=== PATIENT | male | born 1970 | race African-American/Black ===

== ENCOUNTER 2022-05-27 08:09 | Emergency (ER) | payer BC, SELFPAY ==
[2022-05-27 08:16] VITALS: BP 188/110; PULSE 72; RESP 20; TEMP 36.3; O2SAT 97
--- NOTE | 2022-05-27 08:31 | ED.SOB ---
HPI - SOB/Dyspnea General Chief Complaint: Upper Respiratory Infection Stated Complaint: Asthma Attack Time Seen by Provider: 05/27/22 08:32 Source: patient and RN notes reviewed Mode of arrival: ambulatory Limitations: no limitations History of Present Illness HPI Narrative: 51-year-old male presents with concern for asthma attack. He reports history of asthma. Reports since Wednesday he has been having episodes of shortness of breath and he has been using his albuterol inhaler. Reports since last night the albuterol inhaler does not seem to be helping as much, he had trouble sleeping because of his shortness of breath. Reports he is easily winded when doing normal activities such as walking across the room. He has never been hospitalized for asthma. He denies body aches, chills, sweats, fever. He reports nasal congestion and rhinorrhea. He denies known sick contacts. He last used his albuterol inhaler around 4 AM MD elicited complaint: asthma attack Related Data Home Medications Medication Instructions Recorded Confirmed albuterol 90 mcg/actuation aerosol mcg inhalation 05/27/22 inhaler atorvastatin 40 mg tablet 40 mg PO DAILY 05/27/22 05/27/22 gabapentin 300 mg capsule 300 mg PO DAILY 05/27/22 05/27/22 losartan 25 mg tablet 25 mg PO DAILY 05/27/22 05/27/22 metformin 1,000 mg tablet 1,000 mg PO BID 05/27/22 05/27/22 metoprolol succinate 50 mg 50 mg PO DAILY 05/27/22 05/27/22 tablet,extended release 24 hr Allergies Allergy/AdvReac Type Severity Reaction Status Date / Time morphine Allergy Itching Verified 05/27/22 08:36 Review of Systems Review of Systems: CONSTITUTIONAL: Denies malaise, chills, sweats, or fever. EYES: Denies visual changes, redness, or discharge. ENT: Reports rhinorrhea, congestion. Denies sinus pain, otalgia and sore throat. CARDIOVASCULAR: Denies chest pain, palpitations, or edema. RESPIRATORY: Reports cough, dyspnea. GASTROINTESTINAL: Denies abdominal pain, nausea, vomiting, diarrhea SKIN: Denies rash or itching. MUSCULOSKELETAL: Denies myalgia. NEUROLOGIC: Denies headache. All systems reviewed & are unremarkable except as noted in HPI and below PMFSH Comments At time of signature, agree with nursing past medical, surgical, social and family history. There is no relevant family history pertinent to the presenting complaint Exam Narrative: GENERAL: Well-appearing, well-nourished, and in no acute distress. HEAD: Normocephalic EYES: PERRLA, conjunctivae clear ENT: Nares clear, clear discharge. Mucous membranes moist. TM pearly gale with sharp light reflex bilaterally; no tragal tenderness. Oropharynx not erythematous without lesions. Tonsils not enlarged and without exudate, no drooling, no hoarseness, no trismus, uvula midline. NECK: Supple. No lymphadenopathy CHEST: Aeration fair, very scattered tight wheeze, otherwise clear to auscultation, breath sounds equal. No rhonchi, rales, or stridor. No respiratory distress, speaks in full sentences. HEART: Regular rate and rhythm. No murmur heard. SKIN: Warm, dry, no rash. NEURO: Alert and oriented x3. PSYCH: Normal mood and affect Course Course Emergency Course: Patient is aware of diagnosis, understands and agrees to treatment plan. Anticipatory guidance given. Patient agrees to follow-up as directed and is aware of reasons to seek care at the emergency department. Portions of this record may have been created with voice recognition software Level of Care: Express Care Visit Reevaluation(s) Reevaluation #1: Aeration improved after DuoNeb. Patient reports symptoms of shortness of breath have improved Date: 05/27/22 Time: 09:14 Vital Signs Vital signs: Vital Signs Temperature 97.4 F L 05/27/22 08:16 Pulse Rate 72 05/27/22 08:16 Respiratory Rate 20 05/27/22 08:16 Blood Pressure 188/110 H 05/27/22 08:16 Pulse Oximetry 97 05/27/22 08:16 Oxygen Delivery Room Air 05/27/22 08:16 Temperature 97.4 F L 05/27/22 0
[2022-05-27 08:40] VITALS: BP 200/110
[2022-05-27] MEDS: IPRATROPIUM BR 0.02% INH SOLN 0.5 MG/2.5 ML VIAL INHALATION (08:46)
[2022-05-27] MEDS: ALBUTEROL SULFATE NEB 2.5 MG/3 ML INH INHALATION (08:46)
== END 2022-05-27 09:16 | disposition home or self-care (01) ==
PROVIDERS: Emergency Provider Nurse Practitioner
DX: J45.901 Unspecified asthma with (acute) exacerbation (principal); E78.00 Pure hypercholesterolemia, unspecified; I10 Essential (primary) hypertension; E11.9 Type 2 diabetes mellitus without complications; Z95.1 Presence of aortocoronary bypass graft
CPT/HCPCS: 94640; 99213; G0463

== ENCOUNTER 2023-05-03 09:21 | Inpatient (IN) | payer BC, SELFPAY ==
[2023-05-03] VITALS (17 sets, daily range): BP systolic 140–190; BP diastolic 80–110; PULSE 80–92; RESP 16–22; TEMP 36.5–37.4; O2SAT 96–100; BMI 40.1
--- NOTE | ~2023-05-03 | US_ITS ---
EXAMINATION: US venous doppler [facility] DATE: 05/03/2023 18:56 INDICATION: edema . TECHNIQUE: Grayscale images without and with compression and Doppler images of the bilateral lower ex tremity veins were obtained. COMPARISON: None FINDINGS: The right common femoral vein, profunda (deep) femoral vein, femoral vein, popliteal vein, peroneal v ein, posterior tibial veins, gastrocnemius vein, and greater saphenous vein are patent. The left common femoral vein, profunda (deep) femoral vein, femoral vein, popliteal vein, peroneal v ein, posterior tibial veins, gastrocnemius vein, and greater saphenous vein are patent. IMPRESSION: Patent bilateral lower extremity veins. No evidence of deep venous thrombosis. Reviewed, dictated and finalized at location K.
--- NOTE | ~2023-05-03 | XR_ITS ---
EXAMINATION: XR chest 2V DATE: 05/03/2023 10:16 INDICATION: Chest pain and shortness of breath TECHNIQUE: AP and lateral views of the chest are obtained. COMPARISON: None available FINDINGS: There are minimal airspace opacities of the left lung base. No pleural effusion or pneumoth orax. The heart size is normal. Median sternotomy wires are consistent with prior cardiac surgery. Th ere is mild thoracic spondylosis. IMPRESSION: 1. Minimal left basilar airspace opacity, consistent with atelectasis versus pneumonia. Reviewed, dictated and finalized at location B. IMPRESSION: 1. Minimal left basilar airspace opacity, consistent with atelectasis versus pn eumonia.
--- NOTE | 2023-05-03 09:26 | ECG_ITS ---
Measurements Intervals [place] Rate: 87 P: 48 NM: 150 QRS: -38 QRSD: 113 T: 78 QT: 355 QTc: 428 Interpretive Statements SINUS RHYTHM POSSIBLE LEFT ATRIAL ENLARGEMENT [-0.1mV P WAVE IN V1/V2] LEFT ANTERIOR SUPERIOR HEMIBLOCK ABNORMAL ECG INTERPRETATION BASED ON A DEFAULT AGE OF 40 YEARS NO PREVIOUS ECG AVAILABLE FOR COMPARISON Electronically Signed On 05-03-2023 16:55:58 CDT by Valdo Layne M.D.
[2023-05-03] MEDS: ASPIRIN 81 MG CHEWABLE TABLET 324 MG PO (09:36)
[2023-05-03 09:55] LABS: Basophils Absolute Auto 0.1 K/mm3 (0.0-0.1); Basophils Percent Auto 0.5 % (0.2-1.2); Eosinophils Absolute Auto 0.3 K/mm3 (0-0.3); Eosinophils Percent Auto 2.5 % (0-4.4); Hemoglobin 12.4 g/dL (14.0-18.0); Immature Granulocyte Absolute 0.04 K/mm3 (0.00-0.031); Immature Granulocyte Percent A 0.4 % (0-0.5); Lymphocytes Absolute Auto 1.68 K/mm3 (0.9-3.2); Mean Corpuscular HGB Conc 30.2 g/dl (32-36); Mean Corpuscular Hemoglobin 23.5 pg (26-34); Mean Corpuscular Volume 77.7 fl (80-100); Mean Platelet Volume 10.6 fl (7.4-10.4); Monocytes Absolute Auto 0.7 K/mm3 (0.1-0.6); Neutrophils Absolute Auto 7.8 K/mm3 (1.3-6.7); Neutrophils Percent Auto 73.6 % (45.5-73.1); Platelet Count Result 282 k/mm3 (150-375); Red Blood Count 5.28 M/mm3 (4.6-6.20); Red Cell Distribution Width 16.5 % (11.5-14.5); White Blood Count 10.5 K/mm3 (4.5-10.0)
[2023-05-03 10:07] LABS: Alanine Aminotransferase 27 U/L (6-50); Albumin Level 4.4 g/dL (3.5-5.1); Alkaline Phosphatase 87 U/L (38-126); Anion Gap 11 mmol/L (8-16); Aspartate Amino Transferase 45 U/L (17-59); Bilirubin,Total 0.7 mg/dL (0.2-1.3); Blood Urea Nitrogen 17 mg/dL (9-20); Calcium 9.7 mg/dL (8.4-10.2); Carbon Dioxide 24 mmol/L (22-30); Chloride 96 mmol/L (98-107); Estimated Glomerular Filt Rate > 60; Glucose 424 mg/dL (65-110); INR 0.9; Lipase 181 U/L (23-300); Potassium 4.2 mmol/L (3.4-5.0); Prothrombin Time 12.3 Seconds (11.1-14.7); Sodium 131 mmol/L (137-145)
[2023-05-03 10:08] LABS: Partial Thromboplastin Time 24.4 SECONDS (22.3-36.8)
[2023-05-03 10:16] LABS: Troponin I 0.022 ng/mL (0.000-0.034)
--- NOTE | 2023-05-03 12:04 | PC.NURSE ---
Pts daughter called for update. This RN let daughter know that we are waiting on repeat labs and she can call back later for further update.
[2023-05-03 12:43] LABS: Troponin I 0.095 ng/mL (0.000-0.034)
--- NOTE | 2023-05-03 13:30 | ED.CHESTPAIN ---
HPI - Chest Pain General Chief Complaint: Chest Pain Stated Complaint: chest pain and sob Time Seen by Provider: 05/03/23 09:27 History of Present Illness HPI narrative: Patient is a 52-year-old male who presents ER with chest pain and shortness of breath. Ongoing over the last 4 days. Has history of cardiac bypass. Symptoms are worse with exertion. He does have some mild shortness of breath. Bleeding patient reports he has been having congestion and a productive cough. No lower extremity swelling or cramping. Reports compliance with home medication. Related Data Home Medications Medication Instructions Recorded Confirmed losartan 25 mg tablet 25 mg PO DAILY 05/27/22 05/03/23 metformin 1,000 mg tablet 1,000 mg PO BID 05/27/22 05/03/23 atorvastatin 80 mg tablet 80 mg PO DAILY 05/03/23 05/03/23 empagliflozin 25 mg tablet 25 mg PO DAILY 05/03/23 05/03/23 (Jardiance) fluoxetine 20 mg capsule 40 mg PO DAILY 05/03/23 05/03/23 gabapentin 400 mg capsule 400 mg PO QID 05/03/23 05/03/23 hydrochlorothiazide 25 mg tablet 25 mg PO DAILY 05/03/23 05/03/23 metoprolol succinate 100 mg 100 mg PO DAILY 05/03/23 05/03/23 tablet,extended release 24 hr Allergies Allergy/AdvReac Type Severity Reaction Status Date / Time morphine Allergy Itching Verified 05/03/23 09:34 Review of Systems Review of Systems: All systems reviewed & are unremarkable except as noted in HPI and below Constitutional: Constitutional: Denies chills, Denies fatigue and Denies fever(s) ENT: Denies nasal congestion and Denies sore throat Cardiovascular: Cardiovascular: Reports chest pain, Denies rapid heart rate and Denies radiating jaw, neck or arm pain Respiratory: Respiratory: Reports cough, Reports dyspnea and Denies wheezing Gastrointestinal: Gastrointestinal: Denies abdominal pain, Denies nausea and Denies vomiting Musculoskeletal: Musculoskeletal: Denies back pain, Denies arthralgias, Denies joint swelling and Denies muscle cramps Integumentary/Breasts: Skin/Breast: Denies erythema and Denies rash PMF Past Medical History Medical History (Updated 05/03/23 @ 19:58 by Devin Sotelo MD) Asthma Coronary artery disease History of rhabdomyolysis Hypertension associated with diabetes Mixed diabetic hyperlipidemia associated with type 2 diabetes mellitus Morbid obesity with BMI of 40.0-44.9, adult DANITA (obstructive sleep apnea) Peripheral neuropathy Type 2 diabetes mellitus Surgical History Surgical History (Updated 05/03/23 @ 16:35 by Alona Dash PA-C) History of five vessel coronary artery bypass (2019) Done at [place]. Family History Family History Other Coronary artery disease Social History Social History Social History: Surrogate medical decision maker: yoli Dumont. Code status: Full code. Smoking status: Never smoker Alcohol intake: current Alcohol use details: History of heavier alcohol use. Occasional binges. Substance use: never Lack of Transportation: No Lack of Food: Never True Current Housing: I Have Housing Concerned About Future Housing: No Difficulty Paying Gas/Electric Bills: No Difficulty Paying for Meds: No Currently Unemployed: No Education: High School Diploma/GED Difficulty w/ Childcare or Family Care: No Additional living arrangements comments: Lives with severino and several of her family members have moved into their home as well. Additional occupation/education comments: Software. Spiritual care concerns: No Exam Narrative: GENERAL: Well-appearing, well-nourished, and in no acute distress. HEAD: Normocephalic, atraumatic. EYES: PERRL and EOMI. ENT: Mucous membranes moist. CHEST: Clear to auscultation. No respiratory distress. HEART: Regular rate and rhythm. Normal peripheral pulses. ABDOMEN: Soft, nontender, nondistended. EXT
[2023-05-03] MEDS: HEPARIN SODIUM 5,000 UNITS/ML VIAL 4000 UNITS IV PUSH ×2 (14:04→21:24)
[2023-05-03] MEDS: HEPARIN SOD/D5W 100 UNITS/ML 25,000 UNITS/250 ML BAG 10 UNITS IV CONT (14:05)
--- NOTE | 2023-05-03 15:42 | PM.CNCAR ---
Assessment and Plan Assessment and plan (1) NSTEMI (non-ST elevated myocardial infarction): Code(s): I21.4 - Non-ST elevation (NSTEMI) myocardial infarction Status: Acute Assessment and Plan: Patient presents with concerning chest pressure some atypical constant over past several days nonetheless with a prior known history of 5 vessel bypass 2019 and multiple risk factors including diabetes mellitus, hypertension, hyperlipidemia with elevated troponin concerning for NSTEMI. Keep patient NPO after midnight. Agree with anticoagulation with heparin infusion for now. Continue aspirin 81 mg daily for antiplatelet therapy. Continue atorvastatin 40 mg bedtime, Toprol XL 50 mg daily. We discussed risk versus benefit in this regard medical management versus invasive angiography for definitive evaluation of coronary anatomy. Patient verbalized understanding. Repeat 12 lead ECG. Repeat troponin in a.m.. If severe and unrelenting chest pain and or hemodynamic instability or urgent coronary angiography may be considered. Patient is hemodynamically stable and on room air at this time. Continue monitor closely. Continue to monitor on telemetry. Discussed risks and benefits invasive angiography versus medical therapy. All questions answered to his satisfaction. Add nitroglycerin paste given chest pain and uncontrolled hypertension. -aspirin 81 mg daily, atorvastatin 40 mg daily. Continue beta christian for antianginal therapy. Nitropaste as above for antianginal benefit. -will plan to keep patient NPO after midnight for anticipated invasive angiography and delineation of coronary anatomy. Risks vs benefits of invasive angiography discussed. Continue monitor patient very closely in IMU. Patient high risk for complications including arrhythmias. 2D echocardiogram in a.m.. (2) Hypertension associated with diabetes: Code(s): E11.59 - Type 2 diabetes mellitus with other circulatory complications; I15.2 - Hypertension secondary to endocrine disorders Status: Acute Assessment and Plan: Patient hypertensive at presentation and remains so. Resume antihypertensive therapy including losartan 25 mg daily and Toprol XL 50 mg daily for blood pressure control. (3) Upper respiratory infection: Code(s): J06.9 - Acute upper respiratory infection, unspecified Status: Acute Assessment and Plan: Patient presents with symptoms suggestive of URI with ongoing cough despite azithromycin and prednisone. However, while there may be a component of musculoskeletal chest pain due to frequent coughing troponin elevation concerning for NSTEMI as a separate process of the chest x-ray suggests possible atelectasis versus pneumonia bronchodilator therapy per hospitalist service with albuterol. Remains on prednisone. Need for antibiotics per primary service. (4) Mixed diabetic hyperlipidemia associated with type 2 diabetes mellitus: Code(s): E11.69 - Type 2 diabetes mellitus with other specified complication; E78.2 - Mixed hyperlipidemia Status: Acute Assessment and Plan: Continue atorvastatin 40 mg bedtime. Check lipid panel. Goal LDL less than 70. Further adjustments as appropriate. (5) DANITA (obstructive sleep apnea): Code(s): G47.33 - Obstructive sleep apnea (adult) (pediatric) Status: Acute Assessment and Plan: Patient has yet to receive CPAP at home but states it was due this week. Will place CPAP while in hospital. (6) Diabetes mellitus: Qualifiers: Diabetes mellitus type: type 2 Diabetes mellitus skilled nursing insulin use: without skilled nursing use Diabetes mellitus complication status: with circulatory complication Code(s): E11.9 - Type 2 diabetes mellitus without complications Status: Acute Assessment and Plan: Glucose control per primary service. Hyperglycemia contributed by use of prednisone for treatment of URI symptoms. (7) Morbid obesity with BMI of 40.0-44.9
--- NOTE | 2023-05-03 15:52 | PM.IMHP ---
H&P: HPI History of Present Illness Date/Time: 05/03/23 15:30 Chief Complaint: Chest pain. Narrative: This is a very pleasant 52-year-old male with coronary artery disease status post 5 vessel bypass in 2019, hypertension, hyperlipidemia, type 2 diabetes mellitus, and asthma who presented to the emergency department via private vehicle from home for evaluation of chest pain. The patient provides the following history. He normally has a dry cough but last week it became productive of yellowish-brown sputum. He was seen in urgent care at which time he was prescribed a Z-Ronald for an upper respiratory infection; he tested negative for COVID at that time. He continues to have cough however his phlegm is now clear. The last several days he has started wheezing which has not improved with his rescue inhaler. He is now having nonradiating, diffuse anterior chest pressure. On occasion he has palpitations and sensations of racing heart as well. He has been sweating more than normal and has had some nausea and lightheadedness. Some family members have had similar URI symptoms as well. He reports increasing stress recently. He denies fever, chills, pleuritic pain, orthopnea, paroxysmal nocturnal dyspnea, vomiting, and calf pain. In the ED: He was afebrile on arrival. Blood pressure has been as high as 190/106. Labs were significant for WBC count 10.5, hemoglobin 12.4, sodium 131, potassium 4.2, creatinine 1.00, glucose 424, 0.095. EKG showed a sinus rhythm with left axis deviation no acute ST segment elevations or depressions. He was given aspirin 324 mg and has been started on heparin drip and is being admitted in this setting for close monitoring and Cardiology consultation. Review of Systems Review of Systems: Twelve systems were reviewed. He reports having a runny nose and some sore throat last week when he had the cough but that has improved somewhat. He continues to have a cough as detailed above. His most recent hemoglobin A1c was 7.2%. Random glucose today however was over 400. No history of DVT. Except as documented, all other systems were reviewed and are negative. [facility] Past Medical History Medical History (Updated 05/03/23 @ 16:19 by Alona Dash PA-C) Asthma Coronary artery disease History of rhabdomyolysis Hypertension associated with diabetes Mixed diabetic hyperlipidemia associated with type 2 diabetes mellitus Morbid obesity with BMI of 40.0-44.9, adult Peripheral neuropathy Type 2 diabetes mellitus Surgical History Surgical History (Updated 05/03/23 @ 16:35 by Alona Dash PA-C) History of five vessel coronary artery bypass (2019) Done at [place]. Family History Family History (Updated 05/03/23 @ 16:02 by Alona Dash PA-C) Other Coronary artery disease Social History Social History (Updated 05/03/23 @ 16:06 by Alona Dash PA-C) Social History: Surrogate medical decision maker: yoli Dumont. Code status: Full code. Smoking status: Never smoker Alcohol intake: current Alcohol use details: History of heavier alcohol use. Occasional binges. Additional living arrangements comments: Lives with severino and several of her family members have moved into their home as well. Additional occupation/education comments: Software. Meds Home Medications and Allergies Home Medications Medication Instructions Recorded Confirmed Type albuterol 90 mcg/actuation aerosol mcg inhalation 05/27/22 History inhaler albuterol sulfate 90 mcg/actuation 2 puff inhalation QID PRN 05/27/22 Rx aerosol inhaler shortness of breath or wheezing #8.5 grams atorvastatin 40 mg tablet 40 mg PO DAILY 05/27/22 05/27/22 History gabapentin 300 mg capsule 300 mg PO DAILY 05/27/22 05/27/22 History losartan 25 mg tablet 25 mg PO DAILY 05/27/22 05/27/22 History metformin 1,000 mg tablet 1,000 mg PO BID 05/27/22 05/27/22 History metoprolol succinate 50 mg 50 mg PO DAILY 05/27/22 05/27/22 Histor
[2023-05-03 15:54] LABS: Troponin I 0.234 ng/mL (0.000-0.034)
[2023-05-03] MEDS: NITROGLYCERIN SL 0.4 MG TABLET SUBLINGUAL (16:02)
--- NOTE | 2023-05-03 16:14 | ECG_ITS ---
Measurements Intervals [place] Rate: 82 P: 29 MI: 145 QRS: -31 QRSD: 111 T: 63 QT: 372 QTc: 435 Interpretive Statements SINUS RHYTHM LEFT ANTERIOR SUPERIOR HEMIBLOCK ABNORMAL ECG COMPARED TO ECG 05/03/2023 09:31:52 NO SIGNIFICANT DIFFERENCE Electronically Signed On 05-03-2023 17:19:31 CDT by Valdo Layne M.D.
--- NOTE | 2023-05-03 16:19 | ADMGEN ---
This patient, Simba Quijano, was admitted to IMU Room 205-02. Patient/family oriented to hospital policies and general routines including ID bracelet, bed and alarms, visiting hours, pain management, procedures, bathroom and other care routines, personal items, smoking policy, room service/diet, and visiting hours. Information on how to activate the Rapid Response Team has been discussed. Patient/Family are encouraged to report perceived risks to care and to ask questions if they do not understand what they are told or what they should do.
[2023-05-03 17:18] LABS: Iron 60 ug/dL (49-181); Percent Iron Saturation 13 % (20-50)
[2023-05-03 18:36] LABS: Hemoglobin A1C 11.9 % (<5.7)
[2023-05-03 18:55] LABS: Glucose Point of Care 309 mg/dl (65-105)
[2023-05-03] MEDS: INSULIN ASPART (*BKC) 100 UNITS/ML SUB-Q ×2 (18:57→21:35)
[2023-05-03 19:08] LABS: Folic Acid > 20.0 ng/mL (2.76->20)
[2023-05-03 20:19] LABS: Partial Thromboplastin Time 29.7 SECONDS (22.3-36.8)
[2023-05-03 20:24] LABS: Glucose Point of Care 302 mg/dl (65-105)
[2023-05-03] MEDS: IPRATROPIUM BR 0.02% INH SOLN 0.5 MG/2.5 ML VIAL INHALATION (20:32)
[2023-05-03] MEDS: ALBUTEROL SULFATE NEB 2.5 MG/3 ML INH INHALATION (20:32)
[2023-05-03] MEDS: NITROGLYCERIN OINTMENT 1 INCH DOSE 0.5 INCH TRANSDERM (21:47)
[2023-05-04] VITALS (22 sets, daily range): BP systolic 101–155; BP diastolic 35–94; PULSE 71–90; RESP 20–22; TEMP 36.3–36.7; O2SAT 94–99
--- NOTE | 2023-05-04 | ECHO_ITS ---
Patient Info Name: Simba Quijano Age: 52 years : 1970 Gender: Male Ht: 72 in Wt: 294 lbs BSA: 2.66 m2 HR: 80 bpm BP: 145 / 35 mmHg Heart Rhythm: Sinus Rhythm Technical Quality: Poor Exam Date: 05/04/2023 3:25 PM Exam Location: [facility] Patient Status: Inpatient Admit Date: 05/03/2023 Staff Ordering Physician: Santy Sanchez MD (cuauhtemoc/balaji) Furnace Caretaker: Chirag Capone RDCS Attending Provider: Erum Ardon DO Referring Physician: Daniel MORALES; Exam Type: CA echo dop color flow w con Study Info Indications - NSTEMI Complete two-dimensional, color flow and Doppler transthoracic echocardiogram is performed with contrast to opacify the left ventricle and to improve the deliniation of the left ventricle endocardial borders. Reason for Poor Study: poor echocardiographic windows Summary 1. Technically difficult study with limited views. Definity contrast enhancement administered. 2. Left ventricular chamber dimension is normal. 3. Left ventricular systolic function is normal, estimated at 65-70%. 4. There is moderately increased left ventricular wall thickness. 5. The left ventricular diastolic function is grade II diastolic dysfunction. 6. There is no aortic valve stenosis. 7. There is trace mitral valve regurgitation. 8. There is trace tricuspid valve regurgitation. 9. No pulmonary hypertension, estimated pulmonary arterial systolic pressure is 10 mmHg. Left Ventricle Left ventricular chamber dimension is normal. Left ventricular systolic function is normal, estimated at 65-70%. There is moderately increased left ventricular wall thickness. The left ventricular diastolic function is grade II diastolic dysfunction. Technically difficult study with limited views. Definity contrast enhancement administered. Right Ventricle Right ventricular chamber dimension is normal. Right ventricular systolic function is normal. Left Atria Left atrial chamber dimension is normal. Right Atria Right atrial chamber dimension is not well visualized. Aortic Valve The aortic valve is not well visualized. There is no aortic valve stenosis. There is no aortic valve regurgitation. Pulmonic Valve The pulmonic valve is not well visualized. Mitral Valve The mitral valve has normal leaflets. There is trace mitral valve regurgitation. The mitral valve annulus is mildly calcified. Tricuspid Valve The tricuspid valve leaflets are not well visualized. There is trace tricuspid valve regurgitation. No pulmonary hypertension, estimated pulmonary arterial systolic pressure is 10 mmHg. Pericardium/Pleural The pericardium appears normal. There is no pericardial effusion. Aorta The aortic root size at the sinus of Valsalva is normal. The prox ascending aorta size is normal. There is mild aortic atherosclerosis. Left Ventricular Outflow Tract Name Value Normal LVOT 2D LVOT Diameter 1.99 cm LVOT Doppler LVOT Peak Gradient 3 mmHg LVOT Mean Gradient 2 mmHg LVOT VTI 19.86 cm LVOT VTI/AV VTI Ratio 0.66 LVOT Stroke Volume 61.99 ml LVOT C
[2023-05-04] MEDS: AZITHROMYCIN 250 MG TABLET 500 MG PO (00:14)
[2023-05-04 00:58] LABS: Influenza A QL RT-PCR Negative (Negative); Influenza B QL RT-PCR Negative (Negative); SARS-CoV-2 RNA PCR Negative (Negative)
[2023-05-04 04:00] LABS: Basophils Percent Auto 0.4 % (0.2-1.2); Eosinophils Absolute Auto 0.3 K/mm3 (0-0.3); Eosinophils Percent Auto 2.9 % (0-4.4); Hematocrit 38.1 % (42.0-52.0); Immature Granulocyte Absolute 0.06 K/mm3 (0.00-0.031); Immature Granulocyte Percent A 0.6 % (0-0.5); Lymphocytes Absolute Auto 1.85 K/mm3 (0.9-3.2); Lymphocytes Percent Auto 18.6 % (18.3-44.2); Mean Corpuscular HGB Conc 31.5 g/dl (32-36); Mean Platelet Volume 9.9 fl (7.4-10.4); Monocytes Absolute Auto 0.8 K/mm3 (0.1-0.6); Monocytes Percent Auto 7.8 % (2.6-8.5); Neutrophils Percent Auto 69.7 % (45.5-73.1); Platelet Count Result 256 k/mm3 (150-375); Red Blood Count 5.01 M/mm3 (4.6-6.20); Red Cell Distribution Width 16.1 % (11.5-14.5)
[2023-05-04 04:12] LABS: Anion Gap 8 mmol/L (8-16); Blood Urea Nitrogen 18 mg/dL (9-20); Calcium 9.5 mg/dL (8.4-10.2); Carbon Dioxide 24 mmol/L (22-30); Chloride 99 mmol/L (98-107); Estimated CRCL calculation 106 ml/min; Estimated Glomerular Filt Rate > 60; Glucose 348 mg/dL (65-110); Potassium 4.3 mmol/L (3.4-5.0); Sodium 131 mmol/L (137-145)
[2023-05-04 04:13] LABS: Partial Thromboplastin Time 38.8 SECONDS (22.3-36.8)
--- NOTE | 2023-05-04 04:20 | PCRCNOTE ---
Pt refused to wear CPAP over night. Says he couldn't tolerate it yet. RN aware
[2023-05-04] MEDS: HEPARIN SODIUM 5,000 UNITS/ML VIAL 4000 UNITS IV PUSH ×2 (04:36→12:25)
--- NOTE | 2023-05-04 05:01 | PCRCNOTE ---
PT REFUSED 02:00 JULIA DAS.
[2023-05-04] MEDS: NITROGLYCERIN OINTMENT 1 INCH DOSE 0.5 INCH TRANSDERM ×2 (05:18→12:40)
[2023-05-04] MEDS: HEPARIN SOD/D5W 100 UNITS/ML 25,000 UNITS/250 ML BAG 18 UNITS IV CONT (05:53)
[2023-05-04] MEDS: INSULIN ASPART (*BKC) 100 UNITS/ML 8 UNITS SUB-Q (06:13)
[2023-05-04] MEDS: INSULIN ASPART (*BKC) 100 UNITS/ML SUB-Q ×4 (08:28→20:20)
[2023-05-04 08:33] LABS: Glucose Point of Care 277 mg/dl (65-105)
[2023-05-04] MEDS: IPRATROPIUM BR 0.02% INH SOLN 0.5 MG/2.5 ML VIAL INHALATION ×3 (08:56→22:05)
[2023-05-04] MEDS: ALBUTEROL SULFATE NEB 2.5 MG/3 ML INH INHALATION ×3 (08:56→22:06)
[2023-05-04] MEDS: ATORVASTATIN 40 MG TABLET 80 MG PO (10:07)
[2023-05-04] MEDS: AZITHROMYCIN 250 MG TABLET PO (10:08)
[2023-05-04] MEDS: LOSARTAN POTASSIUM 25 MG TABLET PO ×2 (10:08→12:39)
[2023-05-04] MEDS: FLUoxetine HCL 20 MG CAPSULE 40 MG PO (10:08)
[2023-05-04] MEDS: EMPAGLIFLOZIN 25 MG TABLET PO (10:08)
[2023-05-04] MEDS: GABAPENTIN 400 MG CAPSULE PO ×4 (10:08→19:27)
[2023-05-04] MEDS: hydroCHLOROthiazide 25 MG TABLET PO (10:08)
[2023-05-04] MEDS: METOPROLOL SUCCINATE EXT REL 100 MG TABCR PO (10:09)
[2023-05-04] MEDS: ACETAMINOPHEN 325 MG TABLET 650 MG PO ×2 (10:09→19:27)
[2023-05-04 10:52] LABS: Partial Thromboplastin Time 57.7 SECONDS (22.3-36.8)
--- NOTE | 2023-05-04 11:45 | PM.PNCARD ---
Progress Note: A&P Assessment and Plan (1) Non-ST elevated myocardial infarction (non-STEMI): Code(s): I21.4 - Non-ST elevation (NSTEMI) myocardial infarction Status: Acute Assessment and Plan: Patient presents with concerning chest pressure, some atypical features, constant over past several days. Nonetheless with a prior known history of 5 vessel bypass 2019 and multiple risk factors including diabetes mellitus, hypertension, hyperlipidemia with elevated troponin concerning for NSTEMI.? Agree with anticoagulation with heparin infusion for now.? Continue aspirin 81 mg daily for antiplatelet therapy.? Continue atorvastatin 80 mg bedtime, Toprol XL 100mg daily.? Dr. Sweet discussed with the patient on 05/03 regarding cardiac catheterization vs medical management with regard to indications for cardiac cath and risks vs benefits of management/treatment options. Patient was agreeable to cardiac cath on 05/03, however, upon my discussion with the patient this morning, he states he does not want cardiac cath at this time and wants to do medical management. Recommendations: - Heparin drip for total of 48 hours. - ASA 81mg once daily - High-intensity statin - Continue Toprol. - Will optimize antianginal therapy with the addition of Imdur 30mg QD. - Needs better blood pressure control. Increase Losartan to 50mg as noted below. - Obtain echocardiogram. (2) Hypertension associated with diabetes: Code(s): E11.59 - Type 2 diabetes mellitus with other circulatory complications; I15.2 - Hypertension secondary to endocrine disorders Status: Acute Assessment and Plan: Patient hypertensive at presentation and remains so. On Losartan 25mg QD, HCTZ 25mg QD, and Toprol 100mg QD. Will increase Losartan to 50mg to optimize blood pressure control. (3) Upper respiratory infection: Code(s): J06.9 - Acute upper respiratory infection, unspecified Status: Acute Assessment and Plan: Patient presents with symptoms suggestive of URI with ongoing cough despite azithromycin and prednisone.? However, while there may be a component of musculoskeletal chest pain due to frequent coughing troponin elevation concerning for NSTEMI as a separate process of the chest x-ray suggests possible atelectasis versus pneumonia bronchodilator therapy per hospitalist service with albuterol.? Remains on prednisone.? Need for antibiotics per primary service. Blood cultures ordered and pending. (4) Mixed diabetic hyperlipidemia associated with type 2 diabetes mellitus: Code(s): E11.69 - Type 2 diabetes mellitus with other specified complication; E78.2 - Mixed hyperlipidemia Status: Acute Assessment and Plan: Continue atorvastatin 80 mg bedtime.? Check lipid panel.? Goal LDL less than 70.? Further adjustments as appropriate. (5) DANITA (obstructive sleep apnea): Code(s): G47.33 - Obstructive sleep apnea (adult) (pediatric) Status: Acute Assessment and Plan: Patient has yet to receive CPAP at home but states it was due this week.? Will place CPAP while in hospital. (6) Diabetes mellitus: Qualifiers: Diabetes mellitus type: type 2 Diabetes mellitus skilled nursing insulin use: without skilled nursing use Diabetes mellitus complication status: with circulatory complication Code(s): E11.9 - Type 2 diabetes mellitus without complications Status: Acute Assessment and Plan: Glucose control per primary service.? Hyperglycemia contributed by use of prednisone for treatment of URI symptoms. (7) Morbid obesity with BMI of 40.0-44.9, adult: Code(s): E66.01 - Morbid (severe) obesity due to excess calories; Z68.41 - Body mass index [BMI] 40.0-44.9, adult Status: Acute Assessment and Plan: Lifestyle modification counseling. Subjective Date/time seen: 05/04/23 11:45 Interval history: Reason for visit: NSTEMI HPI: Patient is a very pleasant 52-year-old Afro-[place] male with
[2023-05-04 12:12] LABS: Cholesterol 284 mg/dL (0-200); HDL Direct 40 mg/dL
[2023-05-04 12:22] LABS: LDL Cholesterol Direct 97 mg/dL
[2023-05-04 12:35] LABS: Glucose Point of Care 274 mg/dl (65-105)
[2023-05-04] MEDS: ISOSORBIDE MONONITRATE 30 MG TAB.ER.24H PO (12:40)
[2023-05-04 12:46] LABS: Triglycerides 1293 mg/dL (<150)
[2023-05-04] MEDS: PERFLUTREN LIPID MICROSPHERES 1.5 ML VIAL DILUTED TO 10 ML TOTAL VOLUME IV PUSH (15:50)
--- NOTE | 2023-05-04 16:07 | PM.IMPN ---
Progress Note: A&P Assessment and Plan (1) Non-ST elevated myocardial infarction: Code(s): I21.4 - Non-ST elevation (NSTEMI) myocardial infarction Status: Acute (2) Type 2 diabetes mellitus with hyperglycemia: Code(s): E11.65 - Type 2 diabetes mellitus with hyperglycemia Status: Acute (3) Upper respiratory infection: Code(s): J06.9 - Acute upper respiratory infection, unspecified Status: Acute (4) Abnormal chest x-ray: Code(s): R93.89 - Abnormal findings on diagnostic imaging of other specified body structures Status: Acute (5) Coronary artery disease: Code(s): I25.10 - Atherosclerotic heart disease of [place] coronary artery without angina pectoris Status: Acute (6) Asthma: Code(s): J45.909 - Unspecified asthma, uncomplicated Status: Acute (7) Hypertension associated with diabetes: Code(s): E11.59 - Type 2 diabetes mellitus with other circulatory complications; I15.2 - Hypertension secondary to endocrine disorders Status: Acute Plan The patient presented to the emergency department for evaluation of anterior chest pressure he has also reported to have dry cough over the past week but has progressed to become productive with yellow brown sputum. He was prescribed a Z-Ronald for the infection test negative for COVID. Assault did to be wheezy with did improve with rescue inhaler reports some palpitation no fever chills not present to the ER. In the ED was afebrile hypertensive WBC 10.5 blood sugar was 424. Troponin was 0.095. Chest x-ray showed minimal left basilar airspace disease. Treated for community-acquired pneumonia with ceftriaxone and azithromycin Serial troponin elevated from 0.095-0.234 to 0.190. Suggestive of non ST elevation [place]. Started on heparin drip. Aspirin and beta-christian with statin Cardiology has been consulted and plan for medical management Discussed with Cardiology Type 2 diabetes with hyperglycemia A1c came back elevated at 11.9. Start basal bolus regimen Hyperlipidemia on atorvastatin at home. 284/. TG quite elevated. Atorvastatin dose has been increased to 80 mg Venous duplex negative for DVT CAD status post CABG in 2019 Subjective Date/time seen: 05/04/23 16:07 Interval history: no overnight events ,feels much better. no fever, chills. couhging is less. no fruther cehst pain. on heaprin gtt. discussed with nursing staff. Review of Systems Review of Systems: All systems reviewed & are unremarkable except as noted in HPI and below Exam Narrative: General: Well-developed, nontoxic-appearing gentleman sitting up in bed in no acute distress. HEENT: PERRL, EOMI. Sclera anicteric. Oral mucosa moist. Neck: Supple. Respiratory: Lungs are clear to auscultation bilaterally. Cardiovascular: Regular rate and rhythm with S1-S2. Gastrointestinal: Abdomen is soft, obese, nontender, and nondistended with positive bowel sounds. Skin: Warm and dry. Extremities: No cyanosis or clubbing. trace lower extremity edema softening to the knees. Neurological: Alert. Cranial nerves 2-12 are grossly intact. Speech is clear. No facial asymmetry. No gross focal deficits to casual conversation. Psychiatric: Pleasant and cooperative with normal mood and affect. Judgment and insight intact. Objective Data Vital Signs Vital Signs: Vital Signs - 24 hr 05/03/23 18:00 05/03/23 20:00 05/03/23 20:35 Temperature 97.7 F Pulse Rate 81 85 83 Respiratory Rate 20 22 H Blood Pressure 160/87 H Pulse Oximetry 97 Oxygen Delivery 05/03/23 20:00 05/03/23 23:08 05/04/23 00:00 Temperature 97.9 F Pulse Rate 83 90 90 Respiratory Rate 22 H 22 H 22 H Blood Pressure 152/95 H Pulse Oximetry 97 99 99 Oxygen Delivery Room Air Room Air 05/03/23 20:00 05/03/23 22:00 05/04/23 00:00 Temperature Pulse Rate 84 85 86 Respiratory Rate Blood Pressure Pulse Oximetry Oxygen Delivery
[2023-05-04 16:14] LABS: Glucose Point of Care 226 mg/dl (65-105)
[2023-05-04] MEDS: HEPARIN SOD/D5W 100 UNITS/ML 25,000 UNITS/250 ML BAG 20 UNITS IV CONT (19:26)
[2023-05-04 19:45] LABS: Partial Thromboplastin Time 70.9 SECONDS (22.3-36.8)
[2023-05-04 20:02] LABS: Glucose Point of Care 276 mg/dl (65-105)
[2023-05-04] MEDS: INSULIN GLARGINE (*BKC) 100 UNITS/ML 20 UNITS SUB-Q (21:30)
[2023-05-05] VITALS (22 sets, daily range): BP systolic 102–119; BP diastolic 62–75; PULSE 65–86; RESP 18–22; TEMP 36.1–36.6; O2SAT 94–98
[2023-05-05] MEDS: ALBUTEROL SULFATE NEB 2.5 MG/3 ML INH INHALATION ×4 (02:57→20:10)
[2023-05-05] MEDS: IPRATROPIUM BR 0.02% INH SOLN 0.5 MG/2.5 ML VIAL INHALATION ×4 (02:57→20:10)
[2023-05-05 03:34] LABS: Basophils Percent Auto 0.4 % (0.2-1.2); Eosinophils Absolute Auto 0.3 K/mm3 (0-0.3); Eosinophils Percent Auto 3.6 % (0-4.4); Hematocrit 39.6 % (42.0-52.0); Hemoglobin 12.2 g/dL (14.0-18.0); Immature Granulocyte Absolute 0.06 K/mm3 (0.00-0.031); Immature Granulocyte Percent A 0.6 % (0-0.5); Lymphocytes Absolute Auto 2.07 K/mm3 (0.9-3.2); Lymphocytes Percent Auto 21.9 % (18.3-44.2); Mean Corpuscular HGB Conc 30.8 g/dl (32-36); Mean Corpuscular Hemoglobin 23.6 pg (26-34); Mean Corpuscular Volume 76.6 fl (80-100); Monocytes Absolute Auto 0.6 K/mm3 (0.1-0.6); Monocytes Percent Auto 6.2 % (2.6-8.5); Neutrophils Absolute Auto 6.4 K/mm3 (1.3-6.7); Neutrophils Percent Auto 67.3 % (45.5-73.1); Platelet Count Result 266 k/mm3 (150-375); Red Blood Count 5.17 M/mm3 (4.6-6.20); White Blood Count 9.5 K/mm3 (4.5-10.0)
[2023-05-05 03:48] LABS: Partial Thromboplastin Time 69.6 SECONDS (22.3-36.8)
[2023-05-05 03:49] LABS: Alanine Aminotransferase 35 U/L (6-50); Albumin Level 4.3 g/dL (3.5-5.1); Alkaline Phosphatase 82 U/L (38-126); Anion Gap 8 mmol/L (8-16); Aspartate Amino Transferase 66 U/L (17-59); Bilirubin,Total 0.4 mg/dL (0.2-1.3); Blood Urea Nitrogen 19 mg/dL (9-20); Carbon Dioxide 26 mmol/L (22-30); Chloride 97 mmol/L (98-107); Estimated CRCL calculation 97 ml/min; Estimated Glomerular Filt Rate > 60; Glucose 287 mg/dL (65-110); Magnesium 2.2 mg/dL (1.6-2.3); Sodium 131 mmol/L (137-145)
[2023-05-05] MEDS: HEPARIN SODIUM 5,000 UNITS/ML VIAL 4000 UNITS IV PUSH (04:30)
[2023-05-05] MEDS: HEPARIN SOD/D5W 100 UNITS/ML 25,000 UNITS/250 ML BAG 22 UNITS IV CONT (04:30)
[2023-05-05 08:32] LABS: Glucose Point of Care 271 mg/dl (65-105)
[2023-05-05] MEDS: ASPIRIN 81 MG ENTERIC TABLET PO (09:09)
[2023-05-05] MEDS: ATORVASTATIN 40 MG TABLET 80 MG PO (09:10)
[2023-05-05] MEDS: GABAPENTIN 400 MG CAPSULE PO ×4 (09:10→20:12)
[2023-05-05] MEDS: ACETAMINOPHEN 325 MG TABLET 650 MG PO ×2 (09:11→20:10)
[2023-05-05] MEDS: EMPAGLIFLOZIN 25 MG TABLET PO (09:12)
[2023-05-05] MEDS: AZITHROMYCIN 250 MG TABLET PO (09:12)
[2023-05-05] MEDS: FLUoxetine HCL 20 MG CAPSULE 40 MG PO (09:12)
[2023-05-05] MEDS: METOPROLOL SUCCINATE EXT REL 100 MG TABCR PO (09:13)
[2023-05-05] MEDS: LOSARTAN POTASSIUM 50 MG TABLET PO (09:13)
[2023-05-05] MEDS: ISOSORBIDE MONONITRATE 30 MG TAB.ER.24H PO (09:13)
[2023-05-05] MEDS: hydroCHLOROthiazide 25 MG TABLET PO (09:14)
[2023-05-05] MEDS: INSULIN ASPART (*BKC) 100 UNITS/ML SUB-Q ×4 (09:17→20:12)
[2023-05-05] MEDS: INSULIN ASPART (*BKC) 100 UNITS/ML 7 UNITS SUB-Q ×3 (09:17→17:47)
--- NOTE | 2023-05-05 09:18 | IVDEFINITY ---
Prior to administration of IV Definity the patient was educated on the risks and benefits of the imaging enhancing agent including potential adverse side effects. The patient verbalized understanding. Allergies were verified. No exclusion criteria were identified and at least one of the following inclusion criteria were met: 1) physician request, 2) patient technically difficult to image (per the [place] [employer] guidelines of two or more segments not discernable within the apical view), or 3) questionable left ventricular function. ?
--- NOTE | 2023-05-05 10:37 | PM.IMPN ---
Progress Note: A&P Assessment and Plan (1) Non-ST elevated myocardial infarction: Code(s): I21.4 - Non-ST elevation (NSTEMI) myocardial infarction Status: Acute (2) Type 2 diabetes mellitus with hyperglycemia: Code(s): E11.65 - Type 2 diabetes mellitus with hyperglycemia Status: Acute (3) Upper respiratory infection: Code(s): J06.9 - Acute upper respiratory infection, unspecified Status: Acute (4) Abnormal chest x-ray: Code(s): R93.89 - Abnormal findings on diagnostic imaging of other specified body structures Status: Acute (5) Coronary artery disease: Code(s): I25.10 - Atherosclerotic heart disease of [place] coronary artery without angina pectoris Status: Acute (6) Asthma: Code(s): J45.909 - Unspecified asthma, uncomplicated Status: Acute (7) Hypertension associated with diabetes: Code(s): E11.59 - Type 2 diabetes mellitus with other circulatory complications; I15.2 - Hypertension secondary to endocrine disorders Status: Acute Plan COMMUNITY-ACQUIRED PNEUMONIA The patient presented to the emergency department for evaluation of anterior chest pressure he has also reported to have dry cough over the past week but has progressed to become productive with yellow brown sputum. He was prescribed a Z-Ronald for the infection test negative for COVID. AND wheezy with did improve with rescue inhaler reports some palpitation no fever chills not present to the ER. In the ED was afebrile hypertensive WBC 10.5 Chest x-ray showed minimal left basilar airspace disease. Treated for community-acquired pneumonia with ceftriaxone and azithromycin NSTEMI Serial troponin elevated from 0.095-0.234 to 0.190. Suggestive of non ST elevation [place]. Started on heparin drip. Aspirin and beta-christian with statin Cardiology has been consulted and plan for medical management Discussed with Cardiology Per willow machine tender, patient was agreeable to cardiac cath Cardiac is a.m. tomorrow Uncontrolled type 2 diabetes with hyperglycemia A1c came back elevated at 11.9. Start basal bolus regimen Glucose is better controlled now Hyperlipidemia on atorvastatin at home. 284/. TG quite elevated. Atorvastatin dose has been increased to 80 mg Venous duplex negative for DVT CAD status post CABG in 2019 Subjective Date/time seen: 05/05/23 10:37 Interval history: Saw and examined the patient. Patient still has intermittent chest pain, has cough with some phlegm, patient is afebrile, hemodynamically stable. Exam Narrative: General: Well-developed, nontoxic-appearing gentleman sitting up in bed in no acute distress. HEENT: PERRL, EOMI. Sclera anicteric. Oral mucosa moist. Neck: Supple. Respiratory: Lungs are clear to auscultation bilaterally. Cardiovascular: Regular rate and rhythm with S1-S2. Gastrointestinal: Abdomen is soft, obese, nontender, and nondistended with positive bowel sounds. Skin: Warm and dry. Extremities: No cyanosis or clubbing. trace lower extremity edema softening to the knees. Neurological: Alert. Cranial nerves 2-12 are grossly intact. Speech is clear. No facial asymmetry. No gross focal deficits to casual conversation. Psychiatric: Pleasant and cooperative with normal mood and affect. Judgment and insight intact. Objective Data Vital Signs Vital Signs: Vital Signs - 24 hr 05/04/23 12:00 05/04/23 13:15 05/04/23 13:36 Temperature 97.6 F Pulse Rate 79 80 74 Respiratory Rate 21 H 20 20 Blood Pressure 136/77 Pulse Oximetry 94 Oxygen Delivery 05/04/23 12:00 05/04/23 14:00 05/04/23 16:00 Temperature 97.3 F L Pulse Rate 85 71 71 Respiratory Rate 21 H Blood Pressure 110/66 Pulse Oximetry 96 Oxygen Delivery 05/04/23 20:00 05/04/23 16:00 05/04/23 18:00 Temperature 97.3 F L Pulse Rate 72 81 82 Respiratory Rate 22 H Blood Pressure 101/69 Pulse Oximetry 98 Oxygen Delivery
[2023-05-05 10:43] LABS: Partial Thromboplastin Time 85.7 SECONDS (22.3-36.8)
[2023-05-05 12:05] LABS: Glucose Point of Care 288 mg/dl (65-105)
[2023-05-05] MEDS: SODIUM CHLORIDE 1 GM TABLET PO ×2 (12:52→17:47)
[2023-05-05] MEDS: NITROGLYCERIN OINTMENT 1 INCH DOSE 0.5 INCH TRANSDERM (13:31)
--- NOTE | 2023-05-05 14:09 | PM.PNCARD ---
Progress Note: A&P Assessment and Plan (1) Non-ST elevated myocardial infarction (non-STEMI): Code(s): I21.4 - Non-ST elevation (NSTEMI) myocardial infarction Status: Acute Assessment and Plan: Patient presents with concerning chest pressure described as an elephant sitting on his chest as well as some atypical features, constant over past several days but worse with exertion as well and mild troponin elevation with concerning trend. Nonetheless with a prior known history of 5 vessel bypass 2019 and multiple risk factors including diabetes mellitus, hypertension, hyperlipidemia with elevated troponin concerning for NSTEMI.? Agree with anticoagulation with heparin infusion for now.? Continue aspirin 81 mg daily for antiplatelet therapy.? Continue atorvastatin 80 mg bedtime, Toprol XL 100mg daily.? Patient declined left heart catheterization yesterday as was previously recommended. However, after further consideration and discussion with me he states he is now willing to proceed with angiography and is concerned about his risk moving forward if he does not proceed. He understands risks and benefits in this regard. All questions answered to his satisfaction. He understands he angiography will need to be performed for femoral approach given his history of CABG. He is in agreement. Patient will be made NPO after midnight. Will hold heparin infusion at approximately 5:00 a.m. 05/06/2023 to be performed by Dr. Layne. Recommendations: - Heparin drip for total of 48 hours. Discontinue tomorrow morning. - ASA 81mg once daily. Additional antiplatelet therapy post coronary angiography as appropriate. - High-intensity statin with atorvastatin 80 mg daily - Continue Toprol 100 mg daily for BP control and antianginal therapy. -continue antianginal therapy with Imdur 30mg QD. Discontinue nitroglycerin paste. -EF preserved by echocardiogram although technically difficult study EF approximately 60% with moderate concentric left ventricular hypertrophy. Echocardiogram reviewed. -further recommendations after coronary angiography. We discuss potential for optimize medical management, possibility of percutaneous intervention/stent implantation in the very unlikely but possible circumstance in which repeat CABG may be warranted. (2) Hypertension associated with diabetes: Code(s): E11.59 - Type 2 diabetes mellitus with other circulatory complications; I15.2 - Hypertension secondary to endocrine disorders Status: Acute Assessment and Plan: Patient hypertensive at presentation much better controlled after addition of Imdur 30 mg daily and continuation of Losartan 25mg QD, HCTZ 25mg QD, and Toprol XL 100mg QD. Will hold off on increasing losartan to avoid symptomatic hypotension. (3) Upper respiratory infection: Code(s): J06.9 - Acute upper respiratory infection, unspecified Status: Acute Assessment and Plan: Patient presents with symptoms suggestive of URI with ongoing cough despite azithromycin and prednisone.? However, while there may be a component of musculoskeletal chest pain due to frequent coughing troponin elevation concerning for NSTEMI as a separate process of the chest x-ray suggests possible atelectasis versus pneumonia bronchodilator therapy per hospitalist service with albuterol.? Remains on prednisone.? Need for antibiotics per primary service. Further management including need for antibiotics per primary service. He remains on azithromycin orally. (4) Mixed diabetic hyperlipidemia associated with type 2 diabetes mellitus: Code(s): E11.69 - Type 2 diabetes mellitus with other specified complication; E78.2 - Mixed hyperlipidemia Status: Acute Assessment and Plan: Continue atorvastatin 80 mg bedtime.? Check lipid panel.? Goal LDL less than 70.? Further adjustments as appropriate. (5) DANITA (obstructive sleep apnea): Code(s): G47.33 - Obstructive sleep apnea (adult) (pediatric)
[2023-05-05] MEDS: HEPARIN SOD/D5W 100 UNITS/ML 25,000 UNITS/250 ML BAG 24 UNITS IV CONT (15:45)
[2023-05-05 16:44] LABS: Partial Thromboplastin Time 100.8 SECONDS (22.3-36.8)
[2023-05-05 17:00] LABS: Glucose Point of Care 239 mg/dl (65-105)
[2023-05-05 19:59] LABS: Glucose Point of Care 281 mg/dl (65-105)
[2023-05-05] MEDS: INSULIN GLARGINE (*BKC) 100 UNITS/ML 20 UNITS SUB-Q (20:12)
[2023-05-05] MEDS: HYDROcodone/acetaminophen (*CRX) 5-325 MG TABLET 1 TAB PO (21:38)
[2023-05-05] MEDS: guaiFENesin/DEXTROMETHORPHAN 10 ML UDC PO (21:39)
[2023-05-06] VITALS (26 sets, daily range): BP systolic 96–147; BP diastolic 58–81; PULSE 55–75; RESP 16–22; TEMP 36–36.6; O2SAT 92–99
[2023-05-06] MEDS: ALBUTEROL SULFATE NEB 2.5 MG/3 ML INH INHALATION ×3 (02:27→21:02)
[2023-05-06] MEDS: IPRATROPIUM BR 0.02% INH SOLN 0.5 MG/2.5 ML VIAL INHALATION ×3 (02:28→21:02)
[2023-05-06 04:54] LABS: Hematocrit 38.8 % (42.0-52.0); Hemoglobin 12.2 g/dL (14.0-18.0); Mean Corpuscular HGB Conc 31.4 g/dl (32-36); Mean Corpuscular Hemoglobin 23.9 pg (26-34); Mean Corpuscular Volume 75.9 fl (80-100); Mean Platelet Volume 10.2 fl (7.4-10.4); Platelet Count Result 264 k/mm3 (150-375); Red Blood Count 5.11 M/mm3 (4.6-6.20); Red Cell Distribution Width 15.8 % (11.5-14.5); White Blood Count 9.2 K/mm3 (4.5-10.0)
[2023-05-06 05:07] LABS: Anion Gap 3 mmol/L (8-16); Blood Urea Nitrogen 22 mg/dL (9-20); Calcium 9.8 mg/dL (8.4-10.2); Carbon Dioxide 30 mmol/L (22-30); Chloride 97 mmol/L (98-107); Estimated CRCL calculation 89 ml/min; Estimated Glomerular Filt Rate > 60; Glucose 202 mg/dL (65-110); Potassium 4.3 mmol/L (3.4-5.0); Sodium 130 mmol/L (137-145)
[2023-05-06 05:09] LABS: Partial Thromboplastin Time 118.7 SECONDS (22.3-36.8)
[2023-05-06 08:45] LABS: Glucose Point of Care 203 mg/dl (65-105)
--- NOTE | 2023-05-06 09:09 | PM.IMPN ---
Progress Note: A&P Assessment and Plan (1) Non-ST elevated myocardial infarction: Code(s): I21.4 - Non-ST elevation (NSTEMI) myocardial infarction Status: Acute (2) Type 2 diabetes mellitus with hyperglycemia: Code(s): E11.65 - Type 2 diabetes mellitus with hyperglycemia Status: Acute (3) Upper respiratory infection: Code(s): J06.9 - Acute upper respiratory infection, unspecified Status: Acute (4) Abnormal chest x-ray: Code(s): R93.89 - Abnormal findings on diagnostic imaging of other specified body structures Status: Acute (5) Coronary artery disease: Code(s): I25.10 - Atherosclerotic heart disease of [place] coronary artery without angina pectoris Status: Acute (6) Asthma: Code(s): J45.909 - Unspecified asthma, uncomplicated Status: Acute (7) Hypertension associated with diabetes: Code(s): E11.59 - Type 2 diabetes mellitus with other circulatory complications; I15.2 - Hypertension secondary to endocrine disorders Status: Acute (8) Uncontrolled hypertension: Code(s): I10 - Essential (primary) hypertension Status: Acute Plan COMMUNITY-ACQUIRED PNEUMONIA The patient presented to the emergency department for evaluation of anterior chest pressure he has also reported to have dry cough over the past week but has progressed to become productive with yellow brown sputum. He was prescribed a Z-Ronald for the infection test negative for COVID. AND wheezy with did improve with rescue inhaler reports some palpitation no fever chills not present to the ER. In the ED was afebrile hypertensive WBC 10.5 Chest x-ray showed minimal left basilar airspace disease. Treated for community-acquired pneumonia with ceftriaxone and azithromycin NSTEMI Serial troponin elevated from 0.095-0.234 to 0.190. Suggestive of non ST elevation [place]. Started on heparin drip. Aspirin and beta-christian with statin Cardiology has been consulted and plan for medical management Discussed with Cardiology Per hogshead liner, patient was agreeable to cardiac cath Cardiac is a.m. Per cardiology report: Severe multivessel coronary artery disease involving occlusion of the mid LAD as well as high-grade stenosis of the ramus intermedius branch and 1st OM circumflex branch as well as of the mid trunk of the circumflex.? The bifurcating RPDA appears to have 1 limb which is occluded and there is high-grade stenosis in the largest distal RPL branch as well. Uncontrolled hypertension Blood pressure 202/110 POA in the ED hypertension urgency Chronic patient is on losartan 50 mg daily p.o. metoprolol succinate 100 mg daily p.o. hydrochlorothiazide 25 mg daily p.o. Blood pressure is controlled in the target Uncontrolled type 2 diabetes with hyperglycemia A1c came back elevated at 11.9. Start basal bolus regimen Glucose is better controlled now Hyperlipidemia on atorvastatin at home. 284/. TG quite elevated. Atorvastatin dose has been increased to 80 mg Venous duplex negative for DVT CAD status post CABG in 2019 Subjective Date/time seen: 05/06/23 09:09 Interval history: Saw and examined the patient. Patient denies chest pain, shortness breast, cough, headache, focal weakness, vision change,, patient is afebrile, hemodynamically stable. Exam Narrative: General: Well-developed, nontoxic-appearing gentleman sitting up in bed in no acute distress. HEENT: PERRL, EOMI. Sclera anicteric. Oral mucosa moist. Neck: Supple. Respiratory: Lungs are clear to auscultation bilaterally. Cardiovascular: Regular rate and rhythm with S1-S2. Gastrointestinal: Abdomen is soft, obese, nontender, and nondistended with positive bowel sounds. Skin: Warm and dry. Extremities: No cyanosis or clubbing. trace lower extremity edema softening to the knees. Need to insert inside at right groin without hematoma Neurological: Alert. Cranial nerves 2-12 are grossly intact. Sp
[2023-05-06] MEDS: ISOSORBIDE MONONITRATE 30 MG TAB.ER.24H PO (09:32)
[2023-05-06] MEDS: LOSARTAN POTASSIUM 50 MG TABLET PO (09:32)
[2023-05-06] MEDS: ATORVASTATIN 40 MG TABLET 80 MG PO (09:32)
[2023-05-06] MEDS: METOPROLOL SUCCINATE EXT REL 100 MG TABCR PO (09:32)
[2023-05-06] MEDS: ASPIRIN 81 MG ENTERIC TABLET PO (09:33)
--- NOTE | 2023-05-06 11:46 | WPDMODSED ---
Moderate Sedation Note-Pt Data Patient Data Diagnosis: multivessel coronary disease status post CABG chest pain/ACS Present Complaint: intermittent back pain and thoracic back pain Procedure to be performed/Plan: left heart catheterization with coronary and CECILIA and vein graft angiography Allergies Allergy/AdvReac Type Severity Reaction Status Date / Time morphine Allergy Itching Verified 05/03/23 09:34 Home Medications Medication Instructions Recorded Confirmed Type albuterol sulfate 90 mcg/actuation 2 puff inhalation QID PRN 05/27/22 05/03/23 Rx aerosol inhaler shortness of breath or wheezing #8.5 grams losartan 25 mg tablet 25 mg PO DAILY 05/27/22 05/03/23 History metformin 1,000 mg tablet 1,000 mg PO BID 05/27/22 05/03/23 History atorvastatin 80 mg tablet 80 mg PO DAILY 05/03/23 05/03/23 History empagliflozin 25 mg tablet 25 mg PO DAILY 05/03/23 05/03/23 History (Jardiance) fluoxetine 20 mg capsule 40 mg PO DAILY 05/03/23 05/03/23 History gabapentin 400 mg capsule 400 mg PO QID 05/03/23 05/03/23 History hydrochlorothiazide 25 mg tablet 25 mg PO DAILY 05/03/23 05/03/23 History metoprolol succinate 100 mg 100 mg PO DAILY 05/03/23 05/03/23 History tablet,extended release 24 hr Current Medications: Active Medications Acetaminophen (Acetaminophen 325 Mg Tablet) 650 mg PO Q4H PRN PRN Reason: Mild Pain (1-3) or Fever Last Admin: 05/05/23 20:10 Dose: 650 mg Hydrocodone Bitart/Acetaminophen (Hydrocodone/Acetaminophen (*Crx) 5-325 Mg Tablet) 1 tab PO Q4H PRN PRN Reason: Pain Rated 4-6 Last Admin: 05/05/23 21:38 Dose: 1 tab Albuterol (Albuterol Sulfate Neb 2.5 Mg/3 Ml Inh) 2.5 mg INHALATION Q6HRT [facility] Last Admin: 05/06/23 08:13 Dose: Not Given Albuterol (Albuterol Sulfate (*Sp) Aerosol 1 Puff) 2 puff INHALATION QID PRN PRN Reason: shortness of breath or wheezing Aspirin (Aspirin 81 Mg Enteric Tablet) 81 mg PO QAM [facility] Last Admin: 05/06/23 09:33 Dose: 81 mg Atorvastatin Calcium (Atorvastatin 40 Mg Tablet) 80 mg PO DAILY [facility] Last Admin: 05/06/23 09:32 Dose: 80 mg Azithromycin (Azithromycin 250 Mg Tablet) 250 mg PO DAILY [facility] Stop: 05/07/23 09:01 Last Admin: 05/05/23 09:12 Dose: 250 mg Dextrose (Dextrose 50% 25 Gm/50 Ml Syringe) 12.5 gm IV PUSH PRN PRN; Protocol PRN Reason: Hypoglycemia Empagliflozin (Empagliflozin 25 Mg Tablet) 25 mg PO DAILY [facility] Last Admin: 05/05/23 09:12 Dose: 25 mg Fluoxetine HCl (Fluoxetine Hcl 20 Mg Capsule) 40 mg PO DAILY [facility] Last Admin: 05/05/23 09:12 Dose: 40 mg Gabapentin (Gabapentin 400 Mg Capsule) 400 mg PO QID [facility] Last Admin: 05/06/23 09:36 Dose: Not Given Glucagon (Glucagon For Inj 1 Mg Vial) 1 mg IM PRN PRN; Protocol PRN Reason: Hypoglycemia Glucose (Glucose Oral Gel 15 Gm Of Glucse In 37.5 Gm Tube) 15 gm PO PRN PRN; Protocol PRN Reason: Hypoglycemia Guaifenesin/Dextromethorphan (Guaifenesin/Dextromethorphan 10 Ml Udc) 10 ml PO Q4H PRN PRN Reason: Cough Last Admin: 05/05/23 21:39 Dose: 10 ml Heparin Sodium (Porcine) (Heparin Sodium 5,000 Units/Ml Vial) 4,000 units IV PUSH PRN PRN PRN Reason: aPTT 55 - 70 seconds Last Admin: 05/05/23 04:30 Dose: 4,000 units Heparin Sodium (Porcine) (Heparin Sodium 5,000 Units/Ml Vial) 4,000 units IV PUSH PRN PRN PRN Reason: aPTT less than 55 seconds Last Admin: 05/04/23 04:36 Dose: 4,000 units Hydrochlorothiazide (Hydrochlorothiazide 25 Mg Tablet) 25 mg PO DAILY [facility] Last Admin: 05/05/23 09:14 Dose: 25 mg Heparin Sodium/Dextrose (Heparin Sodium/D5w 100 Units/Ml) 25,000 units in 250 mls @ 0 mls/hr IV CONT .Q0M [facility]; Protocol Last Titration: 05/06/23 05:05 Dose: 0 units/hr, 0 mls/hr Dextrose (Dextrose 5% 1,000 Ml) 1,000 mls @ 100 mls/hr IVPB PRN PRN; Protocol PRN Reason: Hypoglycemia Ceftriaxone Sodium (Rocephin 1 Gm/Ns 50 Ml) 1 gm in 50 mls @ 100 mls/hr IVPB Q24H MARGARITO Last Infusion: 05/05/23 21:30 Dose: Infused Insulin Aspart (Insulin Aspart (*Bkc) 100 Units
--- NOTE | 2023-05-06 11:48 | WPDCARDPROC ---
Cardiac Cath Procedure Note Date of procedure:: 05/06/23 Performing physician:: Valdo Layne MD Indication:: coronary artery disease with previous bypass grafting non-STEMI Brief clinical history:: this is a 52-year-old man with multivessel coronary disease who underwent bypass grafting in 2019 at another hospital. He entered the hospital with some chest pain that is atypical of angina and other chest pain that is more consistent with ischemia. There has been her very modest rise in troponin. Procedure Procedure performed:: Left ventriculogram coronary angiography left mammary graft angiography in Situ right mammary graft angiography saphenous vein graft angiography Sedation/Medication given:: fentanyl 75 mg Versed 3 mg case start time 10:54 a.m. case end time 11:33 a.m. sedation provided by Capo Jernigan RN, trained observer Access site:: right femoral artery Estimated blood loss:: 30 cc Procedure note:: patient was brought to the cardiac catheterization lab in the postabsorptive state the right femoral triangle was prepared and draped in the usual fashion. Anesthesia was given over long% lidocaine infiltrated locally. Using the modified Seldinger technique a 5 [place] sheath was placed in the right femoral artery after this left heart catheterization was carried out. I used a 5 [place] angled pigtail catheter to measure left-sided hemodynamics and to inject LV g in the MEJIA projection. Following this I used a 5 [place] FL4 catheter to engage and inject the left coronary artery in multiple projections and then a 5 [place] JR4 catheter to engage and inject the right coronary artery as well as both saphenous vein grafts. The in Situ LUIS graft was engaged and injected using an IM catheter. The same catheter was used to engage and inject the PENA graft. The cineangiograms were then reviewed and the case was terminated an angiogram was done of the femoral artery through the sheath after which a 6 [place] Angio-Seal device was deployed at the puncture site. Despite deploying the Angio-Seal there was still not good hemostasis and so direct manual compression is being held following the procedure. There is no evidence of groin hematoma. While pressure was being held the patient developed some nausea for which she was given IV Zofran. Findings:: hemodynamics: The central aortic pressure is 122 over 76 left ventricle 122 over 6 end-diastolic pressure 16 there is no gradient on pullback across the aortic valve. Left ventricle: The left ventricle is normal in size all segments contract very well the global ejection fraction is 65% by visual estimation. The left main coronary artery is nicely patent the left anterior descending is a moderate caliber artery giving rise to a septal perforating branch and a small proximal diagonal after which the LAD itself is totally occluded. The circumflex artery gives rise to a medium-sized ramus intermedius branch then a true 1st OM branch is totally occluded. The trunk of the circumflex and has severe diffuse disease and gives rise then to a distal fairly large-sized OM 3. The trunk of a vein graft can be seen back filling from the circumflex vessels on antegrade injection. The right coronary artery is moderate caliber somewhat tortuous proximally and dominant to the posterior circulation. The right coronary gives rise to what appears to be a bifurcating RPDA 1 limb of which is totally occluded and the other limb of which is mildly diffusely disease. There are then 2 posterolateral branches the last of which is a moderate to large size artery that has a long area of tubular diffuse disease of 80-90%. Selective injection of the saphenous vein graft to the circumflex shows it to be a large caliber segment of vein is anastomosis to the ramus branch and to the large distal circumflex branch are patent and provides good flow into these vessels. Selective injection
[2023-05-06] MEDS: SODIUM CHLORIDE 0.9% IV 1,000 ML 125 ML IV CONT (12:55)
[2023-05-06] MEDS: HYDROcodone/acetaminophen (*CRX) 5-325 MG TABLET 1 TAB PO ×2 (12:55→20:52)
[2023-05-06 13:27] LABS: Mycoplasma IgM Antibody Titer 117 U/mL (<770)
[2023-05-06 13:59] LABS: Glucose Point of Care 233 mg/dl (65-105)
[2023-05-06] MEDS: INSULIN ASPART (*BKC) 100 UNITS/ML 7 UNITS SUB-Q (14:11)
[2023-05-06] MEDS: INSULIN ASPART (*BKC) 100 UNITS/ML SUB-Q (14:12)
[2023-05-06] MEDS: GABAPENTIN 400 MG CAPSULE PO ×2 (17:43→20:40)
[2023-05-06] MEDS: FLUoxetine HCL 20 MG CAPSULE 40 MG PO (17:44)
[2023-05-06] MEDS: SODIUM CHLORIDE 500 MG TABLET 1000 MG PO (17:44)
[2023-05-06] MEDS: AZITHROMYCIN 250 MG TABLET PO (17:45)
[2023-05-06] MEDS: EMPAGLIFLOZIN 25 MG TABLET PO (17:45)
[2023-05-06] MEDS: ACETAMINOPHEN 325 MG TABLET 650 MG PO (17:45)
[2023-05-06 18:47] LABS: Glucose Point of Care 173 mg/dl (65-105)
[2023-05-06 19:53] LABS: Glucose Point of Care 196 mg/dl (65-105)
[2023-05-06] MEDS: INSULIN GLARGINE (*BKC) 100 UNITS/ML 20 UNITS SUB-Q (20:41)
[2023-05-06] MEDS: guaiFENesin/DEXTROMETHORPHAN 10 ML UDC PO (20:52)
[2023-05-06 22:35] LABS: Pneumococcal Antigen Urine Not Detected (Not Detected)
[2023-05-07] VITALS (10 sets, daily range): BP systolic 117–132; BP diastolic 68–80; PULSE 63–77; RESP 16–22; TEMP 36.1–36.6; O2SAT 91–98
[2023-05-07] MEDS: ALBUTEROL SULFATE NEB 2.5 MG/3 ML INH INHALATION ×3 (02:40→13:05)
[2023-05-07] MEDS: IPRATROPIUM BR 0.02% INH SOLN 0.5 MG/2.5 ML VIAL INHALATION ×3 (02:45→13:05)
[2023-05-07 08:15] LABS: Glucose Point of Care 197 mg/dl (65-105)
[2023-05-07] MEDS: INSULIN ASPART (*BKC) 100 UNITS/ML 7 UNITS SUB-Q ×3 (08:50→16:45)
[2023-05-07] MEDS: SODIUM CHLORIDE 500 MG TABLET 1000 MG PO ×3 (08:51→16:44)
[2023-05-07] MEDS: ISOSORBIDE MONONITRATE 30 MG TAB.ER.24H PO (08:51)
[2023-05-07] MEDS: ASPIRIN 81 MG ENTERIC TABLET PO (08:52)
[2023-05-07] MEDS: GABAPENTIN 400 MG CAPSULE PO ×3 (08:52→16:43)
[2023-05-07] MEDS: AZITHROMYCIN 250 MG TABLET PO (08:52)
[2023-05-07] MEDS: LOSARTAN POTASSIUM 50 MG TABLET PO (08:53)
[2023-05-07] MEDS: METOPROLOL SUCCINATE EXT REL 100 MG TABCR PO (08:53)
[2023-05-07] MEDS: ATORVASTATIN 40 MG TABLET 80 MG PO (08:53)
[2023-05-07] MEDS: hydroCHLOROthiazide 25 MG TABLET PO (08:54)
[2023-05-07] MEDS: EMPAGLIFLOZIN 25 MG TABLET PO (08:58)
[2023-05-07] MEDS: FLUoxetine HCL 20 MG CAPSULE 40 MG PO (08:58)
--- NOTE | 2023-05-07 12:07 | PM.PNCARD ---
Progress Note: A&P Assessment and Plan (1) Non-ST elevated myocardial infarction (non-STEMI): Code(s): I21.4 - Non-ST elevation (NSTEMI) myocardial infarction Status: Acute Assessment and Plan: Patient presents with concerning chest pressure described as an elephant sitting on his chest as well as some atypical features, constant over past several days but worse with exertion as well and mild troponin elevation with concerning trend. Nonetheless with a prior known history of 5 vessel bypass 2019 and multiple risk factors including diabetes mellitus, hypertension, hyperlipidemia with elevated troponin concerning for NSTEMI.? Agree with anticoagulation with heparin infusion for now.? Continue aspirin 81 mg daily for antiplatelet therapy.? Continue atorvastatin 80 mg bedtime, Toprol XL 100mg daily.? Underwent LHC yesterday which revealed: 1. Severe multivessel coronary artery disease involving occlusion of the mid LAD as well as high-grade stenosis of the ramus intermedius branch and 1st OM circumflex branch as well as of the mid trunk of the circumflex. The bifurcating RPDA appears to have 1 limb which is occluded and there is high-grade stenosis in the largest distal RPL branch as well. 2. Patent PENA to the LAD 3. patent saphenous vein graft to the diagonal 4. patent sequential vein graft to the ramus and OM 3 5. in Situ LUIS graft which was anastomosed to the RPDA there is no meaningful flow in this graft and it has developed the so-called string sign. Was likely graft to the occluded portion of the PDA as there is no competitive filling in the distal RCA angiograms. - ASA 81mg once daily. - High-intensity statin with atorvastatin 80 mg daily - Continue Toprol 100 mg daily for BP control and antianginal therapy. -continue antianginal therapy with Imdur 30mg QD. -EF preserved by echocardiogram although technically difficult study EF approximately 60% with moderate concentric left ventricular hypertrophy. Echocardiogram reviewed. (2) Hypertension associated with diabetes: Code(s): E11.59 - Type 2 diabetes mellitus with other circulatory complications; I15.2 - Hypertension secondary to endocrine disorders Status: Acute Assessment and Plan: Patient hypertensive at presentation much better controlled after addition of Imdur 30 mg daily and continuation of Losartan 25mg QD, HCTZ 25mg QD, and Toprol XL 100mg QD. Will hold off on increasing losartan to avoid symptomatic hypotension. (3) Upper respiratory infection: Code(s): J06.9 - Acute upper respiratory infection, unspecified Status: Acute Assessment and Plan: Patient presents with symptoms suggestive of URI with ongoing cough despite azithromycin and prednisone.? However, while there may be a component of musculoskeletal chest pain due to frequent coughing troponin elevation concerning for NSTEMI as a separate process of the chest x-ray suggests possible atelectasis versus pneumonia bronchodilator therapy per hospitalist service with albuterol.? Remains on prednisone.? Need for antibiotics per primary service. Further management including need for antibiotics per primary service. He remains on azithromycin orally. (4) Mixed diabetic hyperlipidemia associated with type 2 diabetes mellitus: Code(s): E11.69 - Type 2 diabetes mellitus with other specified complication; E78.2 - Mixed hyperlipidemia Status: Acute Assessment and Plan: Continue atorvastatin 80 mg bedtime.? Check lipid panel.? Goal LDL less than 70.? Further adjustments as appropriate. (5) DANITA (obstructive sleep apnea): Code(s): G47.33 - Obstructive sleep apnea (adult) (pediatric) Status: Acute Assessment and Plan: Patient has yet to receive CPAP at home but states it was due this week.? He states he is not tolerating CPAP well at 16 cm water. (6) Diabetes mellitus: Qualifiers: Diabetes mellitus complication status: wit
[2023-05-07] MEDS: ACETAMINOPHEN 325 MG TABLET 650 MG PO (12:24)
--- NOTE | 2023-05-07 12:43 | PM.DS ---
DS: Admitting Diagnosis Discharge Date today Admitting Diagnosis (1) Non-ST elevated myocardial infarction: ?Code(s): I21.4 - Non-ST elevation (NSTEMI) myocardial infarction ?Status:?Acute (2) Type 2 diabetes mellitus with hyperglycemia: ?Code(s): E11.65 - Type 2 diabetes mellitus with hyperglycemia ?Status:?Acute (3) Upper respiratory infection: ?Code(s): J06.9 - Acute upper respiratory infection, unspecified ?Status:?Acute (4) Abnormal chest x-ray: ?Code(s): R93.89 - Abnormal findings on diagnostic imaging of other specified body structures ?Status:?Acute (5) Coronary artery disease: ?Code(s): I25.10 - Atherosclerotic heart disease of [place] coronary artery without angina pectoris ?Status:?Acute (6) Asthma: ?Code(s): J45.909 - Unspecified asthma, uncomplicated ?Status:?Acute (7) Hypertension associated with diabetes: ?Code(s): E11.59 - Type 2 diabetes mellitus with other circulatory complications; I15.2 - Hypertension secondary to endocrine disorders ?Status:?Acute (8) Uncontrolled hypertension: ?Code(s): I10 - Essential (primary) hypertension ?Status:?Acute DS: Discharge Diagnosis Discharge Diagnosis (1) Non-ST elevated myocardial infarction: Code(s): I21.4 - Non-ST elevation (NSTEMI) myocardial infarction Status: Acute (2) Type 2 diabetes mellitus with hyperglycemia: Code(s): E11.65 - Type 2 diabetes mellitus with hyperglycemia Status: Acute (3) Upper respiratory infection: Code(s): J06.9 - Acute upper respiratory infection, unspecified Status: Acute (4) Abnormal chest x-ray: Code(s): R93.89 - Abnormal findings on diagnostic imaging of other specified body structures Status: Acute (5) Coronary artery disease: Code(s): I25.10 - Atherosclerotic heart disease of [place] coronary artery without angina pectoris Status: Acute (6) Asthma: Code(s): J45.909 - Unspecified asthma, uncomplicated Status: Acute (7) Hypertension associated with diabetes: Code(s): E11.59 - Type 2 diabetes mellitus with other circulatory complications; I15.2 - Hypertension secondary to endocrine disorders Status: Acute (8) Uncontrolled hypertension: Code(s): I10 - Essential (primary) hypertension Status: Acute DS: Summary Hospital Course Hospital Course: Per H&P, this is a very pleasant 52-year-old male with coronary artery disease status post 5 vessel bypass in 2019, hypertension, hyperlipidemia, type 2 diabetes mellitus, and asthma who presented to the emergency department via private vehicle from home for evaluation of chest pain. The patient provides the following history. He normally has a dry cough but last week it became productive of yellowish-brown sputum. He was seen in urgent care at which time he was prescribed a Z-Ronald for an upper respiratory infection; he tested negative for COVID at that time. He continues to have cough however his phlegm is now clear. The last several days he has started wheezing which has not improved with his rescue inhaler. He is now having nonradiating, diffuse anterior chest pressure. On occasion he has palpitations and sensations of racing heart as well. He has been sweating more than normal and has had some nausea and lightheadedness. Some family members have had similar URI symptoms as well. He reports increasing stress recently. He denies fever, chills, pleuritic pain, orthopnea, paroxysmal nocturnal dyspnea, vomiting, and calf pain. In the ED: He was afebrile on arrival. Blood pressure has been as high as 190/106. Labs were significant for WBC count 10.5, hemoglobin 12.4, sodium 131, potassium 4.2, creatinine 1.00, glucose 424, 0.095. EKG showed a sinus rhythm with left axis deviation no acute ST segment elevations or depressions. He was given aspirin 324 mg and has been started on heparin drip and is being admitted in this setting for close
[2023-05-07 16:27] LABS: Glucose Point of Care 186 mg/dl (65-105)
[2023-05-07 16:27] LABS: Glucose Point of Care 200 mg/dl (65-105)
[2023-05-09 11:36] LABS: Legionella pneumophila Ag Ur Not Detected (Not Detected)
== END 2023-05-07 17:20 | disposition home or self-care (01) | DRG 280 ==
LOC: ANHED 10:05 → ANHIMU 16:33
PROVIDERS: Internal Medicine; Internal Medicine Cardiovascular Disease; Physician Assistant; Specialist; Admitting Provider Student in an Organized Health Care Education/Training Program; Emergency Provider Emergency Medicine; PCP Family Medicine; Visit Provider Hospitalist
PROC: 4A023N7 Measurement of Cardiac Sampling and Pressure, Left Heart, Percutaneous Approach (ICD-10-PCS; CPT 93459; principal; 2023-05-06 10:30)
PROC: 4A023N7 Measurement of Cardiac Sampling and Pressure, Left Heart, Percutaneous Approach (ICD-10-PCS; 2023-05-06 10:30)
DX: I21.4 Non-ST elevation (NSTEMI) myocardial infarction (principal); J18.9 Pneumonia, unspecified organism; I25.810 Atherosclerosis of coronary artery bypass graft(s) without angina pectoris; Z68.41 Body mass index [BMI] 40.0-44.9, adult; I25.10 Atherosclerotic heart disease of native coronary artery without angina pectoris; I10 Essential (primary) hypertension; I16.0 Hypertensive urgency; E11.65 Type 2 diabetes mellitus with hyperglycemia; E78.2 Mixed hyperlipidemia; E66.01 Morbid (severe) obesity due to excess calories; E11.42 Type 2 diabetes mellitus with diabetic polyneuropathy; E11.69 Type 2 diabetes mellitus with other specified complication; G47.33 Obstructive sleep apnea (adult) (pediatric); J45.909 Unspecified asthma, uncomplicated; J06.9 Acute upper respiratory infection, unspecified; Z20.822 Contact with and (suspected) exposure to COVID-19; Z95.1 Presence of aortocoronary bypass graft; Z79.84 Long term (current) use of oral hypoglycemic drugs
CPT/HCPCS: 36415; 71046; 80048; 80053; 80061; 82607; 82728; 82746; 82948; 83036; 83540; 83550; 83690; 83735; 84443; 84484; 85025; 85027; 85610; 85730; 86738; 87040; 87449; 87636; 87899; 93005; 93459; 93970; 94640; 99285; A9270; C1760; C1769; C1887; C1894; C8929; G0269; J0696; J1644; J1815; J2250; J2371; J2405; J3010; J7030; J7040; Q9957

== ENCOUNTER 2024-08-29 13:21 | Emergency (ER) | payer BC, SELFPAY ==
--- NOTE | ~2024-08-29 | XR_ITS ---
EXAM: XR elbow LT min 3V DATE: 08/29/2024 14:26 HISTORY: POSTERIOR PAIN AFTER BUMPING ON TABLE HX OF GOUT . COMPARISON: None available. FINDINGS: Normal mineralization. No fracture or dislocation. No lytic or blastic lesion. Joint space s are maintained. Olecranon enthesopathy. No erosion or periosteal change. Focal soft tissue swelling over the olecranon. Anterior displacement of the anterior fat pad. IMPRESSION: Focal soft tissue swelling over the olecranon, as can be seen with olecranon bursitis. El bow joint effusion, which can herald the presence of an occult fracture, likely radial head in a socrates ent of this age. Reviewed, dictated and finalized at location K. VISION MAINTENANCE WORKER IMPRESSION: Focal soft tissue swelling over the olecranon, as can be seen with olecranon bursitis. Elbow joint effusion, which can herald the presence of an o ccult fracture, likely radial head in a patient of this age.
[2024-08-29 13:25] VITALS: BP 177/92; PULSE 103; RESP 20; TEMP 36.6; O2SAT 98
--- NOTE | 2024-08-29 14:15 | ED_ITS ---
HPI - Extremity Problem General Chief complaint: Extremity Problem,Nontraumatic <Katarina Pleitez PA-C - Last Filed: 08/30/24 12:13> Stated complaint: L elbow pain <Katarina Pleitez PA-C - Last Filed: 08/30/24 12:13> Time Seen by Provider: 08/29/24 14:15 <Katarnia Pleitez PA-C - Last Filed: 08/30/24 12:13> Focused HPI: This is a 54 year old male that presents to the ER for left elbow pain. Reports history of tennis elbow. He couldn't sleep due to discomfort which prompted him to be seen. He was seen at urgent care and prompted to be seen in the ER for a possible infection in his elbow. Reports redness and swelling. This started a couple days ago. Reports he has had fevers. He does report history of gout GENERAL: Well-appearing, well-nourished, and in no acute distress. HEAD: Normocephalic, atraumatic. CHEST: Clear to auscultation. ?No respiratory distress. HEART: Regular rate and rhythm.? NEURO: ?Alert and oriented x3. EXTREMITY: Left olecranon bursa is swollen, tender to touch. Mildly decreased ROM. Normal radial pulse Patient screened in triage and initial orders placed.? ?Additional care and disposition to be based upon?diagnostic testing and treatment. <Katarina Pleitez PA-C - Last Filed: 08/30/24 12:13> History of Present Illness HPI Narrative: Agree with the HPI above <Angel Lewis MD - Last Filed: 08/29/24 17:40> Related Data Home medications: Home Medications ?Medication ?Instructions ?Recorded ?Confirmed ?Last Taken ?Type metformin 1,000 mg tablet 1,000 mg PO BID 05/27/22 05/03/23 Unknown History atorvastatin 80 mg tablet 80 mg PO DAILY 05/03/23 05/03/23 05/02/23 History empagliflozin 25 mg tablet 25 mg PO DAILY 05/03/23 05/03/23 Unknown History (Jardiance) fluoxetine 20 mg capsule 40 mg PO DAILY 05/03/23 05/03/23 05/01/23 History gabapentin 400 mg capsule 400 mg PO QID 05/03/23 05/03/23 05/02/23 History hydrochlorothiazide 25 mg tablet 25 mg PO DAILY 05/03/23 05/03/23 05/02/23 History metoprolol succinate 100 mg 100 mg PO DAILY 05/03/23 05/03/23 Unknown History tablet,extended release 24 hr <Katarina Pleitez PA-C - Last Filed: 08/30/24 12:13> Allergies/Adverse reactions: Allergies Allergy/AdvReac Type Severity Reaction Status Date / Time morphine Allergy Itching Verified 08/29/24 13:28 <Katarina Pleitez PA-C - Last Filed: 08/30/24 12:13> Review of Systems 2 Review of Systems: As reviewed above in HPI <Angel Lewis MD - Last Filed: 08/29/24 17:40> [facility] Past Medical History Medical History: Medical History DANITA (obstructive sleep apnea) History of rhabdomyolysis Peripheral neuropathy Asthma Type 2 diabetes mellitus Coronary artery disease Morbid obesity with BMI of 40.0-44.9, adult Mixed diabetic hyperlipidemia associated with type 2 diabetes mellitus Hypertension associated with diabetes <Katarina Pleitez PA-C - Last Filed: 08/30/24 12:13> Surgical History Surgical History: Surgical History History of five vessel coronary artery bypass (2019) Done at [facility]. <Katarina Pleitez PA-C - Last Filed: 08/30/24 12:13> Family History Family History: Family History Other Coronary artery disease <Katarina Pleitez PA-C - Last Filed: 08/30/24 12:13> Social History Social History: Social History Social History: Surrogate medical decision maker: yoli Dumont. Code status: Full code. Smoking status: Never smoker Alcohol intake: current Alcohol use details: History of heavier alcohol use. Occasional binges. Substance use: never Lack of Transportation: No Lack of Food: Never True Current Housing: I Have Housing Concerned About Future Housing: No Difficulty Paying Gas/Electric Bills: No Difficulty Paying for Meds: No Currently Unemployed: No Education: High School Diploma/GED Difficulty w/ Childcare or Family Care: No Additional living arrangements comments: Lives with severino and several of her family members have moved into their home as well. Additional occupation/education comments: Software. Spiritual care concerns: No <Katarina Pleitez PA-C - Last Filed: 08/30/24 12:13> Exam 2 Narrative: GENERAL: [Well-appearing, well-nourished, and in no acute distress.] HEAD: [Normocephalic, atraumatic.] EYES: [PERRLA and EOMI.] ENT: Nares clear, no rhinorrhea or epistaxis. Mucous membranes moist. NECK: Supple. CHEST: [Clear to auscultation. No respiratory distress.] HEART: [Regular rate and rhythm]. No murmur heard. [Normal peripheral pulses.] ABDOMEN: [Soft, nondistended], [nontender], [No rigidity or guarding] EXTREMITIES: The left upper extremity has a swollen tender bursa without any overlying skin changes or redness. Very mildly decreased range of motion but full passive range of motion with flexion and extension. There is some warmth overlying the bursa but no deformities, step-offs, overlying skin ulcerations or any drainage. No swelling or warmth proximally at either the shoulder or wrist joint. No other appreciable joint swelling in the bilateral upper extremities or bilateral lower extremities. SKIN: Warm, dry, no rash. NEURO: [No focal deficits]. Alert and oriented [x3.] Full motor strength in both arms and legs, no sensory changes or deficits. PSYCH: [Normal mood and affect.] <Angel Lewis MD - Last Filed: 08/29/24 17:40> Course Vital Signs Vital signs: Vital Signs Temperature 97.8 F 08/29/24 13:25 Pulse Rate 103 H 08/29/24 13:25 Respiratory Rate 20 08/29/24 13:25 Blood Pressure 177/92 H 08/29/24 13:25 Pulse Oximetry 98 08/29/24 13:25 Oxygen Delivery Room Air 08/29/24 13:25 Temperature 97.8 F 08/29/24 13:25 Pulse Rate 103 H 08/29/24 13:25 Respiratory Rate 20 08/29/24 13:25 Blood Pressure 177/92 H 08/29/24 13:25 Pulse Oximetry 98 08/29/24 13:25 Oxygen Delivery Room Air 08/29/24 13:25 <Katarina Pleitez PA-C - Last Filed: 08/30/24 12:13> Vital Signs Temperature 97.8 F 08/29/24 13:25 Pulse Rate 103 H 08/29/24 13:25 Respiratory Rate 20 08/29/24 13:25 Blood Pressure 177/92 H 08/29/24 13:25 Pulse Oximetry 98 08/29/24 13:25 Oxygen Delivery Room Air 08/29/24 13:25 Temperature 97.8 F 08/29/24 13:25 Pulse Rate 103 H 08/29/24 13:25 Respiratory Rate 20 08/29/24 13:25 Blood Pressure 177/92 H 08/29/24 13:25 Pulse Oximetry 98 08/29/24 13:25 Oxygen Delivery Room Air 08/29/24 13:25 <Angel Lewis MD - Last Filed: 08/29/24 17:40> Procedures Other Procedure Procedure 1: Other Procedure: Bedside ultrasound: Soft tissue Indication: Soft tissue swelling of the left olecranon bursa with concern for potential inflammatory versus septic bursitis Linear probe a transducer was used for visualization of the olecranon process. No identifiable free fluid collections or any fluid in the bursa or joint space that would be warranting or amenable to aspiration. Cobblestoning of the overlying soft tissues external to the joint space consistent with patient's swelling and warmth in this area likely septic bursitis versus inflammatory bursitis. <Angel Lewis MD - Last Filed: 08/29/24 17:40> MDM - Extremity (Nontraumatic) MDM Narrative Medical decision making narrative: 54-year-old male presenting for left-sided elbow pain. Patient has a history of gout according to himself which is diet controlled but previously was on colchicine. He states that he did bump it on a table several weeks ago but did not notice any injury or pain at that time. His left elbow is warm and does have some swelling at the bursa but he has good passive range of motion and only mildly decreased active range of motion with flexion. No other joints are swollen or inflamed. No overlying skin changes such as purulence, ulceration, cellulitis. Is tender to palpation. Blood pressure slightly elevated 177/92 Na is slightly tachycardic with a pulse of 103 but is afebrile and overall well- appearing. States it feels somewhat similar to his previous gout but also his gout usually presents in his feet and he has never had anything his upper extremities. Given the swollen extremity we did order x-ray of the left elbow and got laboratory studies including uric acid, CRP, ESR in basic laboratories. He was treated with Toradol and fluid bolus thus far. Workup did reveal any slight leukocytosis of 14.5, no significant anemia or platelet concerns. Electrolyte panel within normal limits, slightly hyperglycemic 181 but otherwise normal renal and hepatic function panel. Uric acid is elevated 9.6 as well as the CRP at 3.8. ESR slightly elevated 44. Elbow x-ray was independent reviewed by myself and interpreted by radiology. There is focal swelling over the olecranon seen in olecranon bursitis. Small elbow joint effusion but no clinically identifiable fractures or dislocations. No significant trauma to suspect fracture. Given the elevated inflammatory markers and knee soft tissue swelling I elected to do a bedside ultrasound of the joint to see if there is any fluid collections or anything that would warrant an aspiration see if there is any infectious process. Ultrasound was conducted by myself at bedside which does show cobblestoning over the soft tissues of the olecranon process and bursa but the bursa itself does not have any fluid collections and there is no joint space fluid or fluid pockets that would be amenable to any kind of drainage. Overall appears like with the cobblestoning of the soft tissues without without any drainable fluid collections and we can treat him empirically for septic bursitis at this time with a dose of clindamycin IV and sent him home with a oral course of clindamycin and have him follow-up with Orthopedic surgery. I discussed this with the patient at bedside and he was agreeable to plan of care. I also discussed that he does need to have an outpatient orthopedic evaluation on a short-term basis and he informs me that he actually has an orthopedic appointment for his hip in the upcoming few days. I told them to also bring up the elbow so they can have a repeat evaluation at that time. They also got strict return precautions including any decreased range of motion, development of fevers, worsening pain or swelling or any other concerning symptoms and they should seek repeat evaluation at that time. Patient and family verbalized understanding of these instructions and was stable for discharge home at this time with oral antibiotics and anti-inflammatory medicines. Will hold off on sending him home with oral steroids for treatment of olecranon bursitis in favor of treatment for septic bursitis at this time. < Angel Lewis MD - Last Filed: 08/29/24 17:40> Lab Data Result diagrams: 08/29/24 14:39 08/29/24 14:39 <Katarina Pleitez PA-C - Last Filed: 08/30/24 12:13> Labs: Lab Results 08/29/24 Range/Units 14:39 WBC 14.5 H (4.5-10.0) K/mm3 RBC 5.15 (4.6-6.20) M/mm3 Hgb 12.2 L (14.0-18.0) g/dL Hct 39.0 L (42.0-52.0) % MCV 75.7 L (80-100) fl MCH 23.7 L (26-34) pg MCHC 31.3 L (32-36) g/dl RDW 17.1 H (11.5-14.5) % Plt Count 373 (150-375) k/mm3 MPV 9.3 (7.4-10.4) fl Immature Gran % (Auto) 0.4 (0-0.5) % Neut % (Auto) 78.8 H (45.5-73.1) % Lymph % (Auto) 12.7 L (18.3-44.2) % [place] % (Auto) 6.0 (2.6-8.5) % Eos % (Auto) 1.6 (0-4.4) % Baso % (Auto) 0.5 (0.2-1.2) % Lymph # (Auto) 1.85 (0.9-3.2) K/mm3 [place] # (Auto) 0.9 H (0.1-0.6) K/mm3 Eos # (Auto) 0.2 (0-0.3) K/mm3 Baso # (Auto) 0.1 (0.0-0.1) K/mm3 Abs Immat Gran (auto) 0.06 H (0.00-0.031) K/mm3 Absolute Neuts (auto) 11.5 H (1.3-6.7) K/mm3 Absolute Nucleated RBC 0.000 (0.0-0.012) K/mm3 Nucleated RBC % 0.0 (0.0-0.2) % ESR 44 H (0-20) mm/hr Sodium 137 (137-145) mmol/L Potassium 4.1 (3.4-5.0) mmol/L Chloride 101 (98-107) mmol/L Carbon Dioxide 29 (22-30) mmol/L Anion Gap 7 (4-12) mmol/L BUN 10 D (9-20) mg/dL Creatinine 0.80 (0.7-1.3) mg/dL Estim Creat Clear Calc 125 ml/min Estimated GFR > 60 (59 - ) Glucose 181 H (65-110) mg/dL Uric Acid 9.6 H (3.5-8.5) mg/dL Calcium 9.7 (8.4-10.2) mg/dL Total Bilirubin 0.8 (0.2-1.3) mg/dL AST 46 (17-59) U/L ALT 20 (6-50) U/L Alkaline Phosphatase 92 (38-126) U/L C-Reactive Protein 3.8 H (<1.0) mg/dL Total Protein 8.0 (6.3-8.2) g/dL Albumin 4.2 (3.5-5.1) g/dL <Katarina Pleitez PA-C - Last Filed: 08/30/24 12:13> Lab Results 08/29/24 Range/Units 14:39 WBC 14.5 H (4.5-10.0) K/mm3 RBC 5.15 (4.6-6.20) M/mm3 Hgb 12.2 L (14.0-18.0) g/dL Hct 39.0 L (42.0-52.0) % MCV 75.7 L (80-100) fl MCH 23.7 L (26-34) pg MCHC 31.3 L (32-36) g/dl RDW 17.1 H (11.5-14.5) % Plt Count 373 (150-375) k/mm3 MPV 9.3 (7.4-10.4) fl Immature Gran % (Auto) 0.4 (0-0.5) % Neut % (Auto) 78.8 H (45.5-73.1) % Lymph % (Auto) 12.7 L (18.3-44.2) % [place] % (Auto) 6.0 (2.6-8.5) % Eos % (Auto) 1.6 (0-4.4) % Baso % (Auto) 0.5 (0.2-1.2) % Lymph # (Auto) 1.85 (0.9-3.2) K/mm3 [place] # (Auto) 0.9 H (0.1-0.6) K/mm3 Eos # (Auto) 0.2 (0-0.3) K/mm3 Baso # (Auto) 0.1 (0.0-0.1) K/mm3 Abs Immat Gran (auto) 0.06 H (0.00-0.031) K/mm3 Absolute Neuts (auto) 11.5 H (1.3-6.7) K/mm3 Absolute Nucleated RBC 0.000 (0.0-0.012) K/mm3 Nucleated RBC % 0.0 (0.0-0.2) % ESR 44 H (0-20) mm/hr Sodium 137 (137-145) mmol/L Potassium 4.1 (3.4-5.0) mmol/L Chloride 101 (98-107) mmol/L Carbon Dioxide 29 (22-30) mmol/L Anion Gap 7 (4-12) mmol/L BUN 10 D (9-20) mg/dL Creatinine 0.80 (0.7-1.3) mg/dL Estim Creat Clear Calc 125 ml/min Estimated GFR > 60 (59 - ) Glucose 181 H (65-110) mg/dL Uric Acid 9.6 H (3.5-8.5) mg/dL Calcium 9.7 (8.4-10.2) mg/dL Total Bilirubin 0.8 (0.2-1.3) mg/dL AST 46 (17-59) U/L ALT 20 (6-50) U/L Alkaline Phosphatase 92 (38-126) U/L C-Reactive Protein 3.8 H (<1.0) mg/dL Total Protein 8.0 (6.3-8.2) g/dL Albumin 4.2 (3.5-5.1) g/dL <Angel Lewis MD - Last Filed: 08/29/24 17:40> Imaging Data Radiologist's impression: ITS Impressions Elbow X-Ray 08/29/24 14:28 IMPRESSION: Focal soft tissue swelling over the olecranon, as can be seen with olecranon bursitis. Elbow joint effusion, which can herald the presence of an occult fracture, likely radial head in a patient of this age. <Katarina Pleitez PA-C - Last Filed: 08/30/24 12:13> Critical Care Time Critical Care Time Critical Care Time: No <Katarina Pleitez PA-C - Last Filed: 08/30/24 12:13> Discharge Plan Discharge Clinical Impression: Septic bursitis of elbow Qualifiers: Laterality: left Qualified Code(s): M71.122 - Other infective bursitis, left elbow <Katarina Pleitez PA-C - Last Filed: 08/30/24 12:13> Patient Disposition: Home, Self-Care <Katarina Pleitez PA-C - Last Filed: 08/30/24 12:13> Condition: Stable <Katarina Pleitez PA-C - Last Filed: 08/30/24 12:13> Instructions: Antibiotic Form, Elbow Bursitis (ED) <Katarina Pleitez PA-C - Last Filed: 08/30/24 12:13> Additional Instructions: Your workup today including your ultrasound of the left upper extremity shows cobblestoning and inflammatory markers consistent with a bursa inflammation or infection. No joint space involvement. Will treat you with antibiotics and strong anti-inflammatory medications and have a follow-up with Orthopedic surgery. If you develop any fevers, worsening mobility or worsening pain or swelling please return to the emergency department. <Katarina Pleitez PA-C - Last Filed: 08/30/24 12:13> Patient Language: French <Katarina Pleitez PA-C - Last Filed: 08/30/24 12:13> Prescriptions: New clindamycin HCl 300 mg capsule 300 mg PO TID 14 Days Qty: 42 0RF naproxen [Naprosyn] 500 mg tablet 500 mg PO BID PRN (Reason: pain) Qty: 30 0RF No Action metformin 1,000 mg Tablet 1,000 mg PO BID albuterol sulfate 90 mcg/actuation HFA aerosol inhaler 2 puff INHALATION QID PRN (Reason: shortness of breath or wheezing) Qty: 8.5 0RF atorvastatin 80 mg tablet 80 mg PO DAILY gabapentin 400 mg Capsule 400 mg PO QID hydrochlorothiazide 25 mg tablet 25 mg PO DAILY fluoxetine 20 mg capsule 40 mg PO DAILY Jardiance 25 mg tablet 25 mg PO DAILY metoprolol succinate 100 mg tablet extended release 24 hr 100 mg PO DAILY losartan [Cozaar] 50 mg Tablet 50 mg PO DAILY Qty: 30 0RF isosorbide mononitrate 30 mg Tablet Extended Release 24 Hr 30 mg PO QAM Qty: 30 0RF aspirin 81 mg Tablet,Delayed Release (Dr/Ec) 81 mg PO QAM Qty: 30 0RF amoxicillin-pot clavulanate [Augmentin] 500-125 mg tablet 1 tablet PO Q12H Qty: 20 0RF <Katarina Pleitez PA-C - Last Filed: 08/30/24 12:13> Follow-up/Referrals: Belmont,Gabo Diaz MD [Primary Care Provider] - <Katarina Pleitez PA-C - Last Filed: 08/30/24 12:13> Time of Disposition: 17:39 <Katarina Pleitez PA-C - Last Filed: 08/30/24 12:13> 17:39 <Angel Lewis MD - Last Filed: 08/29/24 17:40>
[2024-08-29 14:44] LABS: Basophils Absolute Auto 0.1 K/mm3 (0.0-0.1); Basophils Percent Auto 0.5 % (0.2-1.2); Eosinophils Absolute Auto 0.2 K/mm3 (0-0.3); Eosinophils Percent Auto 1.6 % (0-4.4); Hemoglobin 12.2 g/dL (14.0-18.0); Immature Granulocyte Absolute 0.06 K/mm3 (0.00-0.031); Immature Granulocyte Percent A 0.4 % (0-0.5); Lymphocytes Absolute Auto 1.85 K/mm3 (0.9-3.2); Lymphocytes Percent Auto 12.7 % (18.3-44.2); Mean Corpuscular HGB Conc 31.3 g/dl (32-36); Mean Corpuscular Hemoglobin 23.7 pg (26-34); Mean Corpuscular Volume 75.7 fl (80-100); Mean Platelet Volume 9.3 fl (7.4-10.4); Monocytes Absolute Auto 0.9 K/mm3 (0.1-0.6); Neutrophils Absolute Auto 11.5 K/mm3 (1.3-6.7); Neutrophils Percent Auto 78.8 % (45.5-73.1); Platelet Count Result 373 k/mm3 (150-375); Red Blood Count 5.15 M/mm3 (4.6-6.20); Red Cell Distribution Width 17.1 % (11.5-14.5); White Blood Count 14.5 K/mm3 (4.5-10.0)
[2024-08-29 14:57] LABS: Alanine Aminotransferase 20 U/L (6-50); Albumin Level 4.2 g/dL (3.5-5.1); Alkaline Phosphatase 92 U/L (38-126); Anion Gap 7 mmol/L (4-12); Aspartate Amino Transferase 46 U/L (17-59); Bilirubin,Total 0.8 mg/dL (0.2-1.3); Blood Urea Nitrogen 10 mg/dL (9-20); CRP 3.8 mg/dL (<1.0); Calcium 9.7 mg/dL (8.4-10.2); Carbon Dioxide 29 mmol/L (22-30); Chloride 101 mmol/L (98-107); Estimated CRCL calculation 125 ml/min; Estimated Glomerular Filt Rate > 60; Glucose 181 mg/dL (65-110); Potassium 4.1 mmol/L (3.4-5.0); Sodium 137 mmol/L (137-145); Uric Acid 9.6 mg/dL (3.5-8.5)
[2024-08-29 15:15] LABS: Erythrocyte Sedimentation Rate 44 mm/hr (0-20)
[2024-08-29] MEDS: LACTATED RINGERS 1,000 ML 999 ML IV CONT (16:34)
[2024-08-29] MEDS: KETOROLAC 30 MG/ML VIAL (*BKC) IV PUSH (16:34)
[2024-08-29] MEDS: CLINDAMYCIN 600 MG/D5W 50 ML 600 MG/50 ML PIGGYBACK 100 MG IVPB (17:02)
[2024-08-29] MEDS: predniSONE 40 MG, predniSONE 10 MG 50 MG PO (17:03)
== END 2024-08-29 18:02 | disposition home or self-care (01) ==
PROVIDERS: Physician Assistant; Emergency Provider Student in an Organized Health Care Education/Training Program; PCP Family Medicine
DX: M71.122 Other infective bursitis, left elbow (principal); G47.33 Obstructive sleep apnea (adult) (pediatric); I25.10 Atherosclerotic heart disease of native coronary artery without angina pectoris; J45.909 Unspecified asthma, uncomplicated; E66.01 Morbid (severe) obesity due to excess calories; Z68.38 Body mass index [BMI] 38.0-38.9, adult; I10 Essential (primary) hypertension; E11.42 Type 2 diabetes mellitus with diabetic polyneuropathy
CPT/HCPCS: 36415; 73080; 80053; 84550; 85025; 85652; 86140; 96361; 96365; 96375; 99284; J1885; J7120; J7512

== ENCOUNTER 2024-12-05 13:32 | Outpatient (CLI) | payer BC, SELFPAY ==
--- OUTSIDE RECORDS SUMMARY | 2024-12-05 15:12 | XMS_ITS | Encounter Summary ---
Author Organization [facility] Address [address] [place] [address] Care Team Providers Care Delimber Operator Name Role Phone Wil Almeida DO Primary Care Provider + Matty Ramirez MD Unavailable - [phone] Wil Almeida DO Unavailable [phone] Reason for Visit * Reason Onset Date Comments MEDICATION REFILL 08/28/2020 Encounter Details Date Type Department Care Team (Late st Contact Info) Description 08/28/2020 Refill [facility] - Internal Medicine [address] [address] Wil Almeida DO [address] [address] MEDICATION REFILL Social History Tobacco Use Types Packs/Day Years Used Date Smoking Tobacco: Never Smokeless Tobacco: Never Alcohol Use Standard Drinks/Week Comments Yes 0 (1 standard drink = 0.6 oz pur e alcohol) Sex and Gender Information Value Date Recorded Sex Assigned at Not on file Gender Identity Male 10/11/2019 2:26 PM PLAN COORDINATOR Sexual Orientation Not on file COVID-19 Exposure Response Date Recorded In the last month, have you been in contact with someone who was confirmed or suspected to have Coronavirus / COVID-19? No / Unsure 08/28/2020 4:19 PM PLAN COORDINATOR documented as of this encounter Miscellaneous Notes * Telephone Encounter - Cady Morrissey - 09/05/2020 10:30 AM CST My chart message sent to schedule appointment. COORDINATOR * Telephone Encounter - Corrina Josue RN - 08/30/2020 1:09 PM CST MEDICATION FILLED PER PROTOCOL Last Office Visit with PCP: 11/22/2019 Last Video Visit with PCP: Visit date not found Next Appointment with PCP: Visit date not found Follow-up: 6 weeks Disposition of prescription: e-prescribed to preferred pharmacy Scheduling Team: Please schedule patient for an appointment with Wil Varghese DO for chronic condition and medication management. Patient was due for 6 weeks follow up around 01/08/2020 for .check on new medication- amaryl COORDINATOR * Telephone Encounter - Agnieszka Luna - 08/28/2020 4:25 PM CST Simba Quijano is in need of His Requested Prescriptions Pending Prescriptions Disp Refills ??? albuterol HFA (PROVENTIL;VENTOLIN;PROAIR) 108 (90 Base) MCG/ACT inhaler 51 g 1 Sig: Inhale 2 puffs by mouth every 4 hours as needed Person calling for the refill: Patient Last office visit 11/22/2019 Next Appointment scheduled: 09/02/2020 Last Refill for this medication 03/28/2019 Does patient have any new allergies since last office visit? No Was the pharmacy verified? Yes If this is a controlled substance was the Last 4 of SSN verified? YES (If unable to verify last 4 of SSN transfer to the clinic for further review) COORDINATOR documented in this encounter Plan of Treatment Not on file documented as of this encounter Visit Diagnoses Not on filedocumented in this encounter Care Teams Delimber Operator Relationship Specialty Start Date End Date Wil Almeida DO [address] [facility] [address] [place] [address] PCP - General Family Medicine 03/24/19 Wil Almeida DO [address] [facility] [address] [place] [id number] PCP - Attributed-Joshua Commercial 06/20/20 02/05/21 Matty Ramirez MD [address] [place] [address] -[phone] (Work) Cardiovascular Disease 11/22/19 documented as of this encounter
--- OUTSIDE RECORDS SUMMARY | 2024-12-05 15:12 | XMS_ITS | Encounter Summary ---
Author Organization [facility] Address [address] [place] [address] Care Team Providers Care Financial Planning Assistant Name Role Phone Gabo Hawkins MD Primary Care Provider Ayush Sweet MD Unavailable [phone] Encounter Details Date Type Department Care Team (Late st Contact Info) Description 12/04/2024 Results Follow-Up [facility] Primary Care at [address] [address] Terri Alejo, TANK SHOP SUPERVISOR [address] [place] [address] [address] [place] [address] Social History Tobacco Use Types Packs/Day Years Used Date Smoking Tobacco: Never Cigarettes Passive Smoke Exposure: Never Smokeless Tobacco: Never AUDIT-C Answer Date Recorded Q1: How often do you have a drink containing alc ohol? 2-3 times a week 07/01/2023 Q2: How many drinks containi ng alcohol do you have on a typical day when you are drinking? 3 or 4 07/01/2023 Q3: How often do you have si x or more drinks on one occasion? Less than monthly 07/01/2023 PHQ-2 Answer Date Recorded PHQ-2 Total Score (If total score is 3 or more points, staff should administer the PHQ-9) 1 10/13/2024 PHQ-9 Answer Date Recorded PHQ-9 Total Score 14 10/13/2024 Sex and Gender Information Value Date Recorded Sex Assigned at Not on file Legal Sex Male 10:40 AM CDT Gender Identity Male 07/11/2022 3:35 PM CDT Sexual Orientation Straight 07/11/2022 3: 35 PM CDT documented as of this encounter Plan of Treatment Not on file documented as of this encounter Visit Diagnoses Not on filedocumented in this encounter Care Teams Financial Planning Assistant Relationship Specialty Start Date End Date Gabo Hawkins MD [address] [place] [address] PCP - General Family Medicine 10/01/22 Ayush Sweet MD [address] [place] [address] Consulting Physician Cardiology 10/01/22 documented as of this encounter
--- OUTSIDE RECORDS SUMMARY | 2024-12-05 15:12 | XMS_ITS | Clinical Summary ---
Author Organization [facility] Address [address] [place] [address] Phone Care Team Providers Care Engineering Project Manager Name Role Phone Gabo Hawkins MD Primary Care Provider [phone] Ayush Sweet MD Unavailable [phone] Allergies Active Allergy Reactions Criticality Noted Date Comments Morphine Itching Low 07/07/2022 Medications aspirin 81 mg enteric coated tablet Take 1 tablet (81 mg total) by mouth daily Active azelastine (ASTELIN) 137 mcg (0.1 %) nasal spray 2 sprays 023 Active icosapent ethyL (VASCEPA) 1 gram capsule Take 2 capsules (2 g total) by mouth 2 (two) times a day 120 capsule 11 023 Active metFORMIN (GLUCOPHAGE) 1,000 mg tabletIndications :Mixed diabetic hyperlipidemia associated with type 2 diabetes mellitus (HCC) Take 1 tablet (1,000 mg total) by mouth 2 (two) times a day with meals 180 tablet 3 023 Active hydroCHLOROthiazi de (HYDRODIURIL) 25 mg tablet TAKE 1 TABLET BY MOUTH EVERY DAY 90 tablet 3 024 Active FLUoxetine (PROzac) 20 mg capsuleIndication s:MONICA (generalized anxiety disorder),Moderat e episode of recurrent major depressive disorder (HCC) Take 3 capsules (60 mg total) by mouth daily 3 tablets by mouth once daily 270 capsule 3 024 2024 Active atorvastatin (LIPITOR) 80 mg tablet Take 1 tablet (80 mg total) by mouth daily 90 tablet 3 024 2024 Active Jardiance 25 mg tabletIndications :Hypertension associated with diabetes (HCC) TAKE 1 TABLET (25 MG TOTAL) BY MOUTH DAILY. 30 tablet 3 024 Active albuterol HFA (PROVENTIL HFA,VENTOLIN HFA,PROAIR HFA) 90 mcg/actuation inhaler Inhale 2 puffs every 6 (six) hours as needed for wheezing or shortness of breath 1 each 3 024 Active ARIPiprazole (ABILIFY) 2 mg tabletIndications :Moderate episode of recurrent major depressive disorder (HCC) TAKE 1 TABLET BY MOUTH EVERY DAY 100 tablet 1 024 Active albuterol HFA (PROVENTIL HFA,VENTOLIN HFA,PROAIR HFA) 90 mcg/actuation inhalerIndication s:Exacerbation of asthma, unspecified asthma severity, unspecified whether persistent Inhale 2 puffs every 6 (six) hours as needed for wheezing 1 each 024 2024 Active Additional Information Patient not taking.Reported on 11/30/2024 metoprolol XL (TOPROL-XL) 100 mg 24 hr tabletIndications :Hypertension associated with diabetes (HCC) TAKE 1 TABLET BY MOUTH EVERY DAY 90 tablet 2 024 Active celecoxib (CeleBREX) 200 mg capsule TAKE 1 CAPSULE BY MOUTH TWICE A DAY 60 capsule 2 025 Active tadalafiL (CIALIS) 20 mg tablet Take 1 tablet (20 mg total) by mouth daily as needed for erectile dysfunction 10 tablet 3 025 Active UNABLE TO FIND Take 2 each by mouth daily Med Name: Hawk Testosterone Support (Kava, ashwagandha, copper, zinc, magnesium, vitamin D3, rc) Active ferrous sulfate 325 mg (65 mg of elemental iron) tabletIndications :Iron Deficiency Anemia Take 1 tablet (325 mg total) by mouth daily with breakfast 30 tablet 11 025 2025 Active traMADoL (ULTRAM) 50 mg tablet Take 1 tablet (50 mg total) by mouth 2 (two) times a day as needed for pain 60 tablet 025 2024 Active losartan (COZAAR) 100 mg tablet TAKE 1 TABLET BY MOUTH EVERY DAY 90 tablet 2 025 Active semaglutide (Rybelsus) 14 mg tabletIndications :Mixed diabetic hyperlipidemia associated with type 2 diabetes mellitus (HCC) TAKE 1 TABLET (14 MG TOTAL) BY MOUTH ACCOUNT MANAGER SALES REPRESENTATIVE BEFORE BREAKFAST 90 tablet 025 Active ezetimibe (ZETIA) 10 mg tablet Take 1 tablet (10 mg total) by mouth daily 90 tablet 025 2025 Active ezetimibe (ZETIA) 10 mg tablet Take 1 tablet (10 mg total) by mouth daily 30 tablet 11 024 2024 Discontinued(R eorder) losartan (COZAAR) 100 mg tablet TAKE 1 TABLET BY MOUTH EVERY DAY 90 tablet 2 024 2024 Discontinued semaglutide (Rybelsus) 14 mg tabletIndications :Mixed diabetic hyperlipidemia associated with type 2 diabetes mellitus (HCC) TAKE 1 TABLET (14 MG TOTAL) BY MOUTH ACCOUNT MANAGER SALES REPRESENTATIVE BEFORE BREAKFAST 100 tablet 1 024 2024 Discontinued Active Problems Problem Noted Date Diagnosed Date Acute pain of left knee 11/30/2024 Right hip pain 11/30/2024 Severe obesity 10/13/2024 Assessment & Plan (10/13/2024 11:40 AM IRRIGATIONIST): BMI Follow-up includes: nutrition counseling, exercise counseling, and education provided. Coronary artery disease of n ative artery of [place] heart with stable angina pectoris 02/10/2024 Palpitations 09/28/2023 Disc degeneration, lumbar 12/08/2022 Foot drop, right 12/08/2022 Spondylosis of lumbar region without myelopathy or radiculopathy 12/08/2022 DANITA (obstructive sleep apnea) 11/20/2022 Medication side effects 11/20/2022 Lumbar radiculopathy 10/29/2022 Hx of CABG 10/06/2022 Encounter for medical examination to establish c are 10/02/2022 Assessment & Plan (10/02/2022 4:16 PM IRRIGATIONIST): A(n) initial well visit to establish care has been performed today. Antonio Quijano is not up to date on screening tests. He is in need of Diabetic eye exam, Colon cancer screening, Diabetic kidney disease screening and Cholesterol screening- getting old records. He is not up to date on needed preventative vaccinations; He is in need of Tdap/Td, Pneumonia (Prevnar-13 or Pneumovax-23), Zoster and Covid-19 (booster). We discussed healthy lifestyle habits, educational material has been given. Medications reviewed, changes documented as per the medical record and discussed with patient along with risks vs benefits. Losartan increased to 50 mg daily Planning on referral to pain management and PT, but will get lumbar xr first Want to get MRI records from [place]; will need a release Pulmonary function test may be needed if cough doesn't continue to improve Considering Abilify as adjunct on the Fluoxetine Continue current regimen otherwise Class 2 severe obesity due t o excess calories with serious comorbidity and body mass index (BMI) of 39.0 to 39.9 in adult 10/01/2022 Assessment & Plan (05/12/2023 11:43 AM CDT): Encouraged adherence to diet, decreasing fried/fatty foods and alcohol intake. Assessment & Plan (03/11/2023 4:15 PM CDT): Discussed the bike would be a lower impact exercise he could trial. Healthy, low carbohydrate lifestyle and exercise for 150min/week recommended Assessment & Plan (02/27/2023 3:33 PM CDT): BMI Follow-up includes: nutrition counseling, exercise counseling and education provided. Alcohol abuse 07/07/2022 Coronary artery disease invo lving [place] coronary artery of [place] heart without angina pectoris 07/07/2022 Mixed diabetic hyperlipidemi a associated with type 2 diabetes mellitus 07/07/2022 Type 2 diabetes mellitus wit h stage 3a chronic kidney disease, without long-term current use of insulin 07/07/2022 Assessment & Plan (05/12/2023 11:42 AM CDT): A1c 11.3% today in office. Continuing Jardiance 25 mg and Metformin. Adding in Rybelsus (considered Ozempic but pt hesitant w/ it being an injection), education provided. Samples given today in office. Discussed triglycerides w/ patient, he is taking Vascepa and his recently increased dose of Lipitor 80 mg. Also cutting back on alcohol intake and fried/fatty foods. Discussed importance of doing so. Hypertension associated with diabetes 07/07/2022 Assessment & Plan (05/12/2023 11:42 AM CDT): BP stable in office, home BP log to be kept. No changes today. Assessment & Plan (02/27/2023 3:35 PM CDT): BP is mildly elevated Continuing losartan and Toprol XL If sleep apnea confirmed, that might help with BP management Discussed need to adhere to DASH, diabetic diet Continuing metformin, Jardiance Assessment & Plan (12/16/2022 2:55 PM CDT): BP stable in office, will do his labs before his May follow up. Assessment & Plan (10/30/2022 5:01 PM IRRIGATIONIST): A1c, microalbuminuria pending Metformin will continue pending result of a1c BP improved, will continue losartan at current dose Moderate episode of recurrent major depressive d isorder 07/07/2022 MONICA (generalized anxiety disorder) 07/07/2022 Sleep disorder 03/27/2019 Resolved Problems Problem Noted Date Diagnosed Date Resolved Date Mixed hyperlipidemia 03/27/2019 023 Encounters Date Type Department Care Team Description 12/04/2024 Results Follow-Up [facility] Primary Care at [address] [phone] Terri Alejo NP 11/30/2024 9:30 AM CDT Ancillary Procedure [facility] Imaging at [address] [phone] Acute pain of left knee 11/30/2024 9:15 AM CDT Ancillary Procedure [facility] Imaging at [address] [phone] Lumbar radiculopathy 11/30/2024 9:00 AM CDT Office Visit [facility] at [address] [phone] Terri Alejo NP Lumbar radiculopathy (Primary Dx); Acute pain of left knee; Right hip pain 11/29/2024 Nurse Triage [facility] at [address] [phone] Gabo Hawkins MD 11/17/2024 Telephone [facility] at [address] [phone] Emilia Lovelace MA 10/14/2024 Orders Only [facility] at [address] [phone] Gabo Hawkins MD Hypertension associated with diabetes (HCC) (Primary Dx); Iron deficiency anemia, unspecified iron deficiency anemia type 10/13/2024 12:00 PM IRRIGATIONIST Lab [facility] at [address] [phone] Hypertension associated with diabetes (HCC) (Primary Dx) 10/13/2024 11:55 AM IRRIGATIONIST - 10/13/2024 11:59 PM IRRIGATIONIST Hospital Encounter [address] [address] Hypertension associated with diabetes (HCC) Discharge Disposition: Discharge to home or self care 10/13/2024 11:30 AM IRRIGATIONIST Office Visit [facility] at [address] [phone] Gabo Hawkins MD Hypertension associated with diabetes (HCC) (Primary Dx); Encounter for administration of vaccine; Severe obesity (HCC); Moderate episode of recurrent major depressive disorder (HCC); Type 2 diabetes mellitus with stage 3a chronic kidney disease, without long-term current use of insulin (HCC) 09/07/2024 Telephone [facility] Primary Care at [address] [phone] Gabo Hawkins MD PA for Rylupesus from Last 3 Months Immunizations Immunization Administration Dates Next Due Influenza, Quadrivalent, Spl it, Preservative Free, Intramuscular 07/07/2022,08/11/2021 Influenza, Trivalent, Preser vative Free, Intramuscular 10/13/2024 Influenza, Unspecified 06/01/2023(Deferr ed: Patient Refused),05/12/2023(Deferred: Patient Refused),09/20/2022(Deferred: Patient Refused),09/20/2021(Deferred: Patient Refused),06/20/2021 Pfizer SARS-CoV-2 Monovalent Vaccination (12+ Yrs) PURPLE 12/26/2020,12/24/2020 Pneumococcal Polysaccharide PPV23 10/22/2018 Tdap 10/22/2018 Surgical History Surgery Date Site/Laterality Comments BYPASS GRAFT AXILLARY-BRACHI AL W/ [facility] CORONARY ARTERY BYPASS GRAFT 2018 Medical History Medical History Date Comments Depression Hypertension Asthma Diabetes mellitus (HCC) Anxiety Coronary artery disease Alcohol abuse 1992 Anemia Childhood, thalacemiaC Arthritis 2017 Sickle cell anemia (HCC) Childhood, trait, infre uquent episodes Sleep apnea Family History Medical History Relation Name Comments Alcohol abuse Father Lm Depression Father Lm Diabetes Father Lm Early Father Lm Heart attack Father Lm 4x CABG Heart disease Father Lm Malig Hypertension Father Lm Alzheimer's disease Maternal Grandfather Dileep [place] Heart disease Maternal Grandfather Dileep [place] Memory loss Maternal Grandfather Dileep [place] Stroke Maternal Grandfather Dileep [place] Alzheimer's disease Maternal Grandmother Anne [place] Clotting disorder Maternal Grandmother Anne [place] Heart disease Maternal Grandmother Anne [place] Vision loss Maternal Grandmother Anne [place] Arthritis Mother Rocio W Quijano Breast cancer Mother Rocio W Quijano Cancer Mother Rocio W Quijano Cervical cancer Mother Rocio Byrd Quijano Clotting disorder Mother Rocio Byrd Quijano Early Mother Rocio W Quijano Heart disease Mother Rocio W Quijano Hypertension Mother Rocio W Quijano Miscarriages / Stillbirths Mother Rocio W Quijano Cancer Mother's Brother Dileep [place] Jr Alcohol abuse Sister 2 Karolyn Miscarriages / Stillbirths Sister 2 Karolyn Vision loss Sister 2 Karolyn Relation Name Status Comments Father Gael Maternal Grandfather Dileep [place] Maternal Grandmother Anne [place] Mother Rocio Quijano Alive Mother's Brother Dileep [place] Jr Sister 1 Alive Sister 2 Karolyn Social History Tobacco Use Types Packs/Day Years Used Date Smoking Tobacco: Never Cigarettes Passive Smoke Exposure: Never Smokeless Tobacco: Never Tobacco Cessation:Counseling Given: Not Answered AUDIT-C Answer Date Recorded Q1: How often [...] Orientation Straight 07/11/2022 3: 35 PM CDT Obstetrics History Last Filed Vital Signs Vital Sign Reading Time Taken Comments Blood Pressure 140/88 11/30/2024 9:17 AM CDT Pulse 93 11/30/2024 9:17 AM CDT Temperature 36.6 C (97.8 F) 11/30/2024 9:17 AM CDT Respiratory Rate 18 11/30/2024 9:17 AM CDT Oxygen Saturation 95% 11/30/2024 9:1 7 AM CDT Inhaled Oxygen Concentration - - Weight 122.5 kg (270 lb) 11/30/2024 9:1 7 AM CDT Patient stated Height 182.9 cm (6') 11/30/2024 9:17 AM CDT Body Mass Index 36.62 11/30/2024 9:17 AM CDT Plan of Treatment Health Maintenance Due Date Last Done Comments Regular Well Visit/Exam 18-64 1986 Pneumococcal vaccine <65 (2 of 2 - PCV) 10/22/2019 10/22/2018 Foot Exam 10/01/2023 10/01/2022 Dilated Eye Exam 12/17/2023 12/16/2022 Covid-19 Vaccine (4 - season) 2024 01/17/2021, 12/26/2020, 12/24/2020 Zoster Vaccine (1 of 2) 02/09/2025 Post poned from 2018 (Insurance / Financial) Hemoglobin A1C 04/12/2025 10/13/2024, 08/2 02/2024, 06/01/2023, Additional history exists Albumin Creatinine Ratio, Urine 10/13/2025 10/13/2024, 10/29/2022 Depression Screening 10/13/2025 10/13/2024, 10/13/2024, 05/15/2024, Additional history exists Lipid Panel 10/13/2025 10/13/2024, 11/0 12/2023, 05/15/2024, Additional history exists eGFR 10/13/2025 10/13/2024, 08/2 02/2024, 02/23/2023, Additional history exists Prostate Cancer Screening-PSA 05/15/2026 05/15/2024, 07/10/2022 DTaP/Tdap/Td Vaccine (2 - Td or Tdap) 10/22/2028 10/22/2018 Colon Cancer Screening-Colonoscopy 07/16/2031 07/16/2021 Hepatitis B Screening Completed 05/15/2024 Hepatitis C Screening Completed 05/15/2024 Influenza Vaccine Completed 10/13/2024, , 08/11/2021, Additional history exists Procedures Procedure Name Priority Date/Time Associated Diagnosis Comments XR SPINE LUMBAR ROUTINE Schedule Routine, Read Routine (OP Routine) 11/30/2024 10:04 AM CDT Lumbar radiculopathy XR KNEE LEFT 3 VIEWS Schedule Routine, Read Routine (OP Routine) 11/30/2024 10:04 AM CDT Acute pain of left knee EGFR Routine 10/13/2024 11:55 AM IRRIGATIONIST Hypertension associated with diabetes (HCC) DIFFERENTIAL AUTO Routine 10/13/2024 11:55 AM IRRIGATIONIST Hypertension associated with diabetes (HCC) ALBUMIN CREATININE RATIO, URINE Routine 10/13/2024 11:55 AM IRRIGATIONIST Hypertension associated with diabetes (HCC) LIPID PANEL Routine 10/13/2024 11:55 AM IRRIGATIONIST Hypertension associated with diabetes (HCC) HEMOGLOBIN A1C Routine 10/13/2024 11:55 AM IRRIGATIONIST Hypertension associated with diabetes (HCC) COMPREHENSIVE METABOLIC PANEL Routine 10/13/2024 11:55 AM IRRIGATIONIST Hypertension associated with diabetes (HCC) CBC WITH AUTO DIFFERENTIAL Routine 10/13/2024 11:55 AM IRRIGATIONIST Hypertension associated with diabetes (HCC) HEPATITIS C ANTIBODY Routine 05/15/2024 2:30 PM CDT Need for hepatitis C screening test PSA SCREEN Routine 05/15/2024 2:30 PM CDT Prostate cancer screening DIABETES EYE EXAM Routine 12/16/2022 COLONOSCOPY Routine 07/16/2021 from Last 3 Months or Most Recently Relevant to Health Maintenance Results * XR Spine Lumbar 4 or More Views (11/30/2024 10:04 AM CDT) Anatomical Region Laterality Modality L-spine N/A Digital Radiogra phy 12/01/2024 5:21 PM CDT Narrative 12/01/2024 5:26 PM CDT EXAM DESCRIPTION: XR SPINE LUMBAR 4 OR MORE VIEWS; XR KNEE LEFT 3 VIEWS REASON FOR STUDY: exacerbation of lumbar spine acute left knee pain Lower back pain with radiculopathy and left knee pain since Wednesday. No known injury. No prior surgery to the knee or the lower back. History of [place]-Schlatter's. FINDINGS: Four views lumbar spine and three views left knee submitted with comparison 10/01/2022. Lumbar spine: No acute fracture. Alignment is normal. Minimal L1-L2 degenerative disc disease. Inferior lumbar facet osteoarthritis. Left knee: No acute fracture. Alignment is normal. Mild patellofemoral compartment osteoarthritis. Insertional distal patellar tendinosis is present. Prepatellar soft tissue swelling is present. IMPRESSION: Minimal L1-L2 degenerative disc disease with inferior lumbar facet osteoarthritis. Mild patellofemoral compartment left knee osteoarthritis. Insertional distal left patellar tendinosis with prepatellar soft tissue swelling and calcification. THIS IS AN ELECTRONICALLY VERIFIED FINAL REPORT 12/01/2024 5:26 PM - Electronically signed by Valdo Evans M.D. T: Report ID: [id number] Reading Location: [place] [id number] Procedure Note Valdo Evans MD - 12/01/2024 EXAM DESCRIPTION: XR SPINE LUMBAR 4 OR MORE VIEWS; XR KNEE LEFT 3 VIEWS REASON FOR STUDY: exacerbation of lumbar spine acute left knee pain Lower back pain with radiculopathy and left knee pain since Wednesday. [place] injury. No prior surgery to the knee or the lower back. History of [place]-Schlatter's. FINDINGS: Four views lumbar spine and three views left knee submitted with comparison 10/01/2022. Lumbar spine: No acute fracture. Alignment is normal. Minimal L1-L2 degenerative disc disease. Inferior lumbar facet osteoarthritis. Left knee: No acute fracture. Alignment is normal. Mild patellofemoral compartment osteoarthritis. Insertional distal patellar tendinosis is present. Prepatellar soft tissue swelling is present. IMPRESSION: Minimal L1-L2 degenerative disc disease with inferior lumbar facet osteoarthritis. Mild patellofemoral compartment left knee osteoarthritis. Insertional distal left patellar tendinosis with prepatellar soft tissue swelling and calcification. THIS IS AN ELECTRONICALLY VERIFIED FINAL REPORT 12/01/2024 5:26 PM - Electronically signed by Valdo Evans M.D. T: Report ID: [id number] Reading Location: [id number] Terri Alejo NP IMG XR PROCEDURES Final Resul t * XR Knee Left 3 Views (11/30/2024 10:04 AM CDT) Anatomical Region Laterality Modality Lower Extremities, Knee Left Digital Radiography 12/01/2024 5:21 PM CDT Narrative 12/01/2024 5:26 PM CDT EXAM DESCRIPTION: XR SPINE LUMBAR 4 OR MORE VIEWS; XR KNEE LEFT 3 VIEWS REASON FOR STUDY: exacerbation of lumbar spine acute left knee pain Lower back pain with radiculopathy and left knee pain since Wednesday. No known injury. No prior surgery to the knee or the lower back. History of [place]-Schlatter's. FINDINGS: Four views lumbar spine and three views left knee submitted with comparison 10/01/2022. Lumbar spine: No acute fracture. Alignment is normal. Minimal L1-L2 degenerative disc disease. Inferior lumbar facet osteoarthritis. Left knee: No acute fracture. Alignment is normal. Mild patellofemoral compartment osteoarthritis. Insertional distal patellar tendinosis is present. Prepatellar soft tissue swelling is present. IMPRESSION: Minimal L1-L2 degenerative disc disease with inferior lumbar facet osteoarthritis. Mild patellofemoral compartment left knee osteoarthritis. Insertional distal left patellar tendinosis with prepatellar soft tissue swelling and calcification. THIS IS AN ELECTRONICALLY VERIFIED FINAL REPORT 12/01/2024 5:26 PM - Electronically signed by Valdo Evans M.D. T: Report ID: [id number] Reading Location: [id number] Procedure Note Valdo Evans MD - 12/01/2024 EXAM DESCRIPTION: XR SPINE LUMBAR 4 OR MORE VIEWS; XR KNEE LEFT 3 VIEWS REASON FOR STUDY: exacerbation of lumbar spine acute left knee pain Lower back pain with radiculopathy and left knee pain since Wednesday. [place] injury. No prior surgery to the knee or the lower back. History of [place]-Schlatter's. FINDINGS: Four views lumbar spine and three views left knee submitted with comparison 10/01/2022. Lumbar spine: No acute fracture. Alignment is normal. Minimal L1-L2 degenerative disc disease. Inferior lumbar facet osteoarthritis. Left knee: No acute fracture. Alignment is normal. Mild patellofemoral compartment osteoarthritis. Insertional distal patellar tendinosis is present. Prepatellar soft tissue swelling is present. IMPRESSION: Minimal L1-L2 degenerative disc disease with inferior lumbar facet osteoarthritis. Mild patellofemoral compartment left knee osteoarthritis. Insertional distal left patellar tendinosis with prepatellar soft tissue swelling and calcification. THIS IS AN ELECTRONICALLY VERIFIED FINAL REPORT 12/01/2024 5:26 PM - Electronically signed by Valdo Evans M.D. T: Report ID: [id number] Reading Location: [place] [address] Terri Alejo ELECTRO MECHANICAL ASSEMBLER IMG XR PROCEDURES Final Resul t * eGFR (10/13/2024 11:55 AM IRRIGATIONIST) eGFR 79 >=60 mL/min/1. 73 m2 Comment: Interpretive Data Reference Interval Normal >/= 90 mL/min/1.73m2 Mildly decreased* 60 - 89 mL/min/1.73m2 Mildly to moderately decreased 45 - 59 mL/min/1.73m2 Moderately to severely decreased 30 - 44 mL/min/1.73m2 Severely decreased 15 - 29 mL/min/1.73m2 Kidney Failure < 15 mL/min/1.73m2 *Relative to young adult level Estimated glomerular filtration rate is determined by the 2020 CKD-EPI equation recommended by the National [employer] (A Unifying Approach to GFR Estimation: Recommendations of the NKF-ASK Task Force on Reassessing the Inclusion of Race in Diagnosing Kidney Disease, JASN 2020). The CKD-EPI equation should not be used for patients with unstable renal function and has not been validated in children and those over 70. Current interpretive data was last reviewed 2021. Blood 10/13/2024 11:5 5 AM IRRIGATIONIST 10/13/2024 3:00 PM IRRIGATIONIST Gabo Hawkins MD LAB BLOOD ORDERABLES Final Result Performing Organization Address City/State/ZIP [place] Phone Number PAT [phone] [address] Department [place] [address] * (ABNORMAL) Differential, auto (10/13/2024 11:55 AM IRRIGATIONIST) Neutrophil abs 9.3(H) 1.5 - 6.5 K/cumm Imm gran abs 0.1 0.0 - 0.1 K/cumm [facility] Lymphocyte abs 2.0 0.8 - 3.3 K/cumm [facility] Monocyte abs 0.8 0.2 - 0.8 K/cumm [facility] Eosinophil abs 0.3 0.0 - 0.5 K/cumm [facility] Basophil abs 0.1 0.0 - 0.1 K[facility]umm [facility] 74.3 % [facility] Comment: Interpretive Data Percent cell count reference ranges are not reported, since discordance with absolute values may lead to misinterpretation of CBC data. Current Interpretive Data was last revised on 2017. Imm gran pct 0.4 % [facility] Comment: Interpretive Data Percent cell count reference ranges are not reported, since discordance with absolute values may lead to misinterpretation of CBC data. Current Interpretive Data was last revised on 2017. Lymphocyte pct 15.8 % [facility] Comment: Interpretive Data Percent cell count reference ranges are not reported, since discordance with absolute values may lead to misinterpretation of CBC data. Current Interpretive Data was last revised on 2017. Monocyte pct 6.3 % [facility] Comment: Interpretive Data Percent cell count reference ranges are not reported, since discordance with absolute values may lead to misinterpretation of CBC data. Current Interpretive Data was last revised on 2017. Eosinophil pct 2.6 % [facility] Comment: Interpretive Data Percent cell count reference ranges are not reported, since discordance with absolute values may lead to misinterpretation of CBC data. Current Interpretive Data was last revised on 2017. Basophil pct 0.6 % [facility] Comment: Interpretive Data Percent cell count reference ranges are not reported, since discordance with absolute values may lead to misinterpretation of CBC data. Current Interpretive Data was last revised on 2017. Blood 10/13/2024 11:5 5 AM IRRIGATIONIST 10/13/2024 2:51 PM IRRIGATIONIST Gabo Hawkins MD LAB BLOOD ORDERABLES Final Result Performing Organization Address [facility] Co de Phone Number PAT PAREDES [phone] Department of Laboratories [place], [place] [id number] * (ABNORMAL) CBC with auto differential (10/13/2024 11:55 AM IRRIGATIONIST) Pathologist [facility] WBC 12.6(H) 3.8 - 9.9 K/cumm Hgb 11.7(L) 13.0 - 17.5 g/dL [facility] Hct 38.7(L) 38.9 - 50.3 % [facility] Plt 369 150 - 400 K/cumm [facility] CH MPV 10.5 9.1 - 12.3 fL [facility] RBC 4.91 4.30 - 5.80 M/cumm [facility] MCV 78.8(L) 81.3 - 96.4 fL [facility] MCH 23.8(L) 27.1 - 33.3 pg [facility] MCHC 30.2(L) 32.3 - 35.7 g/dL [facility] RDW CV 15.7(H) 11.1 - 14.9 % [facility] RDW SD 45.1 35.7 - 48.1 fL [facility] NRBC abs 0.00 0.00 - 0.01 K/cumm [facility] Blood 10/13/2024 11:5 5 AM IRRIGATIONIST 10/13/2024 2:51 PM IRRIGATIONIST Gabo Hawkins MD LAB BLOOD ORDERABLES Final Result Performing Organization Address [facility]/ZIP Co de Phone Number PAT PAREDES [phone] [place] [address] * Albumin Creatinine Ratio, Urine (10/13/2024 11:55 AM IRRIGATIONIST) Pathologist [facility] Albumin Ur 34.0 mg/L Comment: Interpretive Data No reference range established. Current interpretive data was last revised 2019. Creatinine Ur 121.2 mg/dL [facility] Comment: Interpretive Data No reference range established. Current interpretive data was last revised 2019. Albumin Creatinine Ratio, Ur 28 1 - 29 mg/g PAT Urine 10/13/2024 11:5 5 AM IRRIGATIONIST 10/13/2024 2:51 PM IRRIGATIONIST Gabo Hawkins MD LAB URINE ORDERABLES Final Result Performing Organization Address [facility] Phone Number PAT [phone] [address] [place] [address] * (ABNORMAL) Hemoglobin A1c (10/13/2024 11:55 AM IRRIGATIONIST) Hgb A1C 8.9(H) 4.0 - 5.6 % Estimated Average Glucose 209 mg/dL PAT Comment: The ADA recommends reporting an estimated Average Glucose (eAG) with all Hemoglobin A1c results using the equation derived from a study of 507 normal and diabetic adults. Minority populations were underrepresented and children were not included. (Diabetes Care 31:4084-2764, 2008). The eAG is not equivalent to a fasting glucose. Blood 10/13/2024 11:5 5 AM IRRIGATIONIST 10/13/2024 2:51 PM IRRIGATIONIST Result [facility] Gabo Hawkins MD LAB BLOOD ORDERABLES Final Result Performing Organization Address [facility] Phone Number PAT PAREDES [phone] [address] [place] [address] * (ABNORMAL) Lipid panel (10/13/2024 11:55 AM IRRIGATIONIST) Cholesterol 121 30 - 199 mg/dL Comment: Interpretive Data Ages < or = 19 years Acceptable: <170 mg/dL Borderline high: 170-199 mg/dL High: >or= 200 mg/dL Ages > or = 20 years Desirable: <200 mg/dL Borderline high: 200-239 mg/dL High: >or= 240 mg/dL Literature References: 1. Expert Panel on Integrated Guidelines for Cardiovascular Health and Risk Reduction in Children and Adolescents. Pediatrics 2011;128:S213 2. NCEP Expert Panel. Circulation 2004;110:227 Current Interpretive Data was last revised on 2018. Triglycerides 119 <=149 mg/dL PAT Comment: Interpretive Data Ages < or = 9 years Acceptable: <75 mg/dL Borderline high: 75-99 mg/dL High: >or= 100 mg/dL Ages 10 to 20 years Acceptable: <90 mg/dL Borderline high: 90-129 mg/dL High: >or= 130 mg/dL Ages > or = 20 years Desirable: <150 mg/dL Borderline high: 150-199 mg/dL High: 200-499 mg/dL Very high: >or= 499 mg/dL Literature References: 1. Expert Panel on Integrated Guidelines for Cardiovascular Health and Risk Reduction in Children and Adolescents. Pediatrics 2011;128:S213 2. NCEP Expert Panel. Circulation 2004;110:227 Current Interpretive Data was last revised on 2018. HDL 34(L) >=40 mg/dL PAT Comment: Interpretive Data Ages < or = 19 years Acceptable: >45 mg/dL Borderline low: 40-45 mg/dL Low: <40 mg/dL Ages > or = 20 years Desirable: >or= 60 mg/dL Low: <40 mg/dL Literature References: 1. Expert Panel on Integrated Guidelines for Cardiovascular Health and Risk Reduction in Children and Adolescents. Pediatrics 2011;128:S213 2. NCEP Expert Panel. Circulation 2004;110:227 Current Interpretive Data was last revised on 2018. LDL, calculated 65 <=129 mg/dL PAT Comment: Interpretive Data Ages < or = 19 years Acceptable: <110 mg/dL Borderline high: 110-129 mg/dL High: >or= 130 mg/dL Ages > or = 20 years Optimal: <100 mg/dL Near optimal: 100-129 mg/dL Borderline high: 130-159 mg/dL High: >160 mg/dL Calculated using the Fred LDL-C estimating equation. This equation was implemented on 2024. Prior to this date LDL-C was estimated using the Friedewald equation. Literature References: 1. Expert Panel on Integrated Guidelines for Cardiovascular Health and Risk Reduction in Children and Adolescents. Pediatrics 2011;128:S213 2. NCEP Expert Panel. Circulation 2004;110:227 3. Fred Carreno al. [place] Cardiol. 2020 January 18;5(5):540-548. doi: 10.1001/[email or web address] Current Interpretive Data was last revised on 2024. Non-HDL Cholesterol 87 mg/dL [facility] Comment: Interpretive Data Ages < or = 19 years Acceptable: <120 mg/dL Borderline high: 120-144 mg/dL High: >145 mg/dL Ages > or = 20 years When triglycerides are >200 mg/dL, Non-HDL cholesterol is a secondary target of therapy with treatment goals that are 30 mg/dL greater than the LDL cholesterol target. Literature References: 1. Expert Panel on Integrated Guidelines for Cardiovascular Health and Risk Reduction in Children and Adolescents. Pediatrics 2011;128:S213 2. NCEP Expert Panel. Circulation 2004;110:227 Current Interpretive Data was last revised on 2018. Ch[facility]/HDL ratio 4 [facility] Blood 10/13/2024 11:5 5 AM IRRIGATIONIST 10/13/2024 2:51 PM IRRIGATIONIST Gabo Hawkins MD LAB BLOOD ORDERABLES Final Result [facility] [phone] Department [place] [address] * Comprehensive metabolic panel (10/13/2024 11:55 AM IRRIGATIONIST) Sodium 136 135 - 145 mmol/L Potassium, pl 4.2 3.3 - 4.9 mmol/L [facility] Chloride 97 97 - 110 mmol/L [facility] CO2 29 22 - 32 mmol/L [facility] Anion gap 10 2 - 15 mmol/L [facility] BUN 12 6 - 25 mg/dL [facility] Creatinine 1.10 0.80 - 1.30 mg/dL [facility] Glucose 143 70 - 199 mg/dL [facility] Comment: Interpretive Data Fasting glucose >/= 126 mg/dl is diagnostic for diabetes. Fasting is defined as no caloric intake for at least 8 hours. Fasting glucose between 100 mg/dl to 125 mg/dl is diagnostic of prediabetes. In a patient with classic symptoms of hyperglycemia or hyperglycemic crisis, a random glucose >/= 200 mg/dl is diagnostic for diabetes. In the absence of unequivocal hyperglycemia, results should be confirmed by repeat testing. The classification and Diagnosis of Diabetes Diabetes Care 202; 46: S19-S40. Current interpretive data was last revised 2022. Calcium 9.9 8.5 - 10.3 mg/dL [facility] Bilirubin, total 0.8 0.1 - 1.2 mg/dL [facility] Protein, pl 7.9 6.5 - 8.5 g/dL [facility] Albumin 4.1 3.5 - 5.0 g/dL [facility] Alk phos 72 40 - 130 Units/L [facility] ALT 28 7 - 55 Units/L [facility] AST 43 10 - 50 Units/L [facility] Blood 10/13/2024 11:5 5 AM IRRIGATIONIST 10/13/2024 2:51 PM IRRIGATIONIST Gabo Hawkins MD LAB BLOOD ORDERABLES Final Result Performing Organization Address [facility] de Phone Number REZAMICHAELA [phone] [place] [address] * PSA screen (05/15/2024 2:30 PM CDT) PSA-Total 0.70 <=3.90 ng/mL Comment: Interpretive Data AGE SEX REFERENCE INTERVAL 0 minutes-150 years Female None 0 minutes-49 years Male None 50-59 years Male 0-3.90 60-69 years Male 0-5.40 70-79 years Male 0-6.20 80-150 years Male 0-6.20 The Jhonny PSA Total assay procedure was used. Results from different manufacturers or methods may not be comparable. Serial testing should be performed using the same method. Current interpretive data last revised 22. Blood 05/15/2024 2:30 PM CDT 05/15/2024 9:03 PM CDT Gabo Hawkins MD LAB BLOOD ORDERABLES Final Result Performing Organization Address [facility] Co de Phone Number [facility] [phone] [facility] [employer] [place], [place] [id number] * Hepatitis C antibody Blood (05/15/2024 2:30 PM CDT) Hep C Ab Nonreactive Nonreactive Comment: Interpretive Data Nonreactive: Antibodies to HCV not detected. Does NOT exclude the possibility of recent exposure to HCV. Equivocal: Equivocal for HCV antibodies. Supplemental molecular testing will be automatically performed to determine infection status in accordance with current CDC screening recommendations. Reactive: Positive for HCV antibodies. This may represent current or past HCV infection. Supplemental molecular testing will be automatically performed to determine current infection status in accordance with current CDC screening recommendations. Interpretive data was last revised on 2019. Blood 05/15/2024 2:30 PM CDT 05/15/2024 9:03 PM CDT Gabo Hawkins MD LAB MICROBIOLOGY - GENERAL ORDERABLES Edited Result - Final PAT [id number] Department [place] [address] * DIABETES EYE EXAM (12/16/2022) SCRIBED DIABETIC DILATED EYE EXAM Comment:No Diabetic Retinopa thy Historical Provider HEALTH MAINTENANCE Final Result * COLONOSCOPY (07/16/2021) Historical Provider HEALTH MAINTENANCE Final Result from Last 3 Months or Most Recently Relevant to Health Maintenance Insurance [facility] CHOICE [facility]OS [facility] ACCESS Care Teams Engineering Project Manager Relationship Specialty Start Date End Date Gabo Hawkins MD [address] [place] [address] PCP - General Family Medicine 10/01/22 Ayush Sweet MD [address] [place] [address] Consulting Physician Cardiology 10/01/22
--- OUTSIDE RECORDS SUMMARY | 2024-12-05 15:12 | XMS_ITS | Referral Summary ---
Author Organization [facility] Address [address] [place] [address] Phone Care Team Providers Care Route Carrier Name Role Phone Gabo Hawkins MD Primary Care Provider [phone] Ayush Sweet MD Unavailable [phone] Encounters Date Type Department Care Team Description 12/04/2024 Results Follow-Up [facility] Primary Care at [address] [phone] Terri Alejo NP 11/30/2024 9:15 AM CDT Ancillary Procedure [facility] Imaging at [address] [phone] Lumbar radiculopathy 11/30/2024 9:30 AM CDT Ancillary Procedure [facility] Imaging at [address] [phone] Acute pain of left knee 11/30/2024 9:00 AM CDT Office Visit [facility] Primary Care at [address] [phone] Alejo, Terri A., [employer] Lumbar radiculopathy (Primary Dx); Acute pain of left knee; Right hip pain 11/29/2024 Nurse Triage [facility] Primary Care at [address] [phone] Gabo Hawkins MD 11/17/2024 Telephone [facility] Primary Care at [address] [phone] Emilia Lovelace MA 10/14/2024 Orders Only [facility] Primary Care at [address] [phone] Gabo Hawkins MD Hypertension associated with diabetes (HCC) (Primary Dx); Iron deficiency anemia, unspecified iron deficiency anemia type 10/13/2024 11:55 AM ASSOCIATE DIRECTOR OF SALES - 10/13/2024 11:59 PM ASSOCIATE DIRECTOR OF SALES Hospital Encounter [address] [address] Hypertension associated with diabetes (HCC) Discharge Disposition: Discharge to home or self care 10/13/2024 12:00 PM ASSOCIATE DIRECTOR OF SALES Lab [facility] Outpatient Lab at [address] [phone] Hypertension associated with diabetes (HCC) (Primary Dx) 10/13/2024 11:30 AM ASSOCIATE DIRECTOR OF SALES Office Visit [facility] Primary Care at [address] [phone] Gabo Hawkins MD Hypertension associated with diabetes (HCC) (Primary Dx); Encounter for administration of vaccine; Severe obesity (HCC); Moderate episode of recurrent major depressive disorder (HCC); Type 2 diabetes mellitus with stage 3a chronic kidney disease, without long-term current use of insulin (HCC) 09/07/2024 Telephone [facility] Primary Care at [address] [phone] Gabo Hawkins MD PA for Rybelsus from Last 3 Months Allergies Active Allergy Reactions Criticality Noted Date [...] BY MOUTH EVERY DAY 90 tablet 2 Active celecoxib (CeleBREX) 200 mg capsule TAKE 1 CAPSULE BY MOUTH TWICE A DAY 60 capsule 2 Active tadalafiL (CIALIS) 20 mg tablet Take 1 tablet (20 mg total) by mouth daily as needed for erectile dysfunction 10 tablet 3 Active UNABLE TO FIND Take 2 each [...] BY MOUTH EVERY DAY 90 tablet 2 Active semaglutide (Rybelsus) 14 mg tabletIndications :Mixed diabetic hyperlipidemia associated with type 2 diabetes mellitus (HCC) TAKE 1 TABLET (14 MG TOTAL) BY MOUTH CERTIFIED NURSE AIDE BEFORE BREAKFAST 90 tablet Active ezetimibe (ZETIA) 10 mg tablet Take [...] 1 TABLET (14 MG TOTAL) BY MOUTH CERTIFIED NURSE AIDE BEFORE BREAKFAST 100 tablet 1 024 2024 Discontinued Active Problems Problem Noted Date Diagnosed Date Acute pain of left knee 11/30/2024 Right hip pain 11/30/2024 Severe obesity 10/13/2024 Assessment & Plan (10/13/2024 11:40 AM ASSOCIATE DIRECTOR OF SALES): BMI Follow-up includes: nutrition counseling, exercise counseling, and education provided. 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 02/10/2024 Palpitations 09/28/2023 Disc degeneration, lumbar 12/08/2022 Foot drop, right 12/08/2022 Spondylosis of lumbar region without myelopathy or radiculopathy 12/08/2022 DANITA (obstructive sleep apnea) 11/20/2022 Medication side effects 11/20/2022 Lumbar radiculopathy 10/29/2022 Hx of CABG 10/06/2022 Encounter for medical examination to establish c are 10/02/2022 Assessment & Plan (10/02/2022 4:16 PM ASSOCIATE DIRECTOR OF SALES): A(n) initial well visit to establish care [...] first Want to get MRI records from [place]; will need a release Pulmonary function test [...] abuse 07/07/2022 Coronary artery disease invo lving habematolel coronary artery of habematolel heart without angina pectoris 07/07/2022 Mixed diabetic [...] office, will do his labs before his January follow up. Assessment & Plan (10/30/2022 5:01 PM ASSOCIATE DIRECTOR OF SALES): A1c, microalbuminuria pending Metformin will continue pending result of a1c BP improved, will continue losartan at current dose Moderate episode of recurrent major depressive d isorder 07/07/2022 MONICA (generalized anxiety disorder) 07/07/2022 Sleep disorder 03/27/2019 Resolved Problems Problem Noted Date Diagnosed Date Resolved Date Mixed hyperlipidemia 03/27/2019 023 Immunizations Immunization Administration Dates Next Due Influenza, Quadrivalent, Spl it, Preservative Free, Intramuscular 07/07/2022,08/11/2021 Influenza, Trivalent, Preser vative Free, Intramuscular 10/13/2024 Influenza, Unspecified 06/01/2023(Deferr ed: Patient Refused),05/12/2023(Deferred: Patient Refused),09/20/2022(Deferred: Patient Refused),09/20/2021(Deferred: Patient Refused),06/20/2021 Pfizer SARS-CoV-2 Monovalent Vaccination (12+ Yrs) PURPLE 12/26/2020,12/24/2020 Pneumococcal Polysaccharide PPV23 10/22/2018 Tdap 10/22/2018 Social History Tobacco Use Types Packs/Day Years [...] Orientation Straight 07/11/2022 3: 35 PM CDT Last Filed Vital Signs Vital Sign Reading [...] 11/30/2024 9:17 AM CDT Plan of Treatment Not on file Procedures Procedure Name Priority Date/Time Associated Diagnosis Comments XR SPINE LUMBAR ROUTINE Schedule Routine, Read Routine (OP Routine) 11/30/2024 10:04 AM CDT Lumbar radiculopathy XR KNEE LEFT 3 VIEWS Schedule Routine, Read Routine (OP Routine) 11/30/2024 10:04 AM CDT Acute pain of left knee EGFR Routine 10/13/2024 11:55 AM ASSOCIATE DIRECTOR OF SALES Hypertension associated with diabetes (HCC) DIFFERENTIAL AUTO Routine 10/13/2024 11:55 AM ASSOCIATE DIRECTOR OF SALES Hypertension associated with diabetes (HCC) ALBUMIN CREATININE RATIO, URINE Routine 10/13/2024 11:55 AM ASSOCIATE DIRECTOR OF SALES Hypertension associated with diabetes (HCC) LIPID PANEL Routine 10/13/2024 11:55 AM ASSOCIATE DIRECTOR OF SALES Hypertension associated with diabetes (HCC) HEMOGLOBIN A1C Routine 10/13/2024 11:55 AM ASSOCIATE DIRECTOR OF SALES Hypertension associated with diabetes (HCC) COMPREHENSIVE METABOLIC PANEL Routine 10/13/2024 11:55 AM ASSOCIATE DIRECTOR OF SALES Hypertension associated with diabetes (HCC) CBC WITH AUTO DIFFERENTIAL Routine 10/13/2024 11:55 AM ASSOCIATE DIRECTOR OF SALES Hypertension associated with diabetes (HCC) HEPATITIS C [...] by Valdo Evans M.D. T: Report ID: [id number] Reading Location: [id number] Procedure Note Valdo Evans MD - 12/01/2024 [...] by Valdo Evans M.D. T: Report ID: [id number] Reading Location: [place] [address] Terri Alejo NP IMG XR PROCEDURES Final [...] knee or the lower back. History of [place]. FINDINGS: Four views lumbar spine and three [...] by Valdo Evans M.D. T: Report ID: [id number] Reading Location: [id number] Procedure Note Valdo Evans MD - 12/01/2024 EXAM DESCRIPTION: XR SPINE LUMBAR 4 OR MORE VIEWS; XR KNEE LEFT 3 VIEWS REASON FOR STUDY: exacerbation of lumbar spine acute left knee pain Lower back pain with radiculopathy and left knee pain since Wednesday. [place] injury. No prior surgery to the knee or the lower back. History of [place]. FINDINGS: Four views lumbar spine and three [...] by Valdo Evans M.D. T: Report ID: [id number] Reading Location: [id number] Terri Alejo NP IMG XR PROCEDURES Final Resul t * eGFR (10/13/2024 11:55 AM ASSOCIATE DIRECTOR OF SALES) eGFR 79 >=60 mL/min/1. 73 m2 Comment: [...] reviewed 2021. Blood 10/13/2024 11:5 5 AM ASSOCIATE DIRECTOR OF SALES 10/13/2024 3:00 PM ASSOCIATE DIRECTOR OF SALES us Gabo Hawkins MD LAB BLOOD ORDERABLES Final Result Performing Organization Address City/State/ZIP Co fl Phone Number [facility] [address] [place] [address] * (ABNORMAL) Differential, auto (10/13/2024 11:55 AM ASSOCIATE DIRECTOR OF SALES) Neutrophil abs 9.3(H) 1.5 - 6.5 K/cumm Imm gran abs 0.1 0.0 - 0.1 K/cumm [facility] Lymphocyte abs 2.0 0.8 - 3.3 K/cumm [facility] Monocyte abs 0.8 0.2 - 0.8 K/cumm [facility] Eosinophil abs 0.3 0.0 - 0.5 K/cumm [facility] Basophil abs 0.1 0.0 - 0.1 K/cumm [facility] Neutrophil pct 74.3 % [facility] Comment: Interpretive Data Percent cell count reference ranges are not reported, since discordance with absolute values may lead to misinterpretation of CBC data. Current Interpretive Data was last revised on 2017. Imm gran pct 0.4 % [facility] Comment: Interpretive Data Percent cell count reference ranges are not reported, since discordance with absolute values may lead to misinterpretation of CBC data. Current Interpretive Data was last revised on 2017. Lymphocyte pct 15.8 % [facility] Comment: Interpretive Data Percent cell count reference ranges are not reported, since discordance with absolute values may lead to misinterpretation of CBC data. Current Interpretive Data was last revised on 2017. Monocyte pct 6.3 % [facility] Comment: Interpretive Data Percent cell count reference ranges are not reported, since discordance with absolute values may lead to misinterpretation of CBC data. Current Interpretive Data was last revised on 2017. Eosinophil pct 2.6 % [facility] Comment: Interpretive Data Percent cell count reference ranges are not reported, since discordance with absolute values may lead to misinterpretation of CBC data. Current Interpretive Data was last revised on 2017. Basophil pct 0.6 % [facility] Comment: Interpretive Data Percent cell count reference ranges are not reported, since discordance with absolute values may lead to misinterpretation of CBC data. Current Interpretive Data was last revised on 2017. Blood 10/13/2024 11:5 5 AM ASSOCIATE DIRECTOR OF SALES 10/13/2024 2:51 PM ASSOCIATE DIRECTOR OF SALES us Gabo Hawkins MD LAB BLOOD ORDERABLES Final Result [facility] [id number] [place] [address] * (ABNORMAL) CBC with auto differential (10/13/2024 11:55 AM ASSOCIATE DIRECTOR OF SALES) WBC 12.6(H) 3.8 - 9.9 K/cumm Hgb 11.7(L) 13.0 - 17.5 g/dL [facility] Hct 38.7(L) 38.9 - 50.3 % [facility] Plt 369 150 - 400 K/cumm [facility] MPV 10.5 9.1 - 12.3 fL [facility] RBC 4.91 4.30 - 5.80 M/cumm [facility] MCV 78.8(L) 81.3 - 96.4 fL [facility] MCH 23.8(L) 27.1 - 33.3 pg [facility] MCHC 30.2(L) 32.3 - 35.7 g/dL [facility] RDW CV 15.7(H) 11.1 - 14.9 % [facility] RDW SD 45.1 35.7 - 48.1 fL [facility] NRBC abs 0.00 0.00 - 0.01 K/cumm [facility] Blood 10/13/2024 11:5 5 AM ASSOCIATE DIRECTOR OF SALES 10/13/2024 2:51 PM ASSOCIATE DIRECTOR OF SALES Result [facility] Gabo Hawkins MD LAB BLOOD ORDERABLES Final Result Performing Organization Address [facility] Phone Number [facility] [address] [place] [address] * Albumin Creatinine Ratio, Urine (10/13/2024 11:55 AM ASSOCIATE DIRECTOR OF SALES) Albumin Ur 34.0 mg/L Comment: Interpretive Data No reference range established. Current interpretive data was last revised 2019. Creatinine Ur 121.2 mg/dL [facility] Comment: Interpretive Data No reference range established. Current interpretive data was last revised 2019. Albumin Creatinine Ratio, Ur 28 1 - 29 mg/g [facility] Urine 10/13/2024 11:5 5 AM ASSOCIATE DIRECTOR OF SALES 10/13/2024 2:51 PM ASSOCIATE DIRECTOR OF SALES Result [facility] Gabo Hawkins MD LAB URINE ORDERABLES Final Result Performing Organization Address [facility] Phone Number [facility] [id number] [place] [address] * (ABNORMAL) Hemoglobin A1c (10/13/2024 11:55 AM ASSOCIATE DIRECTOR OF SALES) Hgb A1C 8.9(H) 4.0 - 5.6 % Estimated Average Glucose 209 mg/dL [facility] Comment: The ADA recommends reporting an estimated Average Glucose (eAG) with all Hemoglobin A1c results using the equation derived from a study of 507 normal and diabetic adults. Minority populations were underrepresented and children were not included. (Diabetes Care 31:8813-9473, 2008). The eAG is not equivalent to a fasting glucose. Blood 10/13/2024 11:5 5 AM ASSOCIATE DIRECTOR OF SALES 10/13/2024 2:51 PM ASSOCIATE DIRECTOR OF SALES us Gabo Hawkins MD LAB BLOOD ORDERABLES Final Result [facility] [id number] [place] [address] * (ABNORMAL) Lipid panel (10/13/2024 11:55 AM ASSOCIATE DIRECTOR OF SALES) Cholesterol 121 30 - 199 mg/dL Comment: [...] on 2018. Triglycerides 119 <=149 mg/dL [facility] Comment: Interpretive Data Ages < or = [...] on 2018. HDL 34(L) >=40 mg/dL [facility] Comment: Interpretive Data Ages < or = [...] 2018. LDL, calculated 65 <=129 mg/dL [facility] Comment: Interpretive Data Ages < or = [...] NCEP Expert Panel. Circulation 2004;110:227 3. Fred Huddleston et al. [place] Cardiol. 2019January 18;5(5):540-548. doi: 10.1001/jamacardio.2020.0013 Current Interpretive Data was last revised on 2024. Non-HDL Cholesterol 87 mg/dL [facility] Comment: Interpretive Data Ages < or = [...] last revised on 2018. Chol/HDL ratio 4 [facility] Blood 10/13/2024 11:5 5 AM ASSOCIATE DIRECTOR OF SALES 10/13/2024 2:51 PM ASSOCIATE DIRECTOR OF SALES us Gabo Hawkins MD LAB BLOOD ORDERABLES Final Result [facility] [id number] [place] [address] * Comprehensive metabolic panel (10/13/2024 11:55 AM ASSOCIATE DIRECTOR OF SALES) Sodium 136 135 - 145 mmol/L Potassium, pl 4.2 3.3 - 4.9 mmol/L [facility] Chloride 97 97 - 110 mmol/L [facility] CO2 29 22 - 32 mmol/L [facility] Anion gap 10 2 - 15 mmol/L [facility] BUN 12 6 - 25 mg/dL [facility] Creatinine 1.10 0.80 - 1.30 mg/dL [facility] Glucose 143 70 - 199 mg/dL [facility] Comment: Interpretive Data Fasting glucose >/= 126 [...] classification and Diagnosis of Diabetes Diabetes Care 2021; 46: S19-S40. Current interpretive data was last [...] [facility] Blood 10/13/2024 11:5 5 AM ASSOCIATE DIRECTOR OF SALES 10/13/2024 2:51 PM ASSOCIATE DIRECTOR OF SALES us Gabo Hawkins MD LAB BLOOD ORDERABLES Final Result [facility] [id number] [place] [address] * PSA screen (05/15/2024 2:30 PM CDT) [...] BLOOD ORDERABLES Final Result Performing Organization Address [facility] de Phone Number [facility] [address] [place] [address] * Hepatitis C antibody Blood (05/15/2024 2:30 [...] - GENERAL ORDERABLES Edited Result - Final Performing Organization Address [facility] Co de Phone Number [facility] [address] [place] [place], [place] [id number] * DIABETES EYE EXAM (12/16/2022) SCRIBED [facility] DIABETIC DILATED EYE EXAM Comment:No Diabetic Retinopa thy us Historical Provider HEALTH MAINTENANCE Final Result * COLONOSCOPY (07/16/2021) us Historical Provider HEALTH MAINTENANCE Final Result from Last 3 Months or Most Recently Relevant to Health Maintenance Insurance BLUE ACC CHOICE OOS ANTHEM ACCESS Care Teams Route Carrier Relationship Specialty Start Date End Date Gabo Hawkins MD [address] [place] [address] PCP - General Family Medicine 10/01/22 Ayush Sweet MD [address] [place] [address] Consulting Physician Cardiology 10/01/22
--- OUTSIDE RECORDS SUMMARY | 2024-12-05 15:12 | XMS_ITS | Clinical Summary ---
Author Organization [facility] [employer] Address [address] [place] [address] Care Team Providers Care Beer Runner Name Role Phone Wil Almeida DO Primary Care Provider + Matty Ramirez MD Unavailable - [phone] Source Comments [facility],non-owned Affiliates and Associated Physician Practices is amultiple site organization consisting of ambulatory clinics and hospital sitesin [place], [place], [place] and [place]. This disclosure is being madepursuant to the Care Everywhere program and may not contain all information available regarding this patient. Last updated 18.[facility] Allergies Active Allergy Reactions Criticality Noted Date Comments Morphine Itching High 03/24/2019 Medications * Be aware that medications may not be up to date on this document. Alwaysverify current medications with the patient. Medication Sig Dispensed Refills Start Date End Date Status blood glucose test stripIndications:Typ e 2 diabetes mellitus without complication, without long-term current use of insulin (HCC) Use 1 strip 2 times daily Contour test strips. 100 strip 5 11/22/2019 Active oseltamivir (TAMIFLU) 75 MG capsuleIndications:V iral syndrome Take 1 capsule by mouth every 12 hours 10 capsule 11/22/2019 Active Additional Information Patient not taking.Reported on 09/02/2020 albuterol HFA (PROVENTIL;VENTOLIN; PROAIR) 108 (90 Base) MCG/ACT inhaler Inhale 2 puffs by mouth every 4 hours as needed 54 g 08/30/2020 Active meloxicam (MOBIC) 7.5 MG tabletIndications:Os teoarthritis Take 1 (one) tablet by mouth once daily stop naproxen Reasons: Joint Damage causing Pain and Loss of Function 90 tablet 10/11/2020 Active ARIPiprazole (ABILIFY) 5 MG tablet Take 1 (one) tablet by mouth once daily 30 tablet 12/27/2020 Active FLUoxetine (PROZAC) 20 MG capsule Take 3 (three) capsules by mouth once daily 270 capsule 03/03/2021 Active metFORMIN (GLUCOPHAGE) 1000 MG tabletIndications:Ty pe 2 diabetes mellitus without complication, without long-term current use of insulin (HCC) Take 1 (one) tablet by mouth 2 times daily 180 tablet 03/03/2021 Active amLODIPine (NORVASC) 10 MG tablet Take 1 (one) tablet by mouth once daily 90 tablet 03/03/2021 Active metoprolol succinate XL 24hr (TOPROL XL) 100 MG tabletIndications:Es sential hypertension TAKE 1 TABLET BY MOUTH ONCE DAILY . APPOINTMENT REQUIRED FOR FUTURE REFILLS 15 tablet 02/28/2021 Active rosuvastatin (CRESTOR) 20 MG tabletIndications:Mi xed hyperlipidemia Take 1 (one) tablet by mouth at bedtime 90 tablet 03/03/2021 Active glimepiride (AMARYL) 2 MG tabletIndications:Ty pe 2 diabetes mellitus without complication, without long-term current use of insulin (HCC) Take 1 (one) tablet by mouth 2 times daily, before breakfast and supper 180 tablet 03/03/2021 Active Active Problems Problem Noted Date Diagnosed Date Coronary artery disease invo lving [place] coronary artery of [place] heart without angina pectoris 03/27/2019 Essential hypertension 03/27/2019 Mixed hyperlipidemia 03/27/2019 Type 2 diabetes mellitus wit hout complication, without long-term current use of insulin 03/27/2019 Sleep disorder 03/27/2019 Immunizations Name Administration Dates Next Due Recognia primary monoval ent 12+ yr 0.3mL Purple cap 01/17/2021,12/26/2020 Family History Medical History Relation Name Comments CAD (Coronary Artery Disease) Father CABG CVA Maternal Grandfather CVA Maternal Grandmother CAD (Coronary Artery Disease) Mother Cancer - Breast Mother Pulmonary Embolism Mother CAD (Coronary Artery Disease) Paternal Grandfather Relation Name Status Comments Father Maternal Grandfather Maternal Grandmother Mother Paternal Grandfather Social History Tobacco Use Types Packs/Day Years Used Date Smoking Tobacco: Never Smokeless Tobacco: Never Tobacco Cessation:Counseling Given: Yes Alcohol Use Standard Drinks/Week Comments Yes 0 (1 standard drink = 0.6 oz pur e alcohol) Sex and Gender Information Value Date Recorded Sex Assigned at Not on file Gender Identity Male 10/11/2019 2:26 PM FILM INSPECTOR Sexual Orientation Not on file Last Filed Vital Signs Vital Sign Reading Time Taken Comments Blood Pressure 140/110 11/22/2019 4:06 PM FILM INSPECTOR Pulse 62 11/22/2019 4:06 PM FILM INSPECTOR Temperature 36.7 C (98.1 F) 11/22/2019 4:06 PM FILM INSPECTOR Respiratory Rate 20 10/31/2019 3:12 PM FILM INSPECTOR Oxygen Saturation 95% 11/22/2019 4:06 PM FILM INSPECTOR Inhaled Oxygen Concentration - - Weight 127.5 kg (281 lb) 11/22/2019 4:06 PM FILM INSPECTOR Height 182.9 cm (6') 09/02/2020 9:33 AM FILM INSPECTOR Body Mass Index 38.11 11/22/2019 4:06 PM FILM INSPECTOR Plan of Treatment Health Maintenance Due Date Last Done Comments COLOGUARD (AGES 45-75) - COLON CA SCREENING 1968 COLON MONITORING 1968 COLONOSCOPY - COLON CA SCREENING 1968 CT COLONOGRAPHY - COLON CA SCREENING 1968 Colorectal Cancer Screening 1968 FIT - COLON CA SCREENING 1968 FLEX SIG - COLON CA SCREENING 1968 HIV SCREENING 1983 HEPATITIS C SCREENING 06/14/1986 DTAP/TDAP/TD VACCINES (1 - Tdap) 1987 HEPATITIS B VACCINE (1 of 3 - 19+ 3-dose series) 1987 PNEUMOCOCCAL VACCINE 50+ (1 of 2 - PCV) 1987 ZOSTER VACCINE (1 of 2) 2018 DIABETES RETINOPATHY SCREENING 03/27/2019 DIABETES-HGB A1C 02/22/2020 11/22/2019, 04/2019, 01/07/2019 DIABETES-FOOT EXAM WITH MONOFILAMENT 03/27/2020 03/27/2019 DIABETES-SERUM CREATININE 10/11/20202019, 03/24/2019, 01/14/2019, Additional history exists COVID-19 VACCINE (3 - 2023- season) 2024 01/17/2021, 12/26/2020 INFLUENZA VACCINE (#1) 2024 DEPRESSION SCREENING 09/20/2024 DIABETES - URINE PROTEIN SCREENING 09/20/2024 HIB VACCINE Aged Out No longer eligi ble based on patient's age to complete this topic HPV VACCINE Aged Out No longer eligi ble based on patient's age to complete this topic MENINGOCOCCAL (Group B) VACCINE SHARED DECISION-MAKING Aged Out No longer eligible based on patient's age to complete this topic MENINGOCOCCAL GROUPS A/C/Y/W VACCINE Aged Out No longer eligible based on patient's age to complete this topic Procedures Procedure Name Priority Date/Time Associated Diagnosis Comments HEMOGLOBIN A1C - POINT OF CARE (AMB) Routine 11/22/2019 Type 2 diabetes mellitus without complication, without long-term current use of insulin (HCC) COMPREHENSIVE METABOLIC PANEL STAT 10/11/2019 12:54 AM FILM INSPECTOR from Last 3 Months or Most Recently Relevant to Health Maintenance Results * HEMOGLOBIN A1C - POINT OF CARE (HgbA1C) (11/22/2019) Pathologist [facility] Hemoglobin A1c POCT 10.4 % Expiration Date 08/01/2021 Lot # [id number] QC Verified Yes Yes Blood BLOOD SPECIMEN / Unknown 11/22/2019 Wil VJohnyn Almeida DO LAB - POINT OF C ARE ORDERABLES * (ABNORMAL) COMPREHENSIVE METABOLIC PANEL (10/11/2019 12:54 AM FILM INSPECTOR) Glucose 321(H) 70 - 105 mg/dL 10/11/2019 1:39 AM [facility] Sodium 135(L) 136 - 145 mmol/L 10/11/2019 1:39 AM [facility] Potassium 3.6 3.5 - 5.1 mmol/L 10/11/2019 1:39 AM [facility] Chloride 98 98 - 107 mmol/L 10/11/2019 1:39 AM [facility] CO2 21(L) 23 - 31 mmol/L 10/11/2019 1:39 AM [facility] Calcium 9.8 8.4 - 10.4 mg/dL 10/11/2019 1:39 AM [facility] Anion Gap 16 8 - 16 mmol/L 10/11/2019 1:39 AM FILM INSPECTOR [facility] BUN 10 8.4 - 25.7 mg/dL 10/11/2019 1:39 AM [facility] Creatinine 1.23 0.72 - 1.25 mg/dL 10/11/2019 1:39 AM [facility] Alkaline Phosphatase 91 40 - 150 U/L 10/11/2019 1:39 AM [facility] ALT 31 0 - 61 U/L 10/11/2019 1:39 AM [facility] AST 29 5 - 34 U/L 10/11/2019 1:39 AM [facility] Protein Total 7.7 6.4 - 8.3 gm/dL 10/11/2019 1:39 AM [facility] Albumin 4.3 3.5 - 5.2 gm/dL 10/11/2019 1:39 AM [facility] Bilirubin Total 0.4 0.2 - 1.2 mg/dL 10/11/2019 1:39 AM [facility] eGFR by MDRD >60 >60 mL/min/1.7 3m2 10/11/2019 1:39 AM [facility] eGFR by MDRD >60 >60 mL/min/1.7 3m2 10/11/2019 1:39 AM [facility] Blood BLOOD SPECIMEN / Unknown Venipuncture / Unknown 10/11/2019 12:54 AM FILM INSPECTOR 10/11/2019 1:16 AM FILM INSPECTOR Richy Almazan MD LAB [facility] Organization Address City/State/ZIP Co de Phone Number [facility] [address] [place] [address] from Last 3 Months or Most Recently Relevant to Health Maintenance Care Teams Beer Runner Relationship Specialty Start Date End Date Wil Almeida DO [address] [facility] [address] [place] [address] PCP - General Family Medicine 03/24/19 Matty Ramirez MD [address] [place] [address] [phone] (Work) Cardiovascular Disease 11/22/19
--- NOTE | 2024-12-06 09:43 | WPDPFTINT ---
PFT Procedure Performed PFT Procedure Performed Spirometry with Pre/Post Bronchodilator Plethysmography (Lung Vol) Diffusing Cap (DLCO) Flow Vol Loop PFT Interpretation Lung volumes were measured with the body plethysmography method. The diminished expiratory reserve volume is related to obesity. The remaining lung volumes are unremarkable. Spirometry showed normal expiratory flow rates and a normal FEV1 to FVC ratio 74%. Following administration of a bronchodilator there was no significant increase in expiratory flow rates. Lung diffusion capacity is within the normal range at 83% predicted. The flow-volume loop is unremarkable. Impression: Spirometry, lung volumes, and lung diffusion capacity all within the normal range.
== END 2024-12-05 13:33 | disposition home or self-care (01) ==
PROVIDERS: PCP Family Medicine; Visit Provider Nurse Practitioner Family
DX: J45.909 Unspecified asthma, uncomplicated (principal)
CPT/HCPCS: 94060; 94726; 94729

== ENCOUNTER 2024-12-20 12:43 | Outpatient (CLI) | payer BC, SELFPAY ==
--- OUTSIDE RECORDS SUMMARY | 2024-12-20 14:09 | XMS_ITS | Encounter Summary ---
Author Organization [facility] Healthcare Address [address] [place] [address] Care Team Providers Care Director Stage Name Role Phone Gabo Hawkins MD Primary Care Provider Ayush Sweet MD Unavailable [phone] Encounter Details Date Type Department Care Team (Late st Contact Info) Description 12/04/2024 Results Follow-Up [facility] Primary Care at [address] [address] Terri Alejo, APPLICATIONS SUPPORT ANALYST [address] [place] [address] [address] [place] [address] Social History Tobacco Use Types [...] on filedocumented in this encounter Care Teams Director Stage Relationship Specialty Start Date End Date Gabo Hawkins MD [address] [place] [address] PCP - General Family Medicine 10/01/22 Ayush Sweet MD [address] [place] [address] Consulting Physician Cardiology 10/01/22 documented as of this encounter
--- OUTSIDE RECORDS SUMMARY | 2024-12-20 14:09 | XMS_ITS | Encounter Summary ---
Author Organization [facility] Address [address] [facility] [facility] [place] [address] Care Team Providers Care Van Helper Name Role Phone Wil Almeida DO Primary Care Provider + Matty Ramirez MD Unavailable - [phone] Wil Almeida DO Unavailable [phone] Reason for Visit * Reason Onset Date Comments MEDICATION REFILL 08/28/2020 Encounter Details Date Type Department Care Team (Late st Contact Info) Description 08/28/2020 Refill [facility] - Internal Medicine [address] [address] Wil Almeida DO [address] [address] MEDICATION REFILL Social History Tobacco Use Types Packs/Day Years Used Date Smoking Tobacco: Never Smokeless Tobacco: Never Alcohol Use Standard Drinks/Week Comments Yes 0 (1 standard drink = 0.6 oz pur e alcohol) Sex and Gender Information Value Date Recorded Sex Assigned at Not on file Gender Identity Male 10/11/2019 2:26 PM GAMING DEPARTMENT HEAD Sexual Orientation Not on file COVID-19 Exposure Response Date Recorded In the last month, have you been in contact with someone who was confirmed or suspected to have Coronavirus / COVID-19? No / Unsure 08/28/2020 4:19 PM GAMING DEPARTMENT HEAD documented as of this encounter Miscellaneous Notes * Telephone Encounter - Cady Morrissey - 09/05/2020 10:30 AM CST My chart message sent to schedule appointment. NG DEPARTMENT HEAD * Telephone Encounter - Corrina Josue RN [...] 01/08/2020 for .check on new medication- amaryl NG DEPARTMENT HEAD * Telephone Encounter - Agnieszka Luna - [...] transfer to the clinic for further review) NG DEPARTMENT HEAD documented in this encounter Plan of Treatment Not on file documented as of this encounter Visit Diagnoses Not on filedocumented in this encounter Care Teams Van Helper Relationship Specialty Start Date End Date Wil Almeida DO [address] [facility] [address] [place] [address] PCP - General Family Medicine 03/24/19 Wil Almeida DO [address] [facility] [address] [place] [id number] PCP - Attributed-[place] [employer] 06/20/20 02/05/21 Matty Ramirez MD [address] [place] [address] [phone] (Work) Cardiovascular Disease 11/22/19 documented as of this encounter
--- OUTSIDE RECORDS SUMMARY | 2024-12-20 14:09 | XMS_ITS | Clinical Summary ---
Author Organization [facility] Address [address] [place] [address] Phone Care Team Providers Care Card Runner Name Role Phone Gabo Hawkins MD Primary Care Provider Auysh Sweet MD Unavailable [phone] Allergies Active Allergy Reactions Criticality Noted Date [...] with meals 180 tablet 3 023 Active FLUoxetine (PROzac) 20 mg capsuleIndication s:MONICA [...] daily Med Name: Hawk Testosterone Support (Kava, ashingagandha, copper, zinc, magnesium, vitamin D3, rc) Active [...] 1 TABLET (14 MG TOTAL) BY MOUTH CAMPAIGN ASSOCIATE BEFORE BREAKFAST 90 tablet 025 Active ezetimibe (ZETIA) 10 mg tablet Take 1 tablet (10 mg total) by mouth daily 90 tablet 025 2025 Active hydroCHLOROthiazi de (HYDRODIURIL) 25 mg tablet Take 1 tablet (25 mg total) by mouth daily 90 tablet 025 Active hydroCHLOROthiazi de (HYDRODIURIL) 25 mg tablet TAKE 1 TABLET BY MOUTH EVERY DAY 90 tablet 3 024 2024 Discontinued(R eorder) ezetimibe (ZETIA) 10 mg tablet Take 1 tablet (10 mg total) by mouth daily 30 tablet 11 024 2024 Discontinued(R eorder) losartan (COZAAR) 100 mg tablet TAKE 1 TABLET BY MOUTH EVERY DAY 90 tablet 2 024 2024 Discontinued semaglutide (Rybelsus) 14 mg tabletIndications :Mixed diabetic hyperlipidemia associated with type 2 diabetes mellitus (HCC) TAKE 1 TABLET (14 MG TOTAL) BY MOUTH CAMPAIGN ASSOCIATE BEFORE BREAKFAST 100 tablet 1 024 2024 Discontinued Active Problems Problem Noted Date Diagnosed Date Acute pain of left knee 11/30/2024 Right hip pain 11/30/2024 Severe obesity 10/13/2024 Assessment & Plan (10/13/2024 11:40 AM CHUTE LOADER): BMI Follow-up includes: nutrition counseling, exercise counseling, and education provided. Coronary artery disease of n ative artery of [place] heart with stable angina pectoris 02/10/2024 Palpitations 09/28/2023 Disc degeneration, lumbar 12/08/2022 Foot drop, right 12/08/2022 Spondylosis of lumbar region without myelopathy or radiculopathy 12/08/2022 DANITA (obstructive sleep apnea) 11/20/2022 Medication side effects 11/20/2022 Lumbar radiculopathy 10/29/2022 Hx of CABG 10/06/2022 Encounter for medical examination to establish c are 10/02/2022 Assessment & Plan (10/02/2022 4:16 PM CHUTE LOADER): A(n) initial well visit to establish care [...] first Want to get MRI records from [facility]; will need a release Pulmonary function test [...] abuse 07/07/2022 Coronary artery disease invo lving [place] coronary artery of [place] heart without angina pectoris 07/07/2022 Mixed diabetic [...] up. Assessment & Plan (10/30/2022 5:01 PM CHUTE LOADER): A1c, microalbuminuria pending Metformin will continue pending result of a1c BP improved, will continue losartan at current dose Moderate episode of recurrent major depressive d isorder 07/07/2022 MONICA (generalized anxiety disorder) 07/07/2022 Sleep disorder 03/27/2019 Resolved Problems Problem Noted Date Diagnosed Date Resolved Date Mixed hyperlipidemia 03/27/2019 023 Encounters Date Type Department Care Team Description 12/04/2024 Results Follow-Up [facility] Primary Care at [address] [phone] Terri Alejo NP 11/30/2024 9:30 AM CDT Ancillary Procedure [facility] Medical [facility] Imaging at [address] [phone] Acute pain of left knee 11/30/2024 9:15 AM CDT Ancillary Procedure [facility] Imaging at [address] [phone] Lumbar radiculopathy 11/30/2024 9:00 AM CDT Office Visit [facility] Primary Care at [address] [phone] Terri Alejo NP Lumbar radiculopathy (Primary Dx); Acute pain of left knee; Right hip pain 11/29/2024 Nurse Triage [facility] Primary Care at [address] [phone] Gabo Hawkins MD 11/17/2024 Telephone [facility] Primary Care at [address] [phone] Emilia Lovelace MA 10/14/2024 Orders Only [facility] Primary Care at [address] [phone] Gabo Hawkins MD Hypertension associated with diabetes (HCC) (Primary Dx); Iron deficiency anemia, unspecified iron deficiency anemia type 10/13/2024 12:00 PM CHUTE LOADER Lab [facility] Outpatient Lab at [address] [phone] Hypertension associated with diabetes (HCC) (Primary Dx) 10/13/2024 11:55 AM CHUTE LOADER - 10/13/2024 11:59 PM CHUTE LOADER Hospital Encounter [address] [address] Hypertension associated with diabetes (HCC) Discharge Disposition: Discharge to home or self care 10/13/2024 11:30 AM CHUTE LOADER Office Visit [facility] Primary Care at [address] [phone] Gabo Hawkins MD Hypertension associated with diabetes (HCC) (Primary Dx); Encounter for administration of vaccine; Severe obesity (HCC); Moderate episode of recurrent major depressive disorder (HCC); Type 2 diabetes mellitus with stage 3a chronic kidney disease, without long-term current use of insulin (HCC) from Last 3 Months Immunizations Immunization Administration [...] AL W/ HARVEST UPPER EXTREMITY VEIN [facility] CORONARY ARTERY BYPASS GRAFT 2018 [...] Rocio W Quijano Cervical cancer Mother Rocio W Quijano Clotting disorder Mother Rocio W Quijano Early Mother Rocio W Quijano Heart [...] Dilated Eye Exam 12/17/2023 12/16/2022 Covid-19 Vaccine ( season) 2024 01/17/2021, 12/26/2020, 12/24/2020 Zoster Vaccine [...] left knee EGFR Routine 10/13/2024 11:55 AM CHUTE LOADER Hypertension associated with diabetes (HCC) DIFFERENTIAL AUTO Routine 10/13/2024 11:55 AM CHUTE LOADER Hypertension associated with diabetes (HCC) ALBUMIN CREATININE RATIO, URINE Routine 10/13/2024 11:55 AM CHUTE LOADER Hypertension associated with diabetes (HCC) LIPID PANEL Routine 10/13/2024 11:55 AM CHUTE LOADER Hypertension associated with diabetes (HCC) HEMOGLOBIN A1C Routine 10/13/2024 11:55 AM CHUTE LOADER Hypertension associated with diabetes (HCC) COMPREHENSIVE METABOLIC PANEL Routine 10/13/2024 11:55 AM CHUTE LOADER Hypertension associated with diabetes (HCC) CBC WITH AUTO DIFFERENTIAL Routine 10/13/2024 11:55 AM CHUTE LOADER Hypertension associated with diabetes (HCC) HEPATITIS C [...] knee or the lower back. History of Capulin-Schlatter's. FINDINGS: Four views lumbar spine and three [...] by Valdo Evans M.D. T: Report ID: [id number] Reading Location: [place] [address] Procedure Note Valdo Evans MD - 12/01/2024 EXAM DESCRIPTION: XR SPINE LUMBAR 4 OR MORE VIEWS; XR KNEE LEFT 3 VIEWS REASON FOR STUDY: exacerbation of lumbar spine acute left knee pain Lower back pain with radiculopathy and left knee pain since Wednesday. [place] injury. No prior surgery to the knee or the lower back. History of Capulin-Schlatter's. FINDINGS: Four views lumbar spine and three [...] by Valdo Evans M.D. T: Report ID: [id number] Reading Location: [place] [address] Terri Alejo NP IMG XR PROCEDURES Final [...] knee or the lower back. History of Capulin-Schlatter's. FINDINGS: Four views lumbar spine and three [...] by Valdo Evans M.D. T: Report ID: [id number] Reading Location: [place] [address] Procedure Note Valdo Evans MD - 12/01/2024 [...] by Valdo Evans M.D. T: Report ID: [id number] Reading Location: [place] [address] Terri Alejo EMERGENCY ROOM NURSE IMG XR PROCEDURES Final Resul t * eGFR (10/13/2024 11:55 AM CHUTE LOADER) eGFR 79 >=60 mL/min/1. 73 m2 Comment: [...] reviewed 2021. Blood 10/13/2024 11:5 5 AM CHUTE LOADER 10/13/2024 3:00 PM CHUTE LOADER Gabo Hawkins MD LAB BLOOD ORDERAB[place] [id number] [address] Department [place] [address] * (ABNORMAL) Differential, auto (10/13/2024 11:55 AM CHUTE LOADER) Neutrophil abs 9.3(H) 1.5 - 6.5 K/cumm Imm gran abs 0.1 0.0 - 0.1 K/cumm [facility] Lymphocyte abs 2.0 0.8 - 3.3 K/cumm [facility] Monocyte abs 0.8 0.2 - 0.8 K/cumm [facility] Eosinophil abs 0.3 0.0 - 0.5 K/cumm [facility] Basophil abs 0.1 0.0 - 0.1 K/cumm [facility] Neutrophil pct 74.3 % [facility] Comment: Interpretive Data Percent cell count reference ranges are not reported, since discordance with absolute values may lead to misinterpretation of CBC data. Current Interpretive Data was last revised on 2017. Imm gran pct 0.4 % [facility] Comment: Interpretive Data Percent cell count reference ranges are not reported, since discordance with absolute values may lead to misinterpretation of CBC data. Current Interpretive Data was last revised on 2017. Lymphocyte pct 15.8 % [facility] Comment: Interpretive Data Percent cell count reference ranges are not reported, since discordance with absolute values may lead to misinterpretation of CBC data. Current Interpretive Data was last revised on 2017. Monocyte pct 6.3 % [facility] Comment: Interpretive Data Percent cell count reference ranges are not reported, since discordance with absolute values may lead to misinterpretation of CBC data. Current Interpretive Data was last revised on 2017. Eosinophil pct 2.6 % [facility] Comment: Interpretive Data Percent cell count reference ranges are not reported, since discordance with absolute values may lead to misinterpretation of CBC data. Current Interpretive Data was last revised on 2017. Basophil pct 0.6 % [facility] Comment: Interpretive Data Percent cell count reference ranges are not reported, since discordance with absolute values may lead to misinterpretation of CBC data. Current Interpretive Data was last revised on 2017. Blood 10/13/2024 11:5 5 AM CHUTE LOADER 10/13/2024 2:51 PM CHUTE LOADER us Gabo Hawkins MD LAB BLOOD ORDERABLES Final Result Performing Organization Address [facility] Co de Phone Number PAT PAREDES [phone] [address] Department of Laboratories [place], [place] [id number] * (ABNORMAL) CBC with auto differential (10/13/2024 11:55 AM CHUTE LOADER) Pathologist [facility] WBC 12.6(H) 3.8 - 9.9 K/cumm Hgb 11.7(L) 13.0 - 17.5 g/dL [facility] Hct 38.7(L) 38.9 - 50.3 % [facility] Plt 369 150 - 400 K/cumm [facility] CH MPV 10.5 9.1 - 12.3 fL [facility] RBC 4.91 4.30 - 5.80 M/cumm [facility] CH MCV 78.8(L) 81.3 - 96.4 fL [facility] MCH 23.8(L) 27.1 - 33.3 pg [facility] MCHC 30.2(L) 32.3 - 35.7 g/dL [facility] CH RDW CV 15.7(H) 11.1 - 14.9 % [facility] RDW SD 45.1 35.7 - 48.1 fL [facility] NRBC abs 0.00 0.00 - 0.01 K/cumm [facility] Blood 10/13/2024 11:5 5 AM CHUTE LOADER 10/13/2024 2:51 PM CHUTE LOADER Gabo Hawkins MD LAB BLOOD ORDERABLES Final Result Performing Organization Address [facility] Co de Phone Number PAT PAREDES [phone] [address] Department [place] [address] * Albumin Creatinine Ratio, Urine (10/13/2024 11:55 AM CHUTE LOADER) Pathologist [facility] Albumin Ur 34.0 mg/L Comment: Interpretive Data No reference range established. Current interpretive data was last revised 2019. Creatinine Ur 121.2 mg/dL [facility] Comment: Interpretive Data No reference range established. Current interpretive data was last revised 2019. Albumin Creatinine Ratio, Ur 28 1 - 29 mg/g [facility] Urine 10/13/2024 11:5 5 AM CHUTE LOADER 10/13/2024 2:51 PM CHUTE LOADER Gabo Hawkins MD LAB URINE ORDERABLES Final Result Performing Organization Address [facility] de Phone Number PAT [phone] [facility] [place] [address] * (ABNORMAL) Hemoglobin A1c (10/13/2024 11:55 AM CHUTE LOADER) Hgb A1C 8.9(H) 4.0 - 5.6 % Estimated Average Glucose 209 mg/dL PAT PAREDES Comment: The ADA recommends reporting an estimated Average Glucose (eAG) with all Hemoglobin A1c results using the equation derived from a study of 507 normal and diabetic adults. Minority populations were underrepresented and children were not included. (Diabetes Care 31:3852-5800, 2008). The eAG is not equivalent to a fasting glucose. Blood 10/13/2024 11:5 5 AM CHUTE LOADER 10/13/2024 2:51 PM CHUTE LOADER Gabo Hawkins MD LAB BLOOD ORDERABLES Final Result Performing Organization Address [facility] de Phone Number PAT [phone] [facility] [place] [address] * (ABNORMAL) Lipid panel (10/13/2024 11:55 AM CHUTE LOADER) Cholesterol 121 30 - 199 mg/dL Comment: [...] mg/dL High: >160 mg/dL Calculated using the Ferd LDL-C estimating equation. This equation was implemented on 2024. Prior to this date LDL-C was estimated using the Friedewald equation. Literature References: 1. Expert Panel on Integrated Guidelines for Cardiovascular Health and Risk Reduction in Children and Adolescents. Pediatrics 2011;128:S213 2. NCEP Expert Panel. Circulation 2004;110:227 3. Fred Carreno al. [place] Cardiol. 2019January 18;5(5):540-548. doi: 10.1001/jamacardio.2020.0013 Current Interpretive Data was last revised on 2024. Non-HDL Cholesterol 87 mg/dL [facility] Comment: Interpretive Data Ages < or = [...] last revised on 2018. Chol/HDL ratio 4 [facility] Blood 10/13/2024 11:5 5 AM CHUTE LOADER 10/13/2024 2:51 PM CHUTE LOADER us Gabo Hawkins MD LAB BLOOD ORDERABLES Final Result Performing Organization Address City/State/[facility] Co nd Phone Number [facility] [phone] [address] Department [place] [address] * Comprehensive metabolic panel (10/13/2024 11:55 AM CHUTE LOADER) Sodium 136 135 - 145 mmol/L Potassium, pl 4.2 3.3 - 4.9 mmol/L [facility] Chloride 97 97 - 110 mmol/L [facility] CO2 29 22 - 32 mmol/L [facility] Anion gap 10 2 - 15 mmol/L [facility] BUN 12 6 - 25 mg/dL [facility] Creatinine 1.10 0.80 - 1.30 mg/dL [facility] Glucose 143 70 - 199 mg/dL [facility] Comment: Interpretive Data Fasting glucose >/= 126 [...] [facility] CH Blood 10/13/2024 11:5 5 AM CHUTE LOADER 10/13/2024 2:51 PM CHUTE LOADER Gabo Hawkins MD LAB BLOOD ORDERABLES Final Result Performing Organization Address [facility] Phone Number [facility] [phone] [address] [employer] [address] * PSA screen (05/15/2024 2:30 [...] BLOOD ORDERABLES Final Result Performing Organization Address [facility] Co nd Phone Number [facility] [phone] [facility] [place] [address] * Hepatitis C antibody Blood [...] GENERAL ORDERABLES Edited Result - Final PAT PAREDES [address] [address] Department [place] [address] * DIABETES EYE EXAM (12/16/2022) SCRIBED DIABETIC DILATED EYE EXAM Comment:No Diabetic Retinopa thy Historical Provider HEALTH MAINTENANCE Final Result * COLONOSCOPY (07/16/2021) Historical Provider HEALTH MAINTENANCE Final Result from Last 3 Months or Most Recently Relevant to Health Maintenance Insurance BLUE [employer] CHOICE OOS [facility] Care Teams Card Runner Relationship Specialty Start Date End Date Gabo Hawkins MD [address] [place] [address] PCP - General Family Medicine 10/01/22 Ayush Sweet MD [address] [place] [address] Consulting Physician Cardiology 10/01/22
--- OUTSIDE RECORDS SUMMARY | 2024-12-20 14:09 | XMS_ITS | Clinical Summary ---
Author Organization [facility] Address [address] [place] [address] Care Team Providers Care Senior Project Accountant Name Role Phone Wil Almeida DO Primary Care Provider + Matty Ramirez MD Unavailable - [phone] Source Comments [facility],non-owned Affiliates and Associated Physician Practices is amultiple site organization consisting of ambulatory clinics and hospital sitesin [place], [place] and [place]. This disclosure is being madepursuant to the Care Everywhere program and may not contain all information available regarding this patient. Last updated 18.[facility] Allergies Active Allergy Reactions Criticality Noted Date [...] Diagnosed Date Coronary artery disease invo lving [place] coronary artery of [place] heart without angina pectoris 03/27/2019 Essential hypertension 03/27/2019 Mixed hyperlipidemia 03/27/2019 Type 2 diabetes mellitus wit hout complication, without long-term current use of insulin 03/27/2019 Sleep disorder 03/27/2019 Immunizations Name Administration Dates Next Due [employer] primary monoval ent 12+ yr 0.3mL Purple [...] file Gender Identity Male 10/11/2019 2:26 PM BUSINESS SERVICES CLERK Sexual Orientation Not on file Last Filed Vital Signs Vital Sign Reading Time Taken Comments Blood Pressure 140/110 11/22/2019 4:06 PM BUSINESS SERVICES CLERK Pulse 62 11/22/2019 4:06 PM BUSINESS SERVICES CLERK Temperature 36.7 C (98.1 F) 11/22/2019 4:06 PM BUSINESS SERVICES CLERK Respiratory Rate 20 10/31/2019 3:12 PM BUSINESS SERVICES CLERK Oxygen Saturation 95% 11/22/2019 4:06 PM BUSINESS SERVICES CLERK Inhaled Oxygen Concentration - - Weight 127.5 kg (281 lb) 11/22/2019 4:06 PM BUSINESS SERVICES CLERK Height 182.9 cm (6') 09/02/2020 9:33 AM BUSINESS SERVICES CLERK Body Mass Index 38.11 11/22/2019 4:06 PM BUSINESS SERVICES CLERK Plan of Treatment Health Maintenance Due Date [...] complication, without long-term current use of insulin COMPREHENSIVE METABOLIC PANEL STAT 10/11/2019 12:54 AM BUSINESS SERVICES CLERK from Last 3 Months or Most Recently Relevant to Health Maintenance Results * HEMOGLOBIN A1C - POINT OF CARE (HgbA1C) (11/22/2019) Pathologist [facility] Hemoglobin A1c POCT 10.4 % Expiration Date 08/01/2021 Lot # [id number] QC Verified Yes Yes Blood BLOOD SPECIMEN / Unknown 11/22/2019 Wil Almeida DO LAB - POINT OF C ARE ORDERABLES * (ABNORMAL) COMPREHENSIVE METABOLIC PANEL (10/11/2019 12:54 AM BUSINESS SERVICES CLERK) Glucose 321(H) 70 - 105 mg/dL 10/11/2019 1:39 AM [facility] Sodium 135(L) 136 - 145 mmol/L 10/11/2019 1:39 AM BUSINESS SERVICES CLERK [facility] Potassium 3.6 3.5 - 5.1 mmol/L 10/11/2019 1:39 AM [facility] Chloride 98 98 - 107 mmol/L 10/11/2019 1:39 AM [facility] CO2 21(L) 23 - 31 mmol/L 10/11/2019 1:39 AM [facility] Calcium 9.8 8.4 - 10.4 mg/dL 10/11/2019 1:39 AM [facility] Anion Gap 16 8 - 16 mmol/L 10/11/2019 1:39 AM [facility] BUN 10 8.4 - 25.7 mg/dL 10/11/2019 1:39 AM [facility] Creatinine 1.23 0.72 - 1.25 mg/dL 10/11/2019 1:39 AM [facility] Alkaline Phosphatase 91 40 - 150 U/L 10/11/2019 1:39 AM [facility] ALT 31 0 - 61 U/L 10/11/2019 1:39 AM [facility] AST 29 5 - 34 U/L 10/11/2019 1:39 AM [facility] Protein Total 7.7 6.4 - 8.3 gm/dL 10/11/2019 1:39 AM [facility] Albumin 4.3 3.5 - 5.2 gm/dL 10/11/2019 1:39 AM [facility] Bilirubin Total 0.4 0.2 - 1.2 mg/dL 10/11/2019 1:39 AM [facility] eGFR by MDRD >60 >60 mL/min/1.7 3m2 10/11/2019 1:39 AM [facility] eGFR by MDRD >60 >60 mL/min/1.7 3m2 10/11/2019 1:39 AM [facility] Blood BLOOD SPECIMEN / Unknown Venipuncture / Unknown 10/11/2019 12:54 AM BUSINESS SERVICES CLERK 10/11/2019 1:16 AM BUSINESS SERVICES CLERK Richy Almazan MD LAB - CHEMISTRY [facility] Organization Address City/State/ZIP Co de Phone Number [facility] [address] [place] [address] from Last 3 Months or Most Recently Relevant to Health Maintenance Care Teams Senior Project Accountant Relationship Specialty Start Date End Date Wil Almeida DO [address] [facility] [address] [place] [address] PCP - General Family Medicine 03/24/19 Matty Ramirez MD [address] [place] [address] [phone] (Work) Cardiovascular Disease 11/22/19
--- OUTSIDE RECORDS SUMMARY | 2024-12-20 14:09 | XMS_ITS | Referral Summary ---
Author Organization [facility] Address [address] [place] [address] Phone Care Team Providers Care Sales Training Manager Name Role Phone Gabo Hawkins MD Primary Care Provider Ayush Sweet MD Unavailable [phone] Encounters Date Type Department Care Team Description 12/04/2024 Results Follow-Up [facility] Primary Care at [address] [phone] Terri Alejo NP 11/30/2024 9:15 AM CDT Ancillary Procedure [facility] Imaging at [address] [phone] Lumbar radiculopathy 11/30/2024 9:30 AM CDT Ancillary Procedure [facility] Imaging at [address] [phone] Acute pain of left knee 11/30/2024 9:00 AM CDT Office Visit [facility] Primary Care at [address] [phone] Alejo, Terri A., EXTRUSION DIE COORDINATOR Lumbar radiculopathy (Primary Dx); Acute pain of left knee; Right hip pain 11/29/[address] [facility] Primary Care at [address] [phone] Gabo Hawkins MD 11/17/[address] [facility] Primary Care at [address] [phone] Emilia Lovelace MA 10/14/[address] [facility] Primary Care at [address] [phone] Gabo Hawkins MD Hypertension associated with diabetes (HCC) (Primary Dx); Iron deficiency anemia, unspecified iron deficiency anemia type 10/13/2024 11:55 AM HOISTING ENGINEER - 10/13/2024 11:59 PM HOISTING ENGINEER Hospital Encounter [address] [address] Hypertension associated with diabetes (HCC) Discharge Disposition: Discharge to home or self care 10/13/2024 12:00 PM HOISTING ENGINEER Lab [facility] Outpatient Lab at [address] [phone] Hypertension associated with diabetes (HCC) (Primary Dx) 10/13/2024 11:30 AM HOISTING ENGINEER Office Visit [facility] Primary Care at [address] [phone] Gabo Hawkins MD Hypertension associated with diabetes (HCC) (Primary Dx); Encounter for administration of vaccine; Severe obesity (HCC); Moderate episode of recurrent major depressive disorder (HCC); Type 2 diabetes mellitus with stage 3a chronic kidney disease, without long-term current use of insulin (HCC) from Last 3 Months Allergies Active Allergy [...] 25 mg tabletIndications :Hypertension associated with diabetes ([facility]) TAKE 1 TABLET (25 MG TOTAL) BY [...] mouth daily Med Name: Hawk Testosterone Support (Talonva, antona, copper, zinc, magnesium, vitamin D3, rc) Active [...] 1 TABLET (14 MG TOTAL) BY MOUTH SUPERVISOR ELEMENTARY EDUCATION BEFORE BREAKFAST 90 tablet Active ezetimibe (ZETIA) [...] 1 TABLET (14 MG TOTAL) BY MOUTH SUPERVISOR ELEMENTARY EDUCATION BEFORE BREAKFAST 100 tablet 1 024 2024 Discontinued Active Problems Problem Noted Date Diagnosed Date Acute pain of left knee 11/30/2024 Right hip pain 11/30/2024 Severe obesity 10/13/2024 Assessment & Plan (10/13/2024 11:40 AM HOISTING ENGINEER): BMI Follow-up includes: nutrition counseling, exercise counseling, and education provided. Coronary artery disease of n ative artery of [place] heart with stable angina pectoris 02/10/2024 Palpitations 09/28/2023 Disc degeneration, lumbar 12/08/2022 Foot drop, right 12/08/2022 Spondylosis of lumbar region without myelopathy or radiculopathy 12/08/2022 DANITA (obstructive sleep apnea) 11/20/2022 Medication side effects 11/20/2022 Lumbar radiculopathy 10/29/2022 Hx of CABG 10/06/2022 Encounter for medical examination to establish c are 10/02/2022 Assessment & Plan (10/02/2022 4:16 PM HOISTING ENGINEER): A(n) initial well visit to establish care [...] first Want to get MRI records from [place]; will need a release Pulmonary function test [...] abuse 07/07/2022 Coronary artery disease invo lving [place] coronary artery of [place] heart without angina pectoris 07/07/2022 Mixed diabetic [...] up. Assessment & Plan (10/30/2022 5:01 PM HOISTING ENGINEER): A1c, microalbuminuria pending Metformin will continue pending [...] left knee EGFR Routine 10/13/2024 11:55 AM HOISTING ENGINEER Hypertension associated with diabetes (HCC) DIFFERENTIAL AUTO Routine 10/13/2024 11:55 AM HOISTING ENGINEER Hypertension associated with diabetes (HCC) ALBUMIN CREATININE RATIO, URINE Routine 10/13/2024 11:55 AM HOISTING ENGINEER Hypertension associated with diabetes (HCC) LIPID PANEL Routine 10/13/2024 11:55 AM HOISTING ENGINEER Hypertension associated with diabetes (HCC) HEMOGLOBIN A1C Routine 10/13/2024 11:55 AM HOISTING ENGINEER Hypertension associated with diabetes (HCC) COMPREHENSIVE METABOLIC PANEL Routine 10/13/2024 11:55 AM HOISTING ENGINEER Hypertension associated with diabetes (HCC) CBC WITH AUTO DIFFERENTIAL Routine 10/13/2024 11:55 AM HOISTING ENGINEER Hypertension associated with diabetes (HCC) HEPATITIS C [...] knee or the lower back. History of [place]'s. FINDINGS: Four views lumbar spine and three [...] by Valdo Evans M.D. T: Report ID: [id number] Reading Location: [id number] Procedure Note Valdo Evans MD - 12/01/2024 [...] by Valdo Evans M.D. T: Report ID: [id number] Reading Location: [place] [address] Terri Alejo NP IMG XR PROCEDURES Final [...] knee or the lower back. History of [place]'s. FINDINGS: Four views lumbar spine and three [...] by Valdo Evans M.D. T: Report ID: [id number] Reading Location: [place] [address] Procedure Note Valdo Evans MD - 12/01/2024 EXAM DESCRIPTION: XR SPINE LUMBAR 4 OR MORE VIEWS; XR KNEE LEFT 3 VIEWS REASON FOR STUDY: exacerbation of lumbar spine acute left knee pain Lower back pain with radiculopathy and left knee pain since Wednesday. [place] injury. No prior surgery to the knee or the lower back. History of [place]'s. FINDINGS: Four views lumbar spine and three [...] by Valdo Evans M.D. T: Report ID: [id number] Reading Location: [place] [address] Terri Alejo EXTRUSION DIE COORDINATOR IMG XR PROCEDURES Final Resul t * eGFR (10/13/2024 11:55 AM HOISTING ENGINEER) eGFR 79 >=60 mL/min/1. 73 m2 Comment: [...] of Race in Diagnosing Kidney Disease, JASN 202). The CKD-EPI equation should not be used for patients with unstable renal function and has not been validated in children and those over 70. Current interpretive data was last reviewed 2021. Blood 10/13/2024 11:5 5 AM HOISTING ENGINEER 10/13/2024 3:00 PM HOISTING ENGINEER us Gabo Hawkins MD LAB BLOOD ORDERABLES Final Result [facility] [address] [address] Department [place] [address] * (ABNORMAL) Differential, auto (10/13/2024 11:55 AM HOISTING ENGINEER) Neutrophil abs 9.3(H) 1.5 - 6.5 K/cumm Imm gran abs 0.1 0.0 - 0.1 K/cumm [facility] Lymphocyte abs 2.0 0.8 - 3.3 K/cumm [facility] Monocyte abs 0.8 0.2 - 0.8 K/cumm [facility] Eosinophil abs 0.3 0.0 - 0.5 K/cumm [facility] Basophil abs 0.1 0.0 - 0.1 K/cumm [facility] Neutrophil pct 74.3 % [facility] Comment: Interpretive Data Percent cell count reference ranges are not reported, since discordance with absolute values may lead to misinterpretation of CBC data. Current Interpretive Data was last revised on 2017. Imm gran pct 0.4 % [facility] Comment: Interpretive Data Percent cell count reference ranges are not reported, since discordance with absolute values may lead to misinterpretation of CBC data. Current Interpretive Data was last revised on 2017. Lymphocyte pct 15.8 % [facility] Comment: Interpretive Data Percent cell count reference ranges are not reported, since discordance with absolute values may lead to misinterpretation of CBC data. Current Interpretive Data was last revised on 2017. Monocyte pct 6.3 % [facility] Comment: Interpretive Data Percent cell count reference ranges are not reported, since discordance with absolute values may lead to misinterpretation of CBC data. Current Interpretive Data was last revised on 2017. Eosinophil pct 2.6 % [facility] Comment: Interpretive Data Percent cell count reference ranges are not reported, since discordance with absolute values may lead to misinterpretation of CBC data. Current Interpretive Data was last revised on 2017. Basophil pct 0.6 % [facility] Comment: Interpretive Data Percent cell count reference ranges are not reported, since discordance with absolute values may lead to misinterpretation of CBC data. Current Interpretive Data was last revised on 2017. Blood 10/13/2024 11:5 5 AM HOISTING ENGINEER 10/13/2024 2:51 PM HOISTING ENGINEER Gabo Hawkins MD LAB BLOOD ORDERABLES Final Result [facility] [address] [address] Department of Laboratories [place], [place] [id number] * (ABNORMAL) CBC with auto differential (10/13/2024 11:55 AM HOISTING ENGINEER) WBC 12.6(H) 3.8 - 9.9 K/cumm Hgb 11.7(L) 13.0 - 17.5 g/dL [facility] Hct 38.7(L) 38.9 - 50.3 % [facility] Plt 369 150 - 400 K/cumm [facility] MPV 10.5 9.1 - 12.3 fL [facility] RBC 4.91 4.30 - 5.80 M/cumm [facility] MCV 78.8(L) 81.3 - 96.4 fL [facility] MCH 23.8(L) 27.1 - 33.3 pg [facility] MCHC 30.2(L) 32.3 - 35.7 g/dL [facility] RDW CV 15.7(H) 11.1 - 14.9 % [facility] RDW SD 45.1 35.7 - 48.1 fL [facility] NRBC abs 0.00 0.00 - 0.01 K/cumm [facility] Blood 10/13/2024 11:5 5 AM HOISTING ENGINEER 10/13/2024 2:51 PM HOISTING ENGINEER Gabo Hawkins MD LAB BLOOD ORDERABLES Final Result Performing Organization Address [facility] de Phone Number [facility] [address] [address] [facility] [place] [address] * Albumin Creatinine Ratio, Urine (10/13/2024 11:55 AM HOISTING ENGINEER) Albumin Ur 34.0 mg/L Comment: Interpretive Data No reference range established. Current interpretive data was last revised 2019. Creatinine Ur 121.2 mg/dL [facility] Comment: Interpretive Data No reference range established. Current interpretive data was last revised 2019. Albumin Creatinine Ratio, Ur 28 1 - 29 mg/g [facility] Urine 10/13/2024 11:5 5 AM HOISTING ENGINEER 10/13/2024 2:51 PM HOISTING ENGINEER Result [facility] Gabo Hawkins MD LAB URINE ORDERABLES Final Result Performing Organization Address [facility] de Phone Number [facility] [id number] [address] [facility] [place] [address] * (ABNORMAL) Hemoglobin A1c (10/13/2024 11:55 AM HOISTING ENGINEER) Hgb A1C 8.9(H) 4.0 - 5.6 % Estimated Average Glucose 209 mg/dL [facility] Comment: The ADA recommends reporting an estimated Average Glucose (eAG) with all Hemoglobin A1c results using the equation derived from a study of 507 normal and diabetic adults. Minority populations were underrepresented and children were not included. (Diabetes Care 31:7660-4607, 2008). The eAG is not equivalent to a fasting glucose. Blood 10/13/2024 11:5 5 AM HOISTING ENGINEER 10/13/2024 2:51 PM HOISTING ENGINEER us Gabo Hawkins MD LAB BLOOD ORDERABLES Final Result [facility] [address] [address] Department [place] [address] * (ABNORMAL) Lipid panel (10/13/2024 11:55 AM HOISTING ENGINEER) Cholesterol 121 30 - 199 mg/dL Comment: [...] [facility] Blood 10/13/2024 11:5 5 AM HOISTING ENGINEER 10/13/2024 2:51 PM HOISTING ENGINEER us Gabo Hawkins MD LAB BLOOD ORDERABLES Final Result [facility] [address] [address] Department [place] [address] * Comprehensive metabolic panel (10/13/2024 11:55 AM HOISTING ENGINEER) Pathologist [facility] Sodium 136 135 - 145 mmol/L Potassium, [...] [facility] Blood 10/13/2024 11:5 5 AM HOISTING ENGINEER 10/13/2024 2:51 PM HOISTING ENGINEER us Gabo Hawkins MD LAB BLOOD ORDERABLES Final Result [facility] [address] [address] Department [place] [address] * PSA screen (05/15/2024 2:30 PM CDT) [...] BLOOD ORDERABLES Final Result Performing Organization Address [facility] de Phone Number [facility] [address] [place] [address] * Hepatitis C antibody Blood (05/15/2024 2:30 PM CDT) Pathologist [facility] Hep C Ab Nonreactive Nonreactive Comment: Interpretive [...] Edited Result - Final Performing Organization Address [facility] Co de Phone Number [facility] [address] [place] [address] * DIABETES EYE EXAM (12/16/2022) Pathologist [facility] SCRIBED DIABETIC DILATED EYE EXAM Comment:No Diabetic Retinopa thy us Historical Provider HEALTH MAINTENANCE Final Result * HM COLONOSCOPY (07/16/2021) us Historical Provider HEALTH MAINTENANCE Final Result from Last 3 Months or Most Recently Relevant to Health Maintenance Insurance BLUE ACC CHOICE [employer] [facility] ACCESS Care Teams Sales Training Manager Relationship Specialty Start Date End Date Gabo Hawkins MD [address] [place] [address] PCP - General Family Medicine 10/01/22 Ayush Sweet MD [address] [place] [address] Consulting Physician Cardiology 10/01/22
--- NOTE | 2025-01-04 07:22 | WPDSLEEPSTUD ---
Sleep Study Date of Study: 12/20/24 Ordering Provider: Jose R Chase APRN Interpreting Physician: Mini Cloud MD Sleep Study Type: Polysomnogram Height: 1.83 m Weight: 121.563 kg Body Mass Index: 36.3 Neck Circumference (inches): 19.5 Lynn: 7 Reason for Sleep Study Hypersomnolence; known obstructive sleep apnea, patient is retesting for new equipment Sleep History Simba Quijano is a 54-year-old man with obstructive sleep apnea, testing in the last 2 years, however his CPAP was defective, so he was not able to start treatment. There is a clinic note that indicates he was set up on CPAP through [facility] but he did not tolerate it well so it was discontinued and return to the [facility]. His travel trailer components assembler is concerned that his untreated sleep apnea is hurting his heart. He does have a history of CABG x 5 vessels, depression, anxiety, alcohol abuse, spinal injury in 2021 with residual neuropathy, asthma, bronchitis, heartburn and kidney disease. He rarely awakens from sleep feeling short of breath. He occasionally wakes at night with heartburn, belching or coughing.??He constantly snores, and this is always loud enough that others complain. He occasionally has trouble sleeping when he has a cold. He frequently wakes up gasping for breath during the night. He frequently has breathing problems at night reported to him by others. He frequently sweats excessively at night. He occasionally notices his heart pounding or beating irregularly during the night. He occasionally falls asleep during the day. He rarely falls asleep involuntarily, never falls asleep while driving. He never experiences loss of muscle tone with strong emotion. He occasionally has daytime difficulty at work due to excessive sleepiness. He is a computer systems designer. He never feels paralyzed on waking or falling asleep. He never experiences vivid dreams upon waking or falling asleep. He rarely feels afraid of going to sleep. He frequently has nightmares. He constantly recalls his dreams. He occasionally has thoughts racing through his mind. He occasional feels sad or depressed. He occasionally feels anxiety. He occasionally notices parts of his body jerk. He occasionally kicks during the night. He occasionally feels crawling or aching feelings in his legs. He occasionally feels leg pain at night. He rarely has morning jaw pain, rarely grinds his teeth at night. He occasionally feels bothered by pain during the day, rarely awakened by pain during the night. He rarely wakes up feeling stiff in the morning, and he rarely wakes feeling sore or achy. He occasionally awakens with pain in his neck, spine, or joints. Normal bedtime is between 10:00 p.m. and 11:00 p.m., falling asleep quickly if his stress level is low, waking between 3 and 4 times during the night to go to the bathroom. He is able to return to sleep within 10-20 minutes according to his Apple watch. Wake time is 6:00 a.m.. He typically gets between 3 and 5 hours of sleep per night, according to his Apple watch. He takes naps in the afternoon or evening, and a short nap lasting 10-15 minutes may be refreshing. Habits:??Tobacco: Never smoker Caffeine: 1 per day Alcohol: 3 per day Recreational substances: yes PMFSH Past Medical History Medical History DANITA (obstructive sleep apnea) History of rhabdomyolysis Peripheral neuropathy Asthma Type 2 diabetes mellitus Coronary artery disease Morbid obesity with BMI of 40.0-44.9, adult Mixed diabetic hyperlipidemia associated with type 2 diabetes mellitus Hypertension associated with diabetes Surgical History Surgical History History of five vessel coronary artery bypass (2019) Done at [facility]. Family History Family History Other Coronary artery disease Social History Social History Social History: Surrogate medical decision maker: yoli Dumont. Code status: Full code. Smoking status: Never smoker Alcohol intake: current Alcohol use details: History of heavier alcohol use. Occasional binges. Substance use: never Lack of Transportation: No Lack of Food: Never True Current Housing: I Have Housing Concerned About Future Housing: No Difficulty Paying Gas/Electric Bills: No Difficulty Paying for Meds: No Currently Unemployed: No Education: High School Diploma/GED Difficulty w/ Childcare or Family Care: No Additional living arrangements comments: Lives with severino and several of her family members have moved into their home as well. Additional occupation/education comments: Software. Spiritual care concerns: No Medications Home Medications ?Medication ?Instructions ?Recorded ?Confirmed ?Type albuterol sulfate 90 mcg/actuation 2 puff inhalation QID PRN 05/27/22 08/31/24 Rx aerosol inhaler shortness of breath or wheezing #8.5 grams metformin 1,000 mg tablet 1,000 mg PO BID 05/27/22 08/31/24 History atorvastatin 80 mg tablet 80 mg PO DAILY 05/03/23 08/31/24 History empagliflozin 25 mg tablet 25 mg PO DAILY 05/03/23 08/31/24 History (Jardiance) fluoxetine 20 mg capsule 40 mg PO DAILY 05/03/23 08/31/24 History hydrochlorothiazide 25 mg tablet 25 mg PO DAILY 05/03/23 08/31/24 History metoprolol succinate 100 mg 100 mg PO DAILY 05/03/23 08/31/24 History tablet,extended release 24 hr aspirin 81 mg tablet,delayed 81 mg PO QAM #30 tabs 05/07/23 08/31/24 Rx release isosorbide mononitrate 30 mg 30 mg PO QAM #30 tabs 05/07/23 08/31/24 Rx tablet,extended release 24 hr losartan 50 mg tablet (Cozaar) 50 mg PO DAILY #30 tabs 05/07/23 08/31/24 Rx clindamycin HCl 300 mg capsule 300 mg PO TID 14 days #42 caps 08/29/24 08/31/24 Rx naproxen 500 mg tablet (Naprosyn) 500 mg PO BID PRN pain #30 tabs 08/29/24 08/31/24 Rx beclomethasone dipropionate 40 1 inh inhalation Q12H #10.6 grams 08/31/24 08/31/24 Rx mcg/actuation HFA breath activated aerosol (Qvar RediHaler) Sleep Procedure A full night polysomnogram using the [employer] multi-channel system recorded the standard physiologic parameters including EEG, EOG, submentalis EMG, anterior tibialis EMG, EKG, body position, nasal and oral airflow using nasal pressure sensor and thermistor. Respiratory parameters of chest and abdominal movements were recorded with Respiratory Inductance Plethysmography belts. Oxygen saturation was recorded by pulse oximetry. Video monitoring was also performed. Sleep stages, periodic limb movements, and EEG arousals were scored in 30 second epochs according to the criteria of the AASM Scoring Manual. The Apnea-Hypopnea Index was calculated using [facility] guidelines for definition of hypopnea with 4% O2 desaturations while scoring respiratory events. Sleep Architecture The total recording time was 475.6 minutes. The total sleep time was 260.5 minutes. Sleep latency was 51.0 minutes. REM latency was 67.5 minutes. Sleep efficiency was 54.8%. The patient had 137 awakenings for an awakening index of 31.6. Wake after sleep onset time was 164.0 minutes. The patient spent 120.5 minutes, 46.3% of total sleep time in Stage N1. The patient spent 101.0 minutes, 38.8% in Stage N2. The patient spent no time in Stage N3. The patient spent 39.0 minutes, 15.0% in Stage REM sleep. Respiratory Analysis The patient had 96 hypopneas, 219 obstructive apneas, 1 mixed apnea, and no central apneas for an overall Apnea Hypopnea Index of 69.8. The REM Apnea Hypopnea Index was 56.9. The NREM Apnea Hypopnea Index was 72.1. The patient had a Central Apnea Hypopnea Index of 0. There were no Respiratory Effort Related Arousals. The Respiratory Disturbance Index is 73.5 events per hour. There was no evidence of Loc-Diaz Respirations. Arousals There were 293 total arousals for an arousal index of 67.5. There were 50 spontaneous arousals for an index of 11.5. There were 240 arousals due to respiratory events for an index of 55.3. There were no arousals due to periodic limb movements. There were 3 arousals due to isolated limb movements for an index of 0.7. Periodic Limb Movements The patient had 17 isolated limb movements with an index of 3.9. The patient had 4 periodic limb movements with an index of 0.9. Patient had a total of 21 limb movements with a total limb movement index of 4.8. Oximetry Data The patient had an average oxygen saturation of 92.4% in sleep with a minimum oxygen saturation of 78% and a maximum oxygen saturation of 98%. The patient had 256 oxygen desaturations that were 4% or greater resulting in an Oxygen Desaturation Index of 59.0. The patient spent 30.8 minutes, 6.7% of total sleep time with an oxygen saturation below 88%. Snoring Profile Snoring was mild to moderate. Cardiac Profile The EKG showed normal sinus rhythm, average pulse rate of 79.3 bpm with a minimum pulse of rate of 55 bpm and a maximum pulse rate of 101 bpm. No arrhythmias were noted. EEG Profile No evidence of seizures. Assessment and Plan Assessment and Plan (1) DANITA (obstructive sleep apnea): Code(s): G47.33 - Obstructive sleep apnea (adult) (pediatric) Status: Acute Assessment and Plan: This basic nocturnal polysomnogram on 12/20/2024 shows extremely severe obstructive sleep apnea, overall apnea-hypopnea index 69.8, desaturation to 78% with 30.8 minutes spent below 88%. Patient had [id number] snoring. A split night study was not performed because the patient had a prolonged sleep latency and frequent interruptions in his sleep with shifts between wake, stage I and stage II. Events were worse in the supine position. The supine AHI was 83.6, nonsupine AHI 65.6. No central apneas were noted. The patient needs to have a full night CPAP titration in the sleep lab with a sleep aid available for use, if needed, to get to sleep and stay asleep. Consider Ambien 5-10 mg or Lunesta 2-3 mg. Patient absolutely should not nap on the day of the study. He had a prolonged sleep latency on this test 51 minutes and with his fragmented sleep he did not qualify early enough in the night to start CPAP so this was conducted as a full night basic nocturnal polysomnogram. BMI is 36.3. Weight management is advised. Clinical data suggests that weight loss of 10% can reduce the severity of respiratory events and snoring and improve AHI by as much as 25%. Data The data obtained during this sleep study is adequate for interpretation. Certification This sleep study has been reviewed by a board certified sleep medicine physician.
[2025-01-04 20:56] VITALS: BMI 36.3
== END 2024-12-21 06:46 | disposition home or self-care (01) ==
PROVIDERS: PCP Family Medicine; Visit Provider Nurse Practitioner Family
DX: G47.33 Obstructive sleep apnea (adult) (pediatric) (principal); I10 Essential (primary) hypertension
CPT/HCPCS: 95810